=== PATIENT | female | born 1945 | race Caucasian/White ===

== ENCOUNTER → 2017-07-28 13:34 | Outpatient (CLI) | payer MEDICARE, SELFPAY ==
[2017-07-28 16:59] LABS: Absolute Lymphocyte Count 1.54 X10^3/ul (0.83-4.51); Absolute Neutrophil Count 3.5 X10^3/uL (2.0-7.7); Basophil# 0.02 X10^3/uL; Basophil% 0.3 % (0-1); Eosinophil# 0.16 X10^3/uL; Eosinophils% 2.8 % (0-5); Hematocrit 40.8 % (37-47); Hemoglobin 12.7 g/dl (12.0-15.0); Lymphocyte # 1.54 X10^3/ul (4.0); Lymphocyte % 26.5 % (19-41); Mean Corp Hgb Conc 31.1 g/gl (32-36); Mean Corpuscular Hgb 30.6 pg (27.0-32.0); Mean Corpuscular Volume 98.3 fL (81-99); Mean Platelet Vol. 9.5 fl (6.2-12.0); Monocyte# 0.58 X10^3/uL; Neutrophil % 60.2 % (47-70); Platelet Count 248 K/mm3 (150-450); RBC Distribution Width CV 15.6 % (11.6-14.6); RBC Distribution Width SD 55.6 fl (35.1-43.9); Red Blood Count 4.15 M/mm3 (4.2-5.4); White Blood Count 5.8 K/mm3 (4.4-11.0)
[2017-07-28 17:04] LABS: POSITIVE COUNT NO; POSITIVE DIFFERENTIAL NO; POSITIVE MORPHOLOGY NO
[2017-07-28 17:31] LABS: ALB/GLOB Ratio 0.8 RATIO (0.9-2.4); AST(SGOT) 21 U/L (15-37); Alanine Aminotransfer ALT/SGPT 30 U/L (13-56); Albumin, Serum 3.3 g/dL (3.2-5.0); Alkaline Phosphatase 136 U/L (45-117); Anion Gap 10 (5-15); BUN 25 mg/dL (7-18); BUN/Creat Ratio 20.7 RATIO (10-20); Calcium,Total 8.9 mg/dL (8.5-10.1); Chloride 104 mmol/L (98-107); Creatinine, Serum 1.21 mg/dL (0.55-1.02); EST Glomerular Filtration Rate 47 mL/min (>60); Est Glom Filt Rate - Afr Amer 56 mL/min (>60); Globulin 3.9 g/dL (2.2-4.2); Glucose 88 mg/dL (74-106); Potassium 4.9 mmol/L (3.5-5.1); Protein, Total 7.2 g/dL (6.4-8.2); Sodium Level 140 mmol/L (136-145)
[2017-07-29 09:33] LABS: Vitamin D,25 Hydroxy 23.4 ng/mL (29.95-100.01)
== END ==
PROVIDERS: Family Provider Family Medicine Geriatric Medicine; PCP Family Medicine Geriatric Medicine; Visit Provider Family Medicine Geriatric Medicine
DX: E55.9 Vitamin D deficiency, unspecified (principal); I10 Essential (primary) hypertension
CPT/HCPCS: 36415; 80053; 82306; 84443; 85025

== ENCOUNTER 2017-09-15 15:00 | Outpatient (RCR) | payer MEDICARE, SELFPAY ==
--- NOTE | 2017-08-09 15:06 | HP.PTEVAL_ITS ---
Patient's Visit Information JOANIE RAMIREZ is a 72 year old F referred to Physical Therapy by Reynold DOVE with a diagnosis of Balance therapy.. Date of Evaluation: 08/09/17 Physical Therapist: Eligio Lane DPT, OC - Visit Plan Frequency: 2x /Week Duration: 4 Weeks Plan: Computerized bnalance test and then 2x/week for 4 weeks for: 1. VOR progression. 2. Balance focussing on weight shifts and vestibular. 3. General home based ex for LE /Postural strength. - Subjective Subjective: April had a TIA and balance has been off ever since. 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 Balance may have been off prior to TIA. Had a fall before the TIA but not since. No dizzyness. Does not need cane or walker. When she is walking it feel slike she veers to the right. H/O LBP and neuropathic pain and numbness in feet. Sleep is OK. Exercises: no. Does not work outside home. Does house hold chores and has son and law and grandson living with her(3 yo). Basic ADLs are OK with balance but is careful. Hobbies include hanging out with family. - Objective Walks slowly but I into PT. Transfers I. Gait is slightly neuropathic. VOR walking is challenging to keep eyes on target and veers R slightly. foam stance with ec is challenging. UE and LE AROM WFL. reflexes 0/3 in patella and achilles. Sensation diminished to gross light touch in feet and ankles. Strength LE ankles 4-/5, knee flex and ext 4/5 and hip flexion abd ext 3+/5. UE strength grossly 4-/5. - Balance Scores Functional Gait Assessment Score: 21 % Disability: 30.0000 CATSIB Score (Max score 120 seconds): 104 - Goals Goal 1:: FGA 25/30 to reduce fall risk. Goal Time Frame: 4-6 Weeks Goal 2:: Computerized balance testing and review results Goal Time Frame: 2 Weeks Goal 3:: I approp HEP to minimize future problems with neuropathy/strength/ balance. Goal Time Frame: 4-6 Weeks - Rehabilitation Potential Physical Therapy Diagnosis: Balance deficits. Rehabilitation Potential: Fair - Anticipated Interventions Patient/Client Instruction: Educate patient on: Condition, Risk Factors For the Purpose of:: To improve safety Therapeutic Exercise to Include: Strength training, Balance training For the Purpose of:: To improve ability of physical actions for home/community/ work/leisure, To improve safety Thank you for the opportunity to evaluate your patient. For Medicare and Medicare HMO plans, please review the plan of care and approve it. It will need to be FAXED BACK to us at [phone] for Medicare purposes. Please let me know if there are questions or concerns regarding this plan of care. Physician Signature: Date:
--- NOTE | 2017-08-16 15:36 | HP.PTCOM ---
PT Communication Note 08/16/[address] Reynold Samayoa , Thank you for the referral of Hawa to [facility] for balance assessment. I have enclosed a copy of the results for your review. In summation, she showed a general diminished ability to prioritize the sensory systems for her balance. She showed a discomfort with forward weight shift excursion and reaction time. Her Motor Control Test and Adaptation Test were normal. If there are questions regarding these results, please feel free to call me. I plan to see her 2x/week for 4 weeks to wrok on these deficits and a general ex program. Thank you for this referral. Sincerely, Eligio Lane DPT, OC Contact Information
--- NOTE | 2017-08-16 15:41 | HP.PTCOM_ITS ---
PT Communication Note 08/16/[address] Reynold Samayoa , Thank you for the referral of Hawa to [facility] for balance assessment. I have enclosed a copy of the results for your review. In summation, she showed a general diminished ability to prioritize the sensory systems for her balance. She showed a discomfort with forward weight shift excursion and reaction time. Her Motor Control Test and Adaptation Test were normal. If there are questions regarding these results, please feel free to call me. I plan to see her 2x/week for 4 weeks to wrok on these deficits and a general ex program. Thank you for this referral. Sincerely, Eligio Lane DPT, OC Contact Information
--- NOTE | 2017-09-15 15:58 | HP.PTDCSUM_ITS ---
HP - PT D/C Summary It has been my pleasure to treat JOANIE RAMIREZ under orders from [employer] Yao, for the diagnosis of Balance therapy. for a total of 9 visit(s). Discharge Date: 09/15/17 Please see the following information for a summary of their discharge status. - Subjective Subjective: Still has unsteady feeling when she stands up and turns without bracing. That is the main time. HEP: doing ball squeezes and band ex home with UE and LE. - Pain bilat. LE Pain Intensity (Out of 10): 0 - Overall Improvement % Improvement: 10 - Objective Objective/Function: +5 on FGA, romberg and on foam much better. Pt not feeling much better. - Goals Goal 1:: FGA 25/30 to reduce fall risk. Goal Progress: Goal Met Goal 2:: Computerized balance testing and review results Goal Progress: Goal Met Goal 3:: I approp HEP to minimize future problems with neuropathy/strength/ balance. Goal Progress: Goal Met - Plan Plan: D/C - D/C Information Discharge Comments: To continue HEP on own. Not feeling better but testing much better. If there are questions or concerns regarding this patient's physical therapy, please feel free to call me at [phone]. Thank you for the referral of this patient. Sincerely, Eligio Lane, ALEXAT, OC
== END 2017-09-15 19:00 | disposition home or self-care (01) ==
LOC: PT 15:00
PROVIDERS: Family Provider Family Medicine Geriatric Medicine; PCP Family Medicine Geriatric Medicine; Visit Provider Family Medicine Geriatric Medicine
DX: R26.9 Unspecified abnormalities of gait and mobility (principal)
CPT/HCPCS: 97110; 97162; 97530; 97750

== ENCOUNTER 2017-11-12 22:27 | Observation (INO) | payer MEDICARE, SELFPAY ==
[2017-11-12 22:28] VITALS: BP 198/74; PULSE 69; RESP 18; TEMP 36.6; O2SAT 97; BMI 32.5
--- NOTE | 2017-11-12 22:48 | CT_ITS ---
STUDY: CTA NECK WITH CONTRAST REASON FOR EXAM: Female, 72 years old. Headache RADIATION DOSAGE (If Supplied By Facility): CTDIvol = ( 27.86 ) mGy, DLP = ( 1460.79 ) mGycm TECHNIQUE: CT angiography with multi-detector data acquisition was performed from the aortic arch to the skull base following intravenous administration of 100 ml of Isovue 370 contrast. MIP images were reconstructed from the axial data set. Post-processing of the angiographic images was performed, with multiplanar reformation and 3D reconstruction. Individualized dose optimization techniques were used for this CT. COMPARISON: None. FINDINGS: AORTIC ARCH: Normal visualized aortic arch. Normal origins of the brachiocephalic, left common carotid, and left subclavian arteries. RIGHT CAROTID ARTERIES: Normal right common carotid artery (CCA). There is mild atherosclerotic plaque formation with minimal narrowing of the right carotid bulb. There is mild atherosclerotic plaque formation of the origin of the right internal carotid artery with less than 50% cross sectional diameter stenosis. There is atherosclerotic tortuous elongation of the cervical portion of the right internal carotid artery. Normal origin of the right external carotid artery (ECA). LEFT CAROTID ARTERIES: Normal left common carotid artery (CCA). There is mild atherosclerotic plaque formation with minimal narrowing of the left carotid bulb. There is mild atherosclerotic plaque formation of the origin of the left internal carotid artery with less than 50% cross sectional diameter stenosis. There is atherosclerotic tortuous elongation of the cervical portion of the left internal carotid artery. Normal origin of the left external carotid artery (ECA). VERTEBRAL ARTERIES: Normal bilateral vertebral arteries. CT/CTA Neck W/WO Contrast IMPRESSION: There is calcified plaque at the carotid bulbs without evidence of stenosis. There is tortuous elongation of the cervical internal carotid arteries laterally, greater on the RIGHT. There is NO dissection. The vertebral arteries are patent and normal in caliber. Electronically Signed: Mahesh Teague MD at 0:32 EDT , Service support ,
--- NOTE | 2017-11-12 22:48 | EKG12_ITS ---
Test Reason : Blood Pressure : / mmHG Vent. Rate : 057 BPM Atrial Rate : 057 BPM P-R Int : 148 ms QRS Dur : 086 ms QT Int : 458 ms P-R-T Axes : 030 007 019 degrees QTc Int : 445 ms Sinus bradycardia Otherwise normal ECG Confirmed by SAFIA MEDINA, PETER ([id number]), scientific publications editor [employer] [place] ([id number]) on 11/14/2017 3:04:50 PM Referred By: Eligio Quick Confirmed By:PETER BAIG MD
--- NOTE | 2017-11-12 22:48 | CT_ITS ---
STUDY: CTA OF THE BRAIN REASON FOR EXAM: Female, 72 years old. TIA RADIATION DOSAGE (If Supplied By Facility): CTDIvol = ( 27.86 ) mGy, DLP = ( 1460.79 ) mGycm TECHNIQUE: CT angiography was performed with a multi-detector CT scanner. Data acquisition was obtained from the skull base through the vertex following intravenous administration of ml of . MIP images were reconstructed from the axial data set. Post-processing of the angiographic images was performed, with multiplanar reformation and 3D reconstruction. Individualized dose optimization techniques were used for this CT. COMPARISON: None. FINDINGS: Normal bilateral petrous carotid arteries. Normal right cavernous carotid artery with a normal supraclinoid bifurcation. Normal left cavernous carotid artery with a normal supraclinoid bifurcation. Normal right A1 segments of the anterior cerebral artery. Normal left A1 segments of the anterior cerebral artery. Normal intact anterior communicating artery (ACOM). Normal bilateral A2 segments of the anterior cerebral arteries. Normal right M1 and M2 segments of the middle cerebral arteries, with a normal M1 bifurcation. Normal left M1 and M2 segments of the middle cerebral arteries, with a normal M1 bifurcation. Normal right posterior communicating artery (PCOM). Normal left posterior communicating artery (PCOM). Normal bilateral vertebral arteries. Normal basilar artery with a normal basilar bifurcation. The visualized bilateral superior cerebellar (SCA) arteries are normal. Normal bilateral P1, P2 and visualized P3 segments of the posterior cerebral arteries. There is no demonstrated aneurysm of the [place]. There is no demonstrated abnormality of the visualized brain. CT/CTA Head W/WO Contrast IMPRESSION: Normal [place] without a demonstrated aneurysm or hemodynamically significant stenosis. Electronically Signed: Mahesh Teague MD at 1:04 EDT , Service support ,
--- NOTE | 2017-11-12 22:48 | RAD_ITS ---
STUDY: X-RAY CHEST REASON FOR EXAM: Female, 72 years old. Shortness of breath TECHNIQUE: Frontal view COMPARISON: None. FINDINGS: There are fibrotic changes at the LEFT lung base. There are NO active infiltrates. There is NO pleural effusion or pneumothorax. Normal size heart. Normal mediastinum and carlos manuel. Normal visualized pulmonary arteries. Normal visualized aortic arch and descending thoracic aorta. Normal visualized thoracic spine. Normal visualized ribs, clavicles, and shoulders. There is no demonstrated abnormality of the visualized soft tissue structures of the upper abdomen. RAD/Chest 1 View IMPRESSION: There is NO acute cardiopulmonary abnormality. Electronically Signed: Mahesh Teague MD at 0:21 EDT , Service support ,
--- NOTE | 2017-11-12 23:04 | ED.VISSUMM ---
- ER Visit Summary Date of Service: 11/12/17 Chief Complaint: Right facial droop History of Present Illness: The patient is a 72 F presents complaining of right facial droop, headache. Patient states she has had a gradual onset headache that has been persistent throughout the day. Around 10 PM this evening her family noticed a right facial droop. This has since improved. She had no difficulty with speech. She has had bilateral blurry vision throughout the day as well. She denies confusion. She also complains of numbness to the right side of her face as well as right foot. Denies other complaints. Physical Examination: Vitals are stable. Patient is afebrile. Alert no acute distress. HEENT exam is unremarkable. Neck is supple. Lungs are clear and equal bilaterally. Heart is regular rate and rhythm. Abdomen is soft nontender nondistended. Extremities are unremarkable. Skin is warm and dry. NIH 1-decreased sensation on right face and lower extremity Remainder of exam is unremarkable. Emergency Department Course and Treatment: EKG sinus bradycardia rate of 57. CBC is unremarkable. Chemistries show glucose 123, BUN 26, creatinine 1.58. INR 0.9. Troponin is negative. Chest x-ray shows no acute process. CTA neck shows there is calcified plaque at the carotid bulbs without evidence of stenosis. There is tortuous elongation of the cervical internal carotid arteries laterally, greater on the RIGHT. There is NO dissection. The vertebral arteries are patent and normal in caliber. CTA head shows normal [place] without a demonstrated aneurysm or hemodynamically significant stenosis. On reevaluation, her facial droop and right-sided facial numbness have resolved. She has mild subjective paresthesia of the right lower extremity. Discussed with the hospitalist for admission. Disposition: Observation Impression: TIA This note was generated with [employer] dictation software. It may contain incorrect words, spelling, and punctuation that were not noted in review of the chart prior to signing ED Disposition - Plan for ED Patient: Chief Complaint: General Illness Referrals: Reynold Samayoa Chi, MD [Primary Care Provider] -
[2017-11-12 23:07] LABS: International Normalized Ratio 0.9; Partial Thromboplast Time 27.5 Seconds (24.1-36.2); Prothrombin Time (Protime)PT. 12.5 SECONDS (11.7-14.9)
[2017-11-12 23:16] LABS: Anion Gap 7 (5-15); BUN 26 mg/dL (7-18); BUN/Creat Ratio 16.5 RATIO (10-20); Calcium,Total 8.7 mg/dL (8.5-10.1); Chloride 101 mmol/L (98-107); Creatinine, Serum 1.58 mg/dL (0.55-1.02); EST Glomerular Filtration Rate 34 mL/min (>60); Est Glom Filt Rate - Afr Amer 41 mL/min (>60); Estimated Creatinine Clearance 26.62 ml/min; Glucose 123 mg/dL (74-106); Potassium 3.5 mmol/L (3.5-5.1); Sodium Level 140 mmol/L (136-145)
[2017-11-12 23:22] LABS: Absolute Lymphocyte Count 2.23 X10^3/ul (0.83-4.51); Absolute Neutrophil Count 3.5 X10^3/uL (2.0-7.7); Basophil# 0.01 X10^3/uL; Basophil% 0.2 % (0-1); Eosinophil# 0.18 X10^3/uL; Eosinophils% 2.8 % (0-5); Hematocrit 42.2 % (37-47); Hemoglobin 13.5 g/dl (12.0-15.0); Lymphocyte # 2.23 X10^3/ul (4.0); Lymphocyte % 34.3 % (19-41); Mean Corpuscular Hgb 30.7 pg (27.0-32.0); Mean Corpuscular Volume 95.9 fL (81-99); Mean Platelet Vol. 9.5 fl (6.2-12.0); Monocyte# 0.59 X10^3/uL; Monocyte% 9.1 % (0-10); Neutrophil % 53.6 % (47-70); Platelet Count 215 K/mm3 (150-450); RBC Distribution Width CV 14.1 % (11.6-14.6); White Blood Count 6.5 K/mm3 (4.4-11.0)
[2017-11-12 23:26] LABS: POSITIVE COUNT NO; POSITIVE DIFFERENTIAL NO; POSITIVE MORPHOLOGY NO
[2017-11-13] VITALS (13 sets, daily range): BP systolic 123–155; BP diastolic 51–90; PULSE 53–73; RESP 14–18; TEMP 36.4–36.7; O2SAT 92–98; BMI 32.5
[2017-11-13 00:26] LABS: Bedside Glucose 109 mg/dL (70-110)
--- NOTE | 2017-11-13 02:47 | PCM.HP.STD ---
Problem List (1) S/P total hip arthroplasty Status: Acute Comment: [facility] Dr Tamayo, 03/14/15 (2) Hypertension Status: Chronic (3) Obesity (BMI 30.0-34.9) Status: Chronic (4) Osteoarthritis Status: Chronic (5) TIA (transient ischemic attack) Status: Acute History of Present Illness Date of Admission: 11/12/17 Chief Complaint: TIA The patient is a 72 year old female w/ h/o HTN, TIA, and OA admitted for TIA. She has right facial droop around 7PM. Droop started sudden and slowly resolved over the next few hours. No speech or weakness noted. She also noted blurry vision. She also has a frontal headache at that time. Headache is dull-aching and constant. Headache improved over the next few hours as well. Nothing made the headache better or worse. Headache was severe. Past Medical History Past Medical History (Chronic Problems): Chronic Problems Hypertension (Chronic) Osteoarthritis (Chronic) Obesity (BMI 30.0-34.9) (Chronic) Allergies Penicillins Adverse Reaction (Verified 11/12/17 22:31) Upset Stomach Home Medications: Ambulatory Orders Medication Instructions Recorded Cholecalciferol (VIT D3) [Vitamin 1,000 unit PO DAILY 03/13/15 D3] Hydrochlorothiazide 12.5 mg PO DAILY 03/13/15 Losartan Potassium [Cozaar] 100 mg PO DAILY 03/13/15 Metoprolol(XL)Succ [Toprol Xl 100 mg PO DAILY 03/13/15 (Beta Mikel)] Nitroglycerin [Nitrostat] 0.4 mg SUBLINGUAL Q5M PRN 03/13/15 Omeprazole [Prilosec] 20 mg PO DAILY 03/13/15 Pravastatin [Pravachol] 40 mg PO QHS 03/13/15 Acetaminophen [Tylenol Tablet] 650 mg PO Q4H PRN PRN #0 tablet 04/08/15 Oxycodone HCl/Acetaminophen 1 - 2 tablet PO Q4H PRN PRN #30 04/08/15 [Percocet 5-325] tablet Senna/Docusate Sodium [Senokot-S] 2 tablet PO BID #0 tablet 04/08/15 Baclofen 10 mg PO QHS 11/13/17 Famotidine 40 mg PO BID 11/13/17 Gabapentin [Neurontin] 300 mg PO QHS 11/13/17 Plavix 75 mg PO DAILY 11/13/17 Surgical History: total hip arthroplasty - right, 03/24/15, Dr Tamayo, [facility], tonsillectomy Psychiatric History: No pertinent psych hx [employer] History: No pertinent [employer] history Smoking Status: Former smoker - *Family History Maternal History Items: Heart Disease - age 79 Paternal History Items: - - in 60's mental health Offspring History Items: - - 3 children in good health Review of Systems Constitutional: Denies: Chills, Fever, Weight Change Eyes: Reports: Blurred vision HEENT: Denies: Head Aches, Sinus Congestion, Sinus Drainage Cardiovascular: Denies: Chest Pain, Palpitations Respiratory: Denies: Cough, Shortness of breath at rest, Sputum production Gastrointestinal: Denies: Abdominal Pain, Nausea, Vomiting Genitourinary: Denies: Dysuria Musculoskeletal: Denies: Joint Pain, Joint Tenderness Skin: Denies: Rash, Wounds Neurological: Reports: Blurred vision, - - Right facial droop. Denies: Focal weakness, Numbness, Tingling Psychiatric: Denies: Anxiety, Depression, Homicidal Ideations, Suicidal Ideations Hematologic/ Lymphatic: Denies: Easy Bruising, Easy Bleeding VTE Information - Inpt Only VTE Present on Admission: No VTE Mechan Device Prophylaxis: SCD's VTE Pharm Prophylaxis ordered?: Yes Patient Problems: Active and Suspected Problems TIA (transient ischemic attack) (Acute) - Physical Exam General: Alert, Oriented x3, Cooperative HEENT: Atraumatic, PERRLA, EOMI, Normocephalic Neck: Supple, No JVD, Negative Carotid Bruits Lungs: Clear to auscultation, Normal air movement Cardiovascular: Regular rate, No murmurs Abdomen: Bowel Sounds Present, Soft, Non Tender Extremities: No edema, Capillary Refill Less than 3 Seconds Skin: No rashes, No breakdown Musculoskeletal: No Tenderness to Palpation of Joints or Extremities Neurological: Cranial nerves II-XII grossly intact Psych/Mental Status: Normal Affect, Appropriate Vital Signs Temp Pulse Resp BP Pulse Ox 97.8 F 61 15 135/55 H 94 11/12/17 22:28 11/13/17 00:29 11/13/17 00:29 11/13/17 00:29 11/13/17 00:29 Assessment/Plan All Active Problems TIA (transient ischemic attack) (Acute) S/P total hip arthroplasty (Acute) Anemia (Ruled-out) 72 year old female w/ h/o HTN, TIA, and OA admitted for TIA. 1) Right facial droop: Most likely secondary to TIA. Resolved. CTA negative. Will get MRI and ECHO in AM. Previous workup in April 2017 for TIA negative. C/w ASA and statin. Supportive care. 2) HTN: SBP 120s. C/w meds. Monitor. 3) TRACE: Most likely secondary to azotemia. Hydration. Monitor.
--- NOTE | 2017-11-13 02:48 | NURSING ---
Called ED charge master specialist, Liz at this time to confirm Pt okay to come to PCU.
--- NOTE | 2017-11-13 02:59 | HP.PCM_ITS ---
Problem List (1) S/P total hip arthroplasty Status: Acute Comment: [facility] Dr Tamayo, 03/14/15 (2) Hypertension Status: Chronic (3) Obesity (BMI 30.0-34.9) Status: Chronic (4) Osteoarthritis Status: Chronic (5) TIA (transient ischemic attack) Status: Acute History of Present Illness Date of Admission: 11/12/17 Chief Complaint: TIA The patient is a 72 year old female w/ h/o HTN, TIA, and OA admitted for TIA. She has right facial droop around 7PM. Droop started sudden and slowly resolved over the next few hours. No speech or weakness noted. She also noted blurry vision. She also has a frontal headache at that time. Headache is dull-aching and constant. Headache improved over the next few hours as well. Nothing made the headache better or worse. Headache was severe. Past Medical History Past Medical History (Chronic Problems): Chronic Problems Hypertension (Chronic) Osteoarthritis (Chronic) Obesity (BMI 30.0-34.9) (Chronic) Allergies Penicillins Adverse Reaction (Verified 11/12/17 22:31) Upset Stomach Home Medications: Ambulatory Orders Medication Instructions Recorded Cholecalciferol (VIT D3) [Vitamin 1,000 unit PO DAILY 03/13/15 D3] Hydrochlorothiazide 12.5 mg PO DAILY 03/13/15 Losartan Potassium [Cozaar] 100 mg PO DAILY 03/13/15 Metoprolol(XL)Succ [Toprol Xl 100 mg PO DAILY 03/13/15 (Beta Mikel)] Nitroglycerin [Nitrostat] 0.4 mg SUBLINGUAL Q5M PRN 03/13/15 Omeprazole [Prilosec] 20 mg PO DAILY 03/13/15 Pravastatin [Pravachol] 40 mg PO QHS 03/13/15 Acetaminophen [Tylenol Tablet] 650 mg PO Q4H PRN PRN #0 tablet 04/08/15 Oxycodone HCl/Acetaminophen 1 - 2 tablet PO Q4H PRN PRN #30 04/08/15 [Percocet 5-325] tablet Senna/Docusate Sodium [Senokot-S] 2 tablet PO BID #0 tablet 04/08/15 Baclofen 10 mg PO QHS 11/13/17 Famotidine 40 mg PO BID 11/13/17 Gabapentin [Neurontin] 300 mg PO QHS 11/13/17 Plavix 75 mg PO DAILY 11/13/17 Surgical History: total hip arthroplasty - right, 03/24/15, Dr Tamayo, [facility], tonsillectomy Psychiatric History: No pertinent psych hx BINDERY CHIEF History: No pertinent BINDERY CHIEF history Smoking Status: Former smoker - *Family History Maternal History Items: Heart Disease - age 79 Paternal History Items: - - in 60's mental health Offspring History Items: - - 3 children in good health Review of Systems Constitutional: Denies: Chills, Fever, Weight Change Eyes: Reports: Blurred vision HEENT: Denies: Head Aches, Sinus Congestion, Sinus Drainage Cardiovascular: Denies: Chest Pain, Palpitations Respiratory: Denies: Cough, Shortness of breath at rest, Sputum production Gastrointestinal: Denies: Abdominal Pain, Nausea, Vomiting Genitourinary: Denies: Dysuria Musculoskeletal: Denies: Joint Pain, Joint Tenderness Skin: Denies: Rash, Wounds Neurological: Reports: Blurred vision, - - Right facial droop. Denies: Focal weakness, Numbness, Tingling Psychiatric: Denies: Anxiety, Depression, Homicidal Ideations, Suicidal Ideations Hematologic/ Lymphatic: Denies: Easy Bruising, Easy Bleeding VTE Information - Inpt Only VTE Present on Admission: No VTE Mechan Device Prophylaxis: SCD's VTE Pharm Prophylaxis ordered?: Yes Patient Problems: Active and Suspected Problems TIA (transient ischemic attack) (Acute) - Physical Exam General: Alert, Oriented x3, Cooperative HEENT: Atraumatic, PERRLA, EOMI, Normocephalic Neck: Supple, No JVD, Negative Carotid Bruits Lungs: Clear to auscultation, Normal air movement Cardiovascular: Regular rate, No murmurs Abdomen: Bowel Sounds Present, Soft, Non Tender Extremities: No edema, Capillary Refill Less than 3 Seconds Skin: No rashes, No breakdown Musculoskeletal: No Tenderness to Palpation of Joints or Extremities Neurological: Cranial nerves II-XII grossly intact Psych/Mental Status: Normal Affect, Appropriate Vital Signs Temp Pulse Resp BP Pulse Ox 97.8 F 61 15 135/55 H 94 11/12/17 22:28 11/13/17 00:29 11/13/17 00:29 11/13/17 00:29 11/13/17 00:29 Assessment/Plan All Active Problems TIA (transient ischemic attack) (Acute) S/P total hip arthroplasty (Acute) Anemia (Ruled-out) 72 year old female w/ h/o HTN, TIA, and OA admitted for TIA. 1) Right facial droop: Most likely secondary to TIA. Resolved. CTA negative. Will get MRI and ECHO in AM. Previous workup in April 2017 for TIA negative. C/w ASA and statin. Supportive care. 2) HTN: SBP 120s. C/w meds. Monitor. 3) TRACE: Most likely secondary to azotemia. Hydration. Monitor.
--- NOTE | 2017-11-13 03:23 | ECHOD_ITS ---
Reason For Study: TIA/CVA Procedure This was a 2D Doppler, Color Flow transthoracic echocardiogram. The exam was of fair technical quality due to diminished acoustic windows. The study was technically difficult. Exam performed portable in patient room. PT'S IV WAS ALREADY REMOVED SHE WAS DISCHARGED BEFORE ECHO WAS DONE. Left Ventricle Normal LV size. Left ventricular systolic function is normal. The estimated ejection fraction is 65 %. No regional wall motion abnormalities noted. Right Ventricle Normal RV size. Normal systolic function. Atria The left atrium is moderately enlarged. Normal right atrium. No doppler evidence for ASD. Mitral Valve There is no mitral annular calcification. Normal mitral valve. Mild (1+) mitral valve insufficiency. Tricuspid Valve Normal tricuspid valve. Trivial tricuspid valve insufficiency. Right ventricular systolic pressure estimated to be 27 mmHg. Aortic Valve The aortic valve is not well visualized. Pulmonic Valve The pulmonic valve is not well visualized. Great Vessels Normal sized aortic root. Pericardium/Pleural No pericardial effusion. MMode/2D Measurements & Calculations LVIDd: 4.6 cm IVSd: 1.1 cm Ao root diam: 3.1 cm LVIDs: 3.0 cm LVPWd: 1.00 cm LA dimension: 4.1 cm RVDd: 2.6 cm FS: 35.0 % LAV(MOD-bp): 65.6 ml LA A4 area: 20.8 cm2 RA A4 area: 14.5 cm2 LAV(MOD-bp) Indexed: 35.2 ml/m2 LAV(MOD-sp2): 60.3 ml LAV(MOD-sp4): 66.1 ml Doppler Measurements & Calculations MV E max ric: 102.0 cm/sec Lat Peak E' Ric: 11.5 cm/sec Med Peak E' Ric: 8.9 cm/sec MV A max ric: 90.7 cm/sec E/E' lat: 8.9 E/E' med: 11.5 MV E/A: 1.1 Ao V2 max: 143.8 cm/sec LV V1 max: 109.4 cm/sec PA V2 max: 94.2 cm/sec Ao max P.3 mmHg LV V1 max P.8 mmHg TR max ric: 242.7 cm/sec TR max P.6 mmHg Interpretation Summary The study was technically difficult. Left ventricular systolic function is normal. The estimated ejection fraction is 65 %. The left atrium is moderately enlarged. Mild (1+) mitral valve insufficiency. Trivial tricuspid valve insufficiency. Right ventricular systolic pressure estimated to be 27 mmHg. Transmitral diastolic flow velocities suggest diastolic dysfunction (pseudonormal pattern). Ordering Physician: Nick Trinidad Referring Physician: Eligio Quick Chi Performed By: Cande Niño RDCS, RVT
[2017-11-13] MEDS: 0.9% Normal Saline 1,000 ML 100 ML IV ×2 (04:01→13:20)
[2017-11-13 04:21] LABS: Thyroid Stim Hormone (TSH) 2.08 uIU/mL (0.358-3.74)
[2017-11-13 04:23] LABS: Anion Gap 13 (5-15); BUN 23 mg/dL (7-18); BUN/Creat Ratio 17.2 RATIO (10-20); Chloride 105 mmol/L (98-107); Cholesterol 174 mg/dL (200); Creatinine, Serum 1.34 mg/dL (0.55-1.02); EST Glomerular Filtration Rate 41 mL/min (>60); Est Glom Filt Rate - Afr Amer 50 mL/min (>60); Estimated Creatinine Clearance 31.39 ml/min; Glucose 98 mg/dL (74-106); High Density Lipoprotein 53 mg/dL; Potassium 3.7 mmol/L (3.5-5.1); Sodium Level 143 mmol/L (136-145); Triglycerides 131 mg/dL; Very Low Density Lipoprotein 26 mg/dL (5-40)
[2017-11-13] MEDS: Venlafaxine HCl 75 MG Tablet PO ×3 (05:28→22:08)
[2017-11-13] MEDS: Heparin Injection (Vial) 5,000 UNIT/ML VIAL 5000 UNIT SC ×3 (05:28→22:08)
[2017-11-13] MEDS: Ondansetron 4 MG/2 ML Vial IV ×2 (05:31→17:04)
[2017-11-13] MEDS: Senna/Docusate Sodium 1 Tablet 2 TABLET PO (10:39)
[2017-11-13] MEDS: Losartan Potassium 100 MG Tablet PO (10:39)
[2017-11-13] MEDS: Metoprolol(XL)Succ 100 MG Tablet PO (10:39)
[2017-11-13] MEDS: HYDROCHLOROTHIAZIDE 12.5 MG CAPSULE PO (10:39)
[2017-11-13] MEDS: Pantoprazole Sodium 20 MG Tablet PO (10:39)
[2017-11-13] MEDS: Aspirin 325 MG Tablet PO (10:39)
[2017-11-13] MEDS: amLODIPine 5 MG Tablet PO (10:39)
[2017-11-13] MEDS: Iron Polysaccharide Complex 150 MG CAPSULE PO (10:40)
--- NOTE | 2017-11-13 12:34 | PCM.PN.HOSP ---
Patient Problems: Active and Suspected Problems TIA (transient ischemic attack) (Acute) Facial droop (Acute) Headache (Acute) Subjective: Patient is a 72-year-old female with a history of hypertension, TIA and osteoarthritis. She was admitted for TIA. She was admitted on 11/13/2017 with complaint of right facial droop which started around 7 PM on 11/12/2017. It was sudden and resolved by 9:30 PM when she reported to the hospital. She had no speech defect or focal weakness. She had associated bilateral blurred vision which is improved by time to go to hospital and also complained of generalized weakness. She also had a frontal headache which had resolved. Of note patient also had a TIA about 6 months ago. To be managed for TIA. Patient seen and examined. She has no complaints and feels well. Mild drifted on the care overnight. She denied any fever or chills, any cough or chest pain, shortness of breath, abdominal pain, diarrhea vomiting. Review of systems otherwise negative. Is awaiting MRI and MRA of the brain. Vitals/I&O's: Vital Signs Temp Pulse Resp BP Pulse Ox 98 F 66 16 123/62 H 92 11/13/17 10:20 11/13/17 11:04 11/13/17 10:20 11/13/17 10:39 11/13/17 10:20 Oxygen Delivery Method Room Air Weight: 183 lb 10.321 oz Body Mass Index (BMI) 32.5 Intake and Output for Last 24 Hours 11/11/17 11/12/17 11/13/17 23:59 23:59 23:59 Intake Total 1107 / 1107 Balance 1107 / 1107 General: Alert, Oriented x3, Cooperative HEENT: Atraumatic, PERRLA, EOMI, Normocephalic Oral: Moist Mucosa Neck: Supple, No JVD, Negative Carotid Bruits Lungs: Clear to auscultation, Normal air movement, No rhonchi, No wheeze, No rales Cardiovascular: Regular rate, Regular Rhythm, Normal S1, Normal S2, No murmurs Abdomen: Bowel Sounds Present, Soft, Non Tender, Non-Distended, No Hepato-splenomegaly Extremities: No clubbing, No cyanosis, No edema, Capillary Refill Less than 3 Seconds Skin: No rashes, No breakdown Musculoskeletal: No Tenderness to Palpation of Joints or Extremities Lymphatic: No Cervical, Supraclavicular, or Inguinal Adenopathy Neurological: Cranial nerves II-XII grossly intact, Neuro grossly intact, Motor Exam 5/5 strength throughout, Sensory exam intact to light touch and pain, Coordination normal, Gait narrow based and stable, - - No pronator drift. Cerebellar exam is normal. Gait normal. Psych/Mental Status: Normal Affect, Appropriate, Alert and oriented to time, place, person, mood and affect Laboratory Results 11/13/17 03:44: Troponin I < 0.015, TSH 2.08 11/13/17 03:44: Sodium 143, Potassium 3.7, Chloride 105, Carbon Dioxide 25.0, Anion Gap 13, BUN 23 H, Creatinine 1.34 H, Estim Creat Clear Calc 31.39, Est GFR (MDRD) Af Amer 50 L, Est GFR (MDRD) Non-Af 41 L, BUN/Creatinine Ratio 17.2, Glucose 98, Calcium TNP, Triglycerides 131, Cholesterol 174, LDL Cholesterol 95, VLDL Cholesterol 26, HDL Cholesterol 53 Current Medications Acetaminophen (Tylenol) 650 mg PO Q4H PRN PRN PRN Reason: Mild Pain (0-3/10)/Headache Amlodipine Besylate (Norvasc) 5 mg PO DAILY [facility] Last Admin: 11/13/17 10:39 Dose: 5 mg Aspirin (Aspirin) 325 mg PO BIDCM [facility] Last Admin: 11/13/17 10:39 Dose: 325 mg Cholecalciferol (Vitamin D) 1,000 unit PO DAILY [facility] Last Admin: 11/13/17 10:40 Dose: 1,000 unit Heparin Sodium (Porcine) (Heparin Na) 5,000 unit SC Q8 [facility] Last Admin: 11/13/17 05:28 Dose: 5,000 units Hydrochlorothiazide (Hydrochlorothiazide) 12.5 mg PO DAILY [facility] Last Admin: 11/13/17 10:39 Dose: 12.5 mg Sodium Chloride () 1,000 mls @ 100 mls/hr IV .Q10H [facility] Last Admin: 11/13/17 04:01 Dose: 100 mls/hr Losartan Potassium (Cozaar) 100 mg PO DAILY [facility] Last Admin: 11/13/17 10:39 Dose: 100 mg Magnesium Hydroxide (Milk Of Magnesia) 30 ml PO DAILY PRN PRN Reason: Constipation Metoprolol Succinate (Toprol Xl (Beta Mikel)) 100 mg PO DAILY [facility] Last Admin: 11/13/17 10:39 Dose: 100 mg Nitroglycerin (Nitrostat) 0.4 mg SUBLINGUAL Q5M PRN PRN Reason: Chest Pain Ondansetron HCl (Zofran) 4 mg IV Q6H PRN PRN PRN Reason: NAUSEA Last Admin: 11/13/17 05:31 Dose: 4 mg Pantoprazole Sodium (Protonix) 20 mg PO DAILY [facility] Last Admin: 11/13/17 10:39 Dose: 20 mg Polysaccharide Iron Complex (Ferrex 150) 150 mg PO DAILYCM [facility] Last Admin: 11/13/17 10:40 Dose: 150 mg Pravastatin Sodium (Pravachol) 40 mg PO QHS [facility] Senna/Docusate Sodium (Senokot-S, Marysol-Colace) 2 tablet PO BID [facility] Last Admin: 11/13/17 10:39 Dose: 2 tablet Sodium Chloride () 5 - 30 ml IV UD PRN PRN Reason: SALINE FLUSH Venlafaxine HCl (Effexor) 75 mg PO TID [facility] Last Admin: 11/13/17 05:28 Dose: 75 mg Medical Necessity - Tobacco Use Smoking Status: Former smoker Assessment/Plan All Active Problems TIA (transient ischemic attack) (Acute) Facial droop (Acute) Headache (Acute) S/P total hip arthroplasty (Acute) Anemia (Ruled-out) 2-year-old female with a history of TIA and hypertension as well as osteoarthritis reporting that a few hours history of right-sided mouth droop which have resolved within one and half hours. 1. TIA The second TIA in [address] was negative. Workup in April 2017 for TIA which was negative. On aspirin and statin. To continue. Get MRI and MRA as well as echo today. Will benefit from echo with bubble study on account of recurrent TIA. neurology consulted. PT/OT consult fall precautions. 2. HTN: controlled. on chlorothiazide and losartan as well as amlodipine and metoprolol 3. Osteoarthritis of hip: stable DVT prophylaxis; heparin This note was generated with [employer] software. It may contain incorrect words, spelling, and punctuation that were not noted in checking the note before signing. Code Visit OBSV E&M: 45640 Subsequent observation care L2
--- NOTE | 2017-11-13 12:39 | PN_ITS ---
Patient Problems: Active and Suspected Problems TIA (transient ischemic attack) (Acute) Facial droop (Acute) Headache (Acute) Subjective: Patient is a 72-year-old female with a history of hypertension, TIA and osteoarthritis. She was admitted for TIA. She was admitted on 11/13/2017 with complaint of right facial droop which started around 7 PM on 11/12/2017. It was sudden and resolved by 9:30 PM when she reported to the hospital. She had no speech defect or focal weakness. She had associated bilateral blurred vision which is improved by time to go to hospital and also complained of generalized weakness. She also had a frontal headache which had resolved. Of note patient also had a TIA about 6 months ago. To be managed for TIA. Patient seen and examined. She has no complaints and feels well. Mild drifted on the care overnight. She denied any fever or chills, any cough or chest pain , shortness of breath, abdominal pain, diarrhea vomiting. Review of systems otherwise negative. Is awaiting MRI and MRA of the brain. Vitals/I&O's: Vital Signs Temp Pulse Resp BP Pulse Ox 98 F 66 16 123/62 H 92 11/13/17 10:20 11/13/17 11:04 11/13/17 10:20 11/13/17 10:39 11/13/17 10:20 Oxygen Delivery Method Room Air Weight: 183 lb 10.321 oz Body Mass Index (BMI) 32.5 Intake and Output for Last 24 Hours 11/11/17 11/12/17 11/13/17 23:59 23:59 23:59 Intake Total 1107 / 1107 Balance 1107 / 1107 General: Alert, Oriented x3, Cooperative HEENT: Atraumatic, PERRLA, EOMI, Normocephalic Oral: Moist Mucosa Neck: Supple, No JVD, Negative Carotid Bruits Lungs: Clear to auscultation, Normal air movement, No rhonchi, No wheeze, No rales Cardiovascular: Regular rate, Regular Rhythm, Normal S1, Normal S2, No murmurs Abdomen: Bowel Sounds Present, Soft, Non Tender, Non-Distended, No Hepato- splenomegaly Extremities: No clubbing, No cyanosis, No edema, Capillary Refill Less than 3 Seconds Skin: No rashes, No breakdown Musculoskeletal: No Tenderness to Palpation of Joints or Extremities Lymphatic: No Cervical, Supraclavicular, or Inguinal Adenopathy Neurological: Cranial nerves II-XII grossly intact, Neuro grossly intact, Motor Exam 5/5 strength throughout, Sensory exam intact to light touch and pain, Coordination normal, Gait narrow based and stable, - - No pronator drift. Cerebellar exam is normal. Gait normal. Psych/Mental Status: Normal Affect, Appropriate, Alert and oriented to time, place, person, mood and affect Laboratory Results 11/13/17 03:44: Troponin I < 0.015, TSH 2.08 11/13/17 03:44: Sodium 143, Potassium 3.7, Chloride 105, Carbon Dioxide 25.0, Anion Gap 13, BUN 23 H, Creatinine 1.34 H, Estim Creat Clear Calc 31.39, Est GFR (MDRD) Af Amer 50 L, Est GFR (MDRD) Non-Af 41 L, BUN/Creatinine Ratio 17.2, Glucose 98, Calcium TNP, Triglycerides 131, Cholesterol 174, LDL Cholesterol 95 , VLDL Cholesterol 26, HDL Cholesterol 53 Current Medications Acetaminophen (Tylenol) 650 mg PO Q4H PRN PRN PRN Reason: Mild Pain (0-3/10)/Headache Amlodipine Besylate (Norvasc) 5 mg PO DAILY [facility] Last Admin: 11/13/17 10:39 Dose: 5 mg Aspirin (Aspirin) 325 mg PO BIDCM [facility] Last Admin: 11/13/17 10:39 Dose: 325 mg Cholecalciferol (Vitamin D) 1,000 unit PO DAILY [facility] Last Admin: 11/13/17 10:40 Dose: 1,000 unit Heparin Sodium (Porcine) (Heparin Na) 5,000 unit SC Q8 [facility] Last Admin: 11/13/17 05:28 Dose: 5,000 units Hydrochlorothiazide (Hydrochlorothiazide) 12.5 mg PO DAILY [facility] Last Admin: 11/13/17 10:39 Dose: 12.5 mg Sodium Chloride () 1,000 mls @ 100 mls/hr IV .Q10H [facility] Last Admin: 11/13/17 04:01 Dose: 100 mls/hr Losartan Potassium (Cozaar) 100 mg PO DAILY [facility] Last Admin: 11/13/17 10:39 Dose: 100 mg Magnesium Hydroxide (Milk Of Magnesia) 30 ml PO DAILY PRN PRN Reason: Constipation Metoprolol Succinate (Toprol Xl (Beta Mikel)) 100 mg PO DAILY [facility] Last Admin: 11/13/17 10:39 Dose: 100 mg Nitroglycerin (Nitrostat) 0.4 mg SUBLINGUAL Q5M PRN PRN Reason: Chest Pain Ondansetron HCl (Zofran) 4 mg IV Q6H PRN PRN PRN Reason: NAUSEA Last Admin: 11/13/17 05:31 Dose: 4 mg Pantoprazole Sodium (Protonix) 20 mg PO DAILY [facility] Last Admin: 11/13/17 10:39 Dose: 20 mg Polysaccharide Iron Complex (Ferrex 150) 150 mg PO DAILYCM [facility] Last Admin: 11/13/17 10:40 Dose: 150 mg Pravastatin Sodium (Pravachol) 40 mg PO QHS [facility] Senna/Docusate Sodium (Senokot-S, Marysol-Colace) 2 tablet PO BID [facility] Last Admin: 11/13/17 10:39 Dose: 2 tablet Sodium Chloride () 5 - 30 ml IV UD PRN PRN Reason: SALINE FLUSH Venlafaxine HCl (Effexor) 75 mg PO TID [facility] Last Admin: 11/13/17 05:28 Dose: 75 mg Medical Necessity - Tobacco Use Smoking Status: Former smoker Assessment/Plan All Active Problems TIA (transient ischemic attack) (Acute) Facial droop (Acute) Headache (Acute) S/P total hip arthroplasty (Acute) Anemia (Ruled-out) 2-year-old female with a history of TIA and hypertension as well as osteoarthritis reporting that a few hours history of right-sided mouth droop which have resolved within one and half hours. 1. TIA * The second TIA in [address] was negative. * Workup in April 2017 for TIA which was negative. * On aspirin and statin. To continue. * Get MRI and MRA as well as echo today. * Will benefit from echo with bubble study on account of recurrent TIA. * neurology consulted. * PT/OT consult * fall precautions. * 2. HTN: controlled. on chlorothiazide and losartan as well as amlodipine and metoprolol 3. Osteoarthritis of hip: stable DVT prophylaxis; heparin This note was generated with [employer] software. It may contain incorrect words, spelling, and punctuation that were not noted in checking the note before signing. Code Visit OBSV E&M: 20722 Subsequent observation care L2
--- NOTE | 2017-11-13 14:49 | PCM.CONS.GEN ---
Problem List (1) Facial droop Status: Acute (2) Headache Status: Acute Reason for Consult Date of Consultation: 11/13/17 Reason for Consultation: Facial droop, KAUFMAN History of Present Illness: The patient is a 72 year old CF with PMH HTN, HLD, Neuropathy, H/O TIA in April 2017, H/O DVT 10 yrs ago (in the setting of cellulitis per patient) admitted with episode of facial droop and KAUFMAN. Per patient she was not feeling well since yesterday (11/12/17) morning, had frontal KAUFMAN about 8/10 in intensity, without any photophobia, phonophobia, no vision loss, denies temporal tenderness or jaw claudication. Per patient then around 7 PM yesterday had right facial droop with visual blurring which lasted for about less than an hour, but denies any speech disturbances, focal motor weakness or sensory loss. Per patient she lives with and her family, has stress in life at present, does not use cane or walker to ambulate, complaints of intermittent falls and balance issues due to neuropathy, complaints of numbness in the toes, does not need assistance for her ADLs, and does drive. Per patient she denies any neck pain or radicular symptoms, but complaints of chronic low back pain with radicular symptoms. At present patient denies any KAUFMAN, visual disturbances, speech disturbances, focal motor weakness or sensory loss. ABCD2 score 3 on admission, CT head reported negative and CTA head/neck not reported to show any hemodynamically significant stenosis or occlusion. Found to have TRACE on admission. Per patient she was on Plavix at home.[] Past Medical History Past Medical History (Chronic Problems): Chronic Problems Hypertension (Chronic) Osteoarthritis (Chronic) Obesity (BMI 30.0-34.9) (Chronic) Allergies Penicillins Adverse Reaction (Verified 11/12/17 22:31) Upset Stomach Home Medications: Ambulatory Orders Medication Instructions Recorded Cholecalciferol (VIT D3) [Vitamin 1,000 unit PO DAILY 03/13/15 D3] Hydrochlorothiazide 12.5 mg PO DAILY 03/13/15 Losartan Potassium [Cozaar] 100 mg PO DAILY 03/13/15 Metoprolol(XL)Succ [Toprol Xl 100 mg PO DAILY 03/13/15 (Beta Mikel)] Nitroglycerin [Nitrostat] 0.4 mg SUBLINGUAL Q5M PRN 03/13/15 Omeprazole [Prilosec] 20 mg PO DAILY 03/13/15 Pravastatin [Pravachol] 40 mg PO QHS 03/13/15 Acetaminophen [Tylenol Tablet] 650 mg PO Q4H PRN PRN #0 tablet 04/08/15 Oxycodone HCl/Acetaminophen 1 - 2 tablet PO Q4H PRN PRN #30 04/08/15 [Percocet 5-325] tablet Senna/Docusate Sodium [Senokot-S] 2 tablet PO BID #0 tablet 04/08/15 Baclofen 10 mg PO QHS 11/13/17 Famotidine 40 mg PO BID 11/13/17 Gabapentin [Neurontin] 300 mg PO QHS 11/13/17 Plavix 75 mg PO DAILY 11/13/17 Surgical History: total hip arthroplasty - right, 03/24/15, Dr Tamayo, [facility], tonsillectomy Psychiatric History: No pertinent psych hx 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 Lives: Spouse/ Significant Other Smoking Status: Former smoker Alcohol: None Drugs: None - *Family History Maternal History Items: Heart Disease - age 79 Paternal History Items: - - in 60's mental health Offspring History Items: - - 3 children in good health Review of Systems Constitutional: Reports: - - complete ROS negative except as documented in HPI - Physical Exam General: Alert HEENT: Normocephalic Neck: Supple Lungs: Clear to auscultation Cardiovascular: Normal S1, Normal S2 Abdomen: Bowel Sounds Present Extremities: No cyanosis Skin: No rashes Musculoskeletal: No Tenderness to Palpation of Joints or Extremities Neurological: - - consious, alert, CN 2-12 grossly intact, power 5/5 all 4 extremities, no sensory loss, no cerebellar signs, Reflexes + B/L B/S/T/K/A, gait deferred, NIHSS 0 at present. Vital Signs Temp Pulse Resp BP Pulse Ox 98 F 66 16 123/62 H 92 11/13/17 10:20 11/13/17 11:04 11/13/17 10:20 11/13/17 10:39 11/13/17 10:20 Oxygen Delivery Method Room Air Weight: 83.3 kg Body Mass Index (BMI) 32.5 Intake and Output for Last 24 Hours 11/11/17 11/12/17 11/13/17 23:59 23:59 23:59 Intake Total 1107 / 1107 Balance 1107 / 1107 Laboratory Tests Past 24 Hrs 11/13/17 11/13/17 03:44 03:44 Sodium 143 Potassium 3.7 Chloride 105 Carbon Dioxide 25.0 Anion Gap 13 BUN 23 H Creatinine 1.34 H Estim Creat Clear Calc 31.39 Est GFR (MDRD) Af Amer 50 L Est GFR (MDRD) Non-Af 41 L BUN/Creatinine Ratio 17.2 Glucose 98 Calcium TNP Troponin I < 0.015 Triglycerides 131 Cholesterol 174 LDL Cholesterol 95 VLDL Cholesterol 26 HDL Cholesterol 53 TSH 2.08 Assessment/Plan All Active Problems TIA (transient ischemic attack) (Acute) Facial droop (Acute) Headache (Acute) S/P total hip arthroplasty (Acute) Anemia (Ruled-out) The patient is a 72 year old CF with PMH HTN, HLD, Neuropathy, H/O TIA in April 2017, H/O DVT 10 yrs ago (in the setting of cellulitis per patient) admitted with episode of facial droop and KAUFMAN. Per patient she was not feeling well since yesterday (11/12/17) morning, had frontal KAUFMAN about 8/10 in intensity, without any photophobia, phonophobia, no vision loss, denies temporal tenderness or jaw claudication. Per patient then around 7 PM yesterday had right facial droop with visual blurring which lasted for about less than an hour, but denies any speech disturbances, focal motor weakness or sensory loss. Per patient she lives with and her family, has stress in life at present, does not use cane or walker to ambulate, complaints of intermittent falls and balance issues due to neuropathy, complaints of numbness in the toes, does not need assistance for her ADLs, and does drive. Per patient she denies any neck pain or radicular symptoms, but complaints of chronic low back pain with radicular symptoms. At present patient denies any KAUFMAN, visual disturbances, speech disturbances, focal motor weakness or sensory loss. ABCD2 score 3 on admission, CT head reported negative and CTA head/neck not reported to show any hemodynamically significant stenosis or occlusion. Found to have TRACE on admission. Per patient she was on Plavix at home. Impression Possible TIA R/O Lumbar Radiculopathy Peripheral Neuropathy Plan -Since ABCD2 score is around 3, can continue single AP, was on Plavix at home, can continue the same. Bleeding risk discussed in detail. Would recommend dual AP with ASA/Plavix if MRI brain shows stroke -On Pravastatin -CTA head/neck- no hemodynamically significant stenosis or occlusion -Await MRI brain w/o contrast -Check MRI L spine w/o contrast for low back pain with radicular symptoms, If neuroimaging is abnormal might need pain management or spine surgery consult. -Check ESR -Await TTE, Hba1c -LDL-95 -Stroke risk factors discussed and stroke education provided -Per patient she had recent EMG/NCS done, report not available but per patient it showed neuropathy. -PT/TO -GI/DVT prophylaxis -Fall precautions -Further medical management per primary team -Goal BP < 130/80 mmHg and goal Hba1c <7% -Neurology outpatient follow up in 2-3 weeks -Please call with questions if any -Thank you for allowing us to participate in patient's care and management I spent 60 minutes taking history, doing physical examination, reviewing medical records, coordinating care and counseling the patient. Code Visit Inpatient E&M: [id number] Init Hosp L3
--- NOTE | 2017-11-13 14:59 | CON.PCM_ITS ---
Problem List (1) Facial droop Status: Acute (2) Headache Status: Acute Reason for Consult Date of Consultation: 11/13/17 Reason for Consultation: Facial droop, KAUFMAN History of Present Illness: The patient is a 72 year old CF with PMH HTN, HLD, Neuropathy, H/O TIA in April 2017, H/O DVT 10 yrs ago (in the setting of cellulitis per patient) admitted with episode of facial droop and KAUFMAN. Per patient she was not feeling well since yesterday (11/12/17) morning, had frontal KAUFMAN about 8/10 in intensity, without any photophobia, phonophobia, no vision loss, denies temporal tenderness or jaw claudication. Per patient then around 7 PM yesterday had right facial droop with visual blurring which lasted for about less than an hour , but denies any speech disturbances, focal motor weakness or sensory loss. Per patient she lives with and her family, has stress in life at present, does not use cane or walker to ambulate, complaints of intermittent falls and balance issues due to neuropathy, complaints of numbness in the toes, does not need assistance for her ADLs, and does drive. Per patient she denies any neck pain or radicular symptoms, but complaints of chronic low back pain with radicular symptoms. At present patient denies any KAUFMAN, visual disturbances, speech disturbances, focal motor weakness or sensory loss. ABCD2 score 3 on admission, CT head reported negative and CTA head/neck not reported to show any hemodynamically significant stenosis or occlusion. Found to have TRACE on admission. Per patient she was on Plavix at home.[] Past Medical History Past Medical History (Chronic Problems): Chronic Problems Hypertension (Chronic) Osteoarthritis (Chronic) Obesity (BMI 30.0-34.9) (Chronic) Allergies Penicillins Adverse Reaction (Verified 11/12/17 22:31) Upset Stomach Home Medications: Ambulatory Orders Medication Instructions Recorded Cholecalciferol (VIT D3) [Vitamin 1,000 unit PO DAILY 03/13/15 D3] Hydrochlorothiazide 12.5 mg PO DAILY 03/13/15 Losartan Potassium [Cozaar] 100 mg PO DAILY 03/13/15 Metoprolol(XL)Succ [Toprol Xl 100 mg PO DAILY 03/13/15 (Beta Mikel)] Nitroglycerin [Nitrostat] 0.4 mg SUBLINGUAL Q5M PRN 03/13/15 Omeprazole [Prilosec] 20 mg PO DAILY 03/13/15 Pravastatin [Pravachol] 40 mg PO QHS 03/13/15 Acetaminophen [Tylenol Tablet] 650 mg PO Q4H PRN PRN #0 tablet 04/08/15 Oxycodone HCl/Acetaminophen 1 - 2 tablet PO Q4H PRN PRN #30 04/08/15 [Percocet 5-325] tablet Senna/Docusate Sodium [Senokot-S] 2 tablet PO BID #0 tablet 04/08/15 Baclofen 10 mg PO QHS 11/13/17 Famotidine 40 mg PO BID 11/13/17 Gabapentin [Neurontin] 300 mg PO QHS 11/13/17 Plavix 75 mg PO DAILY 11/13/17 Surgical History: total hip arthroplasty - right, 03/24/15, Dr Tamayo, [facility], tonsillectomy Psychiatric History: No pertinent psych hx 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 Lives: Spouse/ Significant Other Smoking Status: Former smoker Alcohol: None Drugs: None - *Family History Maternal History Items: Heart Disease - age 79 Paternal History Items: - - in 60's mental health Offspring History Items: - - 3 children in good health Review of Systems Constitutional: Reports: - - complete ROS negative except as documented in HPI - Physical Exam General: Alert HEENT: Normocephalic Neck: Supple Lungs: Clear to auscultation Cardiovascular: Normal S1, Normal S2 Abdomen: Bowel Sounds Present Extremities: No cyanosis Skin: No rashes Musculoskeletal: No Tenderness to Palpation of Joints or Extremities Neurological: - - consious, alert, CN 2-12 grossly intact, power 5/5 all 4 extremities, no sensory loss, no cerebellar signs, Reflexes + B/L B/S/T/K/A, gait deferred, NIHSS 0 at present. Vital Signs Temp Pulse Resp BP Pulse Ox 98 F 66 16 123/62 H 92 11/13/17 10:20 11/13/17 11:04 11/13/17 10:20 11/13/17 10:39 11/13/17 10:20 Oxygen Delivery Method Room Air Weight: 83.3 kg Body Mass Index (BMI) 32.5 Intake and Output for Last 24 Hours 11/11/17 11/12/17 11/13/17 23:59 23:59 23:59 Intake Total 1107 / 1107 Balance 1107 / 1107 Laboratory Tests Past 24 Hrs 11/13/17 11/13/17 03:44 03:44 Sodium 143 Potassium 3.7 Chloride 105 Carbon Dioxide 25.0 Anion Gap 13 BUN 23 H Creatinine 1.34 H Estim Creat Clear Calc 31.39 Est GFR (MDRD) Af Amer 50 L Est GFR (MDRD) Non-Af 41 L BUN/Creatinine Ratio 17.2 Glucose 98 Calcium TNP Troponin I < 0.015 Triglycerides 131 Cholesterol 174 LDL Cholesterol 95 VLDL Cholesterol 26 HDL Cholesterol 53 TSH 2.08 Assessment/Plan All Active Problems TIA (transient ischemic attack) (Acute) Facial droop (Acute) Headache (Acute) S/P total hip arthroplasty (Acute) Anemia (Ruled-out) The patient is a 72 year old CF with PMH HTN, HLD, Neuropathy, H/O TIA in April 2017, H/O DVT 10 yrs ago (in the setting of cellulitis per patient) admitted with episode of facial droop and KAUFMAN. Per patient she was not feeling well since yesterday (11/12/17) morning, had frontal KAUFMAN about 8/10 in intensity, without any photophobia, phonophobia, no vision loss, denies temporal tenderness or jaw claudication. Per patient then around 7 PM yesterday had right facial droop with visual blurring which lasted for about less than an hour , but denies any speech disturbances, focal motor weakness or sensory loss. Per patient she lives with and her family, has stress in life at present, does not use cane or walker to ambulate, complaints of intermittent falls and balance issues due to neuropathy, complaints of numbness in the toes, does not need assistance for her ADLs, and does drive. Per patient she denies any neck pain or radicular symptoms, but complaints of chronic low back pain with radicular symptoms. At present patient denies any KAUFMAN, visual disturbances, speech disturbances, focal motor weakness or sensory loss. ABCD2 score 3 on admission, CT head reported negative and CTA head/neck not reported to show any hemodynamically significant stenosis or occlusion. Found to have TRACE on admission. Per patient she was on Plavix at home. Impression Possible TIA R/O Lumbar Radiculopathy Peripheral Neuropathy Plan -Since ABCD2 score is around 3, can continue single AP, was on Plavix at home, can continue the same. Bleeding risk discussed in detail. Would recommend dual AP with ASA/Plavix if MRI brain shows stroke -On Pravastatin -CTA head/neck- no hemodynamically significant stenosis or occlusion -Await MRI brain w/o contrast -Check MRI L spine w/o contrast for low back pain with radicular symptoms, If neuroimaging is abnormal might need pain management or spine surgery consult. -Check ESR -Await TTE, Hba1c -LDL-95 -Stroke risk factors discussed and stroke education provided -Per patient she had recent EMG/NCS done, report not available but per patient it showed neuropathy. -PT/TO -GI/DVT prophylaxis -Fall precautions -Further medical management per primary team -Goal BP < 130/80 mmHg and goal Hba1c <7% -Neurology outpatient follow up in 2-3 weeks -Please call with questions if any -Thank you for allowing us to participate in patient's care and management I spent 60 minutes taking history, doing physical examination, reviewing medical records, coordinating care and counseling the patient. Code Visit Inpatient E&M: [id number] Init Hosp L3
[2017-11-13 15:50] LABS: Erythrocyte Sedimentation Rate 28 mm/hr (0-30)
[2017-11-13 16:07] LABS: Hemoglobin A1c 6.4 % (4.2-6.3)
[2017-11-13] MEDS: Acetaminophen 325 MG Tablet 650 MG PO (18:49)
[2017-11-13] MEDS: Pravastatin 40 MG Tablet PO (22:08)
[2017-11-14] VITALS (8 sets, daily range): BP systolic 123–142; BP diastolic 53–74; PULSE 57–72; RESP 15–18; TEMP 36.4–36.7; O2SAT 93–95; BMI 32.5
[2017-11-14] MEDS: 0.9% Normal Saline 1,000 ML 100 ML IV ×2 (00:24→10:39)
[2017-11-14] MEDS: Venlafaxine HCl 75 MG Tablet PO ×2 (06:03→14:28)
[2017-11-14] MEDS: Heparin Injection (Vial) 5,000 UNIT/ML VIAL 5000 UNIT SC ×2 (06:03→14:28)
[2017-11-14 06:46] LABS: Anion Gap 6 (5-15); BUN 16 mg/dL (7-18); Calcium,Total 8.2 mg/dL (8.5-10.1); Chloride 111 mmol/L (98-107); Creatinine, Serum 1.07 mg/dL (0.55-1.02); EST Glomerular Filtration Rate 54 mL/min (>60); Est Glom Filt Rate - Afr Amer 65 mL/min (>60); Estimated Creatinine Clearance 39.31 ml/min; Glucose 86 mg/dL (74-106); Potassium 4.3 mmol/L (3.5-5.1); Sodium Level 144 mmol/L (136-145)
[2017-11-14 06:47] LABS: Absolute Lymphocyte Count 1.66 X10^3/ul (0.83-4.51); Absolute Neutrophil Count 2.3 X10^3/uL (2.0-7.7); Basophil# 0.01 X10^3/uL; Basophil% 0.2 % (0-1); Eosinophil# 0.13 X10^3/uL; Eosinophils% 2.9 % (0-5); Hematocrit 38.1 % (37-47); Lymphocyte # 1.66 X10^3/ul (4.0); Lymphocyte % 37.6 % (19-41); Mean Corp Hgb Conc 31.5 g/gl (32-36); Mean Corpuscular Hgb 30.6 pg (27.0-32.0); Mean Corpuscular Volume 97.2 fL (81-99); Mean Platelet Vol. 9.9 fl (6.2-12.0); Monocyte# 0.32 X10^3/uL; Monocyte% 7.2 % (0-10); Neutrophil % 52.1 % (47-70); Platelet Count 176 K/mm3 (150-450); RBC Distribution Width CV 14.3 % (11.6-14.6); RBC Distribution Width SD 50.7 fl (35.1-43.9); Red Blood Count 3.92 M/mm3 (4.2-5.4); White Blood Count 4.4 K/mm3 (4.4-11.0)
[2017-11-14 07:02] LABS: Differential Indicated SCAN CRITERIA MET; POSITIVE COUNT NO; POSITIVE DIFFERENTIAL NO; POSITIVE MORPHOLOGY YES
[2017-11-14 07:13] LABS: Differential Comment SCANNED
--- NOTE | 2017-11-14 08:00 | MRI_ITS ---
STUDY: MRI BRAIN WITHOUT CONTRAST REASON FOR EXAM: Female, 72 years old. FACIAL DROOP -- rt facial droop, blurred vision, hickman, numbness feet and legs. TECHNIQUE: Standardized multiplanar fat and water weighted pulse sequences were obtained. COMPARISON: None. FINDINGS: There is mild cerebral atrophy with widening of the extra-axial spaces and ventricular dilatation. There are a limited number of small white matter hyperintensities, distributed throughout the deep white matter tracts of the cerebral hemispheres, consistent with mild chronic white matter ischemic changes. Normal bilateral basal ganglia. Normal thalami. There is no extra-axial fluid accumulation. Normal flow voids within the major intracranial circulation suggesting patency by spin echo criteria. Normal sella turcica, pituitary gland, infundibular stalk, optic chiasm and hypothalamus. Normal tectal plate and pineal gland. Normal midbrain, collin and medulla. There is mild prominence of the vermian folia, consistent with atrophy of the vermis. The cerebellar hemispheres are normal. Normal basal cisterns. Normal bilateral temporal bones. Normal bilateral internal auditory canals. MRI/Brain without Contrast IMPRESSION: No acute intracranial abnormality Electronically Signed: Aziza Bhatti MD at 16:06 EDT Tel , Service support ,
--- NOTE | 2017-11-14 08:00 | MRI_ITS ---
STUDY: MRI LUMBAR SPINE WITHOUT CONTRAST REASON FOR EXAM: Female, 72 years old. BACK PAIN -- numbness bilat feet and legs. TECHNIQUE: Standardized fat and water weighted pulse sequences were obtained in the sagittal and axial planes. COMPARISON: None FINDINGS: T12-L1: There is minimal disc space narrowing and endplate spondylosis. There is no significant disc herniation, spinal canal or foramina stenosis. Normal lumbar lordosis. There is no substantial scoliosis. Normal conus medullaris that terminates at the T12 L1-2: There is minimal disc space narrowing and endplate spondylosis. There is no significant disc herniation, spinal canal or foramina stenosis. L2-3: There is mild disc space narrowing and endplate spondylosis. There is a mild disc bulge and facet hypertrophy without significant central canal stenosis. There is minimal bilateral foraminal stenosis. L3-4: There is mild disc space narrowing and endplate spondylosis. There is a mild disc bulge and facet hypertrophy without significant central canal stenosis. There is minimal bilateral foraminal stenosis. There is moderate bilateral lateral recess narrowing. L4-5: There is mild disc space narrowing and endplate spondylosis. There is mild disc bulge and facet osteoarthropathy with mild central canal stenosis there is minimal right and mild left foraminal stenosis. There is moderate bilateral lateral recess narrowing. L5-S1: There is minimal disc space narrowing and endplate sclerosis. There is a minimal disc bulge and facet arthropathy greater on the right without significant central canal or foraminal stenosis. Normal visualized sacral ala. MRI/Spine Lumbar (Routine) IMPRESSION: 1. Multilevel degenerative changes above with L3/4 and L4/5 moderate bilateral foraminal narrowing, clinically correlate for descending L4 and L5 nerve root radiculopathy. Electronically Signed: Giorgi Steven DO at 21:02 EDT , Service support ,
[2017-11-14] MEDS: Iron Polysaccharide Complex 150 MG CAPSULE PO (09:30)
[2017-11-14] MEDS: Losartan Potassium 100 MG Tablet PO (09:30)
[2017-11-14] MEDS: Clopidogrel Bisulfate 75 MG Tablet PO (09:30)
[2017-11-14] MEDS: HYDROCHLOROTHIAZIDE 12.5 MG CAPSULE PO (09:30)
[2017-11-14] MEDS: Metoprolol(XL)Succ 100 MG Tablet PO (09:30)
[2017-11-14] MEDS: Pantoprazole Sodium 20 MG Tablet PO (09:30)
[2017-11-14] MEDS: amLODIPine 5 MG Tablet PO (09:30)
--- NOTE | 2017-11-14 10:56 | PCM.PN.NEU ---
Patient Problems: Active and Suspected Problems TIA (transient ischemic attack) (Acute) Facial droop (Acute) Headache (Acute) Subjective: Patient reports she feels normal now although she does have abdominal pain and diarrhea. She did not have this prior and she attributes this to her Senokot which has been discontinued now. Her facial droop has resolved, she no longer has a headache. She does not have a history of headaches. - Physical Exam General: Alert, Oriented x3, Cooperative Neurological: Cranial nerves II-XII grossly intact Psych/Mental Status: Normal Affect, Appropriate Vital Signs Temp Pulse Resp BP Pulse Ox 36.6 C 72 18 126/55 H 95 11/14/17 06:02 11/14/17 09:30 11/14/17 06:02 11/14/17 06:02 11/14/17 06:02 Oxygen Delivery Method Room Air Weight: 83.3 kg Body Mass Index (BMI) 32.5 Intake and Output for Last 24 Hours 11/12/17 11/13/17 11/14/17 23:59 23:59 23:59 Intake Total 1880 / 1880 1049 / 1049 Balance 1880 / 1880 1049 / 1049 Laboratory Tests Past 24 Hrs 11/13/17 11/13/17 11/14/17 15:39 15:39 06:10 WBC 4.4 RBC 3.92 L Hgb 12.0 Hct 38.1 MCV 97.2 MCH 30.6 MCHC 31.5 L RDW 14.3 RDW Differential 50.7 H Plt Count 176 MPV 9.9 Immature Gran % (Auto) 0.000 Neut % (Auto) 52.1 Lymph % (Auto) 37.6 Sunflower % (Auto) 7.2 Eos % (Auto) 2.9 Baso % (Auto) 0.2 Absolute Neuts (auto) 2.3 Absolute Lymphs (auto) 1.66 Total Counted Not Reportable Differential Comment SCANNED ESR 28 Sodium Potassium Chloride Carbon Dioxide Anion Gap BUN Creatinine Estim Creat Clear Calc Est GFR (MDRD) Af Amer Est GFR (MDRD) Non-Af BUN/Creatinine Ratio Glucose Hemoglobin A1c 6.4 H Calcium 11/14/17 06:10 WBC RBC Hgb Hct MCV MCH MCHC RDW RDW Differential Plt Count MPV Immature Gran % (Auto) Neut % (Auto) Lymph % (Auto) Sunflower % (Auto) Eos % (Auto) Baso % (Auto) Absolute Neuts (auto) Absolute Lymphs (auto) Total Counted Differential Comment ESR Sodium 144 Potassium 4.3 Chloride 111 H Carbon Dioxide 27.0 Anion Gap 6 BUN 16 Creatinine 1.07 H Estim Creat Clear Calc 39.31 Est GFR (MDRD) Af Amer 65 Est GFR (MDRD) Non-Af 54 L BUN/Creatinine Ratio 15.0 Glucose 86 Hemoglobin A1c Calcium 8.2 L Medical Necessity - Tobacco Use Smoking Status: Former smoker Assessment/Plan All Active Problems TIA (transient ischemic attack) (Acute) Facial droop (Acute) Headache (Acute) S/P total hip arthroplasty (Acute) Anemia (Ruled-out) TIA versus complex migraine: Symptoms are now resolved. Continues on Plavix. Await MRI if negative from neurology standpoint can be discharged.
--- NOTE | 2017-11-14 13:30 | PCM.PN.HOSP ---
Patient Problems: Active and Suspected Problems TIA (transient ischemic attack) (Acute) Facial droop (Acute) Headache (Acute) Subjective: Patient seen and examined. She complains of having multiple episodes of diarrhea overnight. She states the stool was very black. She denies any fever or chills, any cough or chest pain, any shortness of breath, any abdominal pain, any diarrhea vomiting. Review of systems otherwise negative. Vitals/I&O's: Vital Signs Temp Pulse Resp BP Pulse Ox 98.0 F 61 16 142/74 H 93 11/14/17 09:30 11/14/17 11:17 11/14/17 09:30 11/14/17 09:30 11/14/17 09:30 Oxygen Delivery Method Room Air Weight: 183 lb 10.321 oz Body Mass Index (BMI) 32.5 Intake and Output for Last 24 Hours 11/12/17 11/13/17 11/14/17 23:59 23:59 23:59 Intake Total 1879 Balance 1879 General: Alert, Oriented x3, Cooperative, No apparent distress HEENT: Atraumatic, PERRLA, EOMI, Normocephalic Oral: Moist Mucosa Neck: Supple, No JVD, Negative Carotid Bruits Lungs: Clear to auscultation, Normal air movement, No rhonchi, No wheeze, No rales Cardiovascular: Regular rate, Regular Rhythm, Normal S1, Normal S2, No murmurs Abdomen: Bowel Sounds Present, Soft, Non Tender, Non-Distended, No Hepato-splenomegaly Extremities: No clubbing, No cyanosis, No edema, Capillary Refill Less than 3 Seconds Skin: No rashes, No breakdown Musculoskeletal: No Tenderness to Palpation of Joints or Extremities Lymphatic: No Cervical, Supraclavicular, or Inguinal Adenopathy Neurological: Cranial nerves II-XII grossly intact Psych/Mental Status: Normal Affect, Appropriate, Alert and oriented to time, place, person, mood and affect Laboratory Results 11/13/17 15:39: ESR 28 11/13/17 15:39: Hemoglobin A1c 6.4 H 11/14/17 06:10: WBC 4.4, RBC 3.92 L, Hgb 12.0, Hct 38.1, MCV 97.2, MCH 30.6, MCHC 31.5 L, RDW 14.3, RDW Differential 50.7 H, Plt Count 176, MPV 9.9, Immature Gran % (Auto) 0.000, Neut % (Auto) 52.1, Lymph % (Auto) 37.6, [place] % (Auto) 7.2, Eos % (Auto) 2.9, Baso % (Auto) 0.2, Absolute Neuts (auto) 2.3, Absolute Lymphs (auto) 1.66, Total Counted Not Reportable, Differential Comment SCANNED 11/14/17 06:10: Sodium 144, Potassium 4.3, Chloride 111 H, Carbon Dioxide 27.0, Anion Gap 6, BUN 16, Creatinine 1.07 H, Estim Creat Clear Calc 39.31, Est GFR (MDRD) Af Amer 65, Est GFR (MDRD) Non-Af 54 L, BUN/Creatinine Ratio 15.0, Glucose 86, Calcium 8.2 L Current Medications Acetaminophen (Tylenol) 650 mg PO Q4H PRN PRN PRN Reason: Mild Pain (0-3/10)/Headache Last Admin: 11/13/17 18:49 Dose: 650 mg Amlodipine Besylate (Norvasc) 5 mg PO DAILY [facility] Last Admin: 11/14/17 09:30 Dose: 5 mg Cholecalciferol (Vitamin D) 1,000 unit PO DAILY [facility] Last Admin: 11/14/17 09:30 Dose: 1,000 unit Clopidogrel Bisulfate (Plavix) 75 mg PO DAILY [facility] Last Admin: 11/14/17 09:30 Dose: 75 mg Heparin Sodium (Porcine) (Heparin Na) 5,000 unit SC Q8 [facility] Last Admin: 11/14/17 06:03 Dose: 5,000 units Hydrochlorothiazide (Hydrochlorothiazide) 12.5 mg PO DAILY [facility] Last Admin: 11/14/17 09:30 Dose: 12.5 mg Sodium Chloride () 1,000 mls @ 100 mls/hr IV .Q10H [facility] Last Admin: 11/14/17 10:39 Dose: 100 mls/hr Losartan Potassium (Cozaar) 100 mg PO DAILY [facility] Last Admin: 11/14/17 09:30 Dose: 100 mg Magnesium Hydroxide (Milk Of Magnesia) 30 ml PO DAILY PRN PRN Reason: Constipation Metoprolol Succinate (Toprol Xl (Beta Mikel)) 100 mg PO DAILY [facility] Last Admin: 11/14/17 09:30 Dose: 100 mg Nitroglycerin (Nitrostat) 0.4 mg SUBLINGUAL Q5M PRN PRN Reason: Chest Pain Ondansetron HCl (Zofran) 4 mg IV Q6H PRN PRN PRN Reason: NAUSEA Last Admin: 11/13/17 17:04 Dose: 4 mg Pantoprazole Sodium (Protonix) 20 mg PO DAILY [facility] Last Admin: 11/14/17 09:30 Dose: 20 mg Polysaccharide Iron Complex (Ferrex 150) 150 mg PO DAILYCM [facility] Last Admin: 11/14/17 09:30 Dose: 150 mg Pravastatin Sodium (Pravachol) 40 mg PO QHS [facility] Last Admin: 11/13/17 22:08 Dose: 40 mg Senna/Docusate Sodium (Senokot-S, [place]-Colace) 2 tablet PO BID [facility] Last Admin: 11/14/17 09:31 Dose: Not Given Sodium Chloride () 5 - 30 ml IV UD PRN PRN Reason: SALINE FLUSH Venlafaxine HCl (Effexor) 75 mg PO TID [facility] Last Admin: 11/14/17 06:03 Dose: 75 mg Medical Necessity - Tobacco Use Smoking Status: Former smoker Assessment/Plan All Active Problems TIA (transient ischemic attack) (Acute) Facial droop (Acute) Headache (Acute) S/P total hip arthroplasty (Acute) Anemia (Ruled-out) 2-year-old female with a history of TIA and hypertension as well as osteoarthritis reporting that a few hours history of right-sided mouth droop which have resolved within one and half hours. 1. TIA Resolved. This was a second TIA in 6 months. Is no complaints. MRI and MRA as well as echo are pending. On aspirin and statin. Will continue. Neurology on board. Think this may be also be due to complex migraine. fall precautions. 2. Diarrhea: says she had multiple episodes of diarrhea overnight, with the stool being very black. Looks very stable though, and hasnt had any diarrhea this morning. WIll check C Diff and FOBT. 2. HTN: controlled. on HCTZ, losartan, amlodipine and lisinopril 3. Osteoarthritis of hip: stable DVT prophylaxis; heparin Disposition: DC home today if MRI is negative This note was generated with Freshplum[employer] software. It may contain incorrect words, spelling, and punctuation that were not noted in checking the note before signing. Code Visit OBSV E&M: 88251 Subsequent observation care L2
--- NOTE | 2017-11-14 13:38 | PN_ITS ---
Patient Problems: Active and Suspected Problems TIA (transient ischemic attack) (Acute) Facial droop (Acute) Headache (Acute) Subjective: Patient seen and examined. She complains of having multiple episodes of diarrhea overnight. She states the stool was very black. She denies any fever or chills, any cough or chest pain, any shortness of breath, any abdominal pain , any diarrhea vomiting. Review of systems otherwise negative. Vitals/I&O's: Vital Signs Temp Pulse Resp BP Pulse Ox 98.0 F 61 16 142/74 H 93 11/14/17 09:30 11/14/17 11:17 11/14/17 09:30 11/14/17 09:30 11/14/17 09:30 Oxygen Delivery Method Room Air Weight: 183 lb 10.321 oz Body Mass Index (BMI) 32.5 Intake and Output for Last 24 Hours 11/12/17 11/13/17 11/14/17 23:59 23:59 23:59 Intake Total 1879 Balance 1879 General: Alert, Oriented x3, Cooperative, No apparent distress HEENT: Atraumatic, PERRLA, EOMI, Normocephalic Oral: Moist Mucosa Neck: Supple, No JVD, Negative Carotid Bruits Lungs: Clear to auscultation, Normal air movement, No rhonchi, No wheeze, No rales Cardiovascular: Regular rate, Regular Rhythm, Normal S1, Normal S2, No murmurs Abdomen: Bowel Sounds Present, Soft, Non Tender, Non-Distended, No Hepato- splenomegaly Extremities: No clubbing, No cyanosis, No edema, Capillary Refill Less than 3 Seconds Skin: No rashes, No breakdown Musculoskeletal: No Tenderness to Palpation of Joints or Extremities Lymphatic: No Cervical, Supraclavicular, or Inguinal Adenopathy Neurological: Cranial nerves II-XII grossly intact Psych/Mental Status: Normal Affect, Appropriate, Alert and oriented to time, place, person, mood and affect Laboratory Results 11/13/17 15:39: ESR 28 11/13/17 15:39: Hemoglobin A1c 6.4 H 11/14/17 06:10: WBC 4.4, RBC 3.92 L, Hgb 12.0, Hct 38.1, MCV 97.2, MCH 30.6, MCHC 31.5 L, RDW 14.3, RDW Differential 50.7 H, Plt Count 176, MPV 9.9, Immature Gran % (Auto) 0.000, Neut % (Auto) 52.1, Lymph % (Auto) 37.6, [place] % ( Auto) 7.2, Eos % (Auto) 2.9, Baso % (Auto) 0.2, Absolute Neuts (auto) 2.3, Absolute Lymphs (auto) 1.66, Total Counted Not Reportable, Differential Comment SCANNED 11/14/17 06:10: Sodium 144, Potassium 4.3, Chloride 111 H, Carbon Dioxide 27.0, Anion Gap 6, BUN 16, Creatinine 1.07 H, Estim Creat Clear Calc 39.31, Est GFR ( MDRD) Af Amer 65, Est GFR (MDRD) Non-Af 54 L, BUN/Creatinine Ratio 15.0, Glucose 86, Calcium 8.2 L Current Medications Acetaminophen (Tylenol) 650 mg PO Q4H PRN PRN PRN Reason: Mild Pain (0-3/10)/Headache Last Admin: 11/13/17 18:49 Dose: 650 mg Amlodipine Besylate (Norvasc) 5 mg PO DAILY [facility] Last Admin: 11/14/17 09:30 Dose: 5 mg Cholecalciferol (Vitamin D) 1,000 unit PO DAILY [facility] Last Admin: 11/14/17 09:30 Dose: 1,000 unit Clopidogrel Bisulfate (Plavix) 75 mg PO DAILY [facility] Last Admin: 11/14/17 09:30 Dose: 75 mg Heparin Sodium (Porcine) (Heparin Na) 5,000 unit SC Q8 [facility] Last Admin: 11/14/17 06:03 Dose: 5,000 units Hydrochlorothiazide (Hydrochlorothiazide) 12.5 mg PO DAILY [facility] Last Admin: 11/14/17 09:30 Dose: 12.5 mg Sodium Chloride () 1,000 mls @ 100 mls/hr IV .Q10H [facility] Last Admin: 11/14/17 10:39 Dose: 100 mls/hr Losartan Potassium (Cozaar) 100 mg PO DAILY [facility] Last Admin: 11/14/17 09:30 Dose: 100 mg Magnesium Hydroxide (Milk Of Magnesia) 30 ml PO DAILY PRN PRN Reason: Constipation Metoprolol Succinate (Toprol Xl (Beta Mikel)) 100 mg PO DAILY [facility] Last Admin: 11/14/17 09:30 Dose: 100 mg Nitroglycerin (Nitrostat) 0.4 mg SUBLINGUAL Q5M PRN PRN Reason: Chest Pain Ondansetron HCl (Zofran) 4 mg IV Q6H PRN PRN PRN Reason: NAUSEA Last Admin: 11/13/17 17:04 Dose: 4 mg Pantoprazole Sodium (Protonix) 20 mg PO DAILY [facility] Last Admin: 11/14/17 09:30 Dose: 20 mg Polysaccharide Iron Complex (Ferrex 150) 150 mg PO DAILYCM [facility] Last Admin: 11/14/17 09:30 Dose: 150 mg Pravastatin Sodium (Pravachol) 40 mg PO QHS [facility] Last Admin: 11/13/17 22:08 Dose: 40 mg Senna/Docusate Sodium (Senokot-S, Mary[place]-Colace) 2 tablet PO BID [facility] Last Admin: 11/14/17 09:31 Dose: Not Given Sodium Chloride () 5 - 30 ml IV UD PRN PRN Reason: SALINE FLUSH Venlafaxine HCl (Effexor) 75 mg PO TID [facility] Last Admin: 11/14/17 06:03 Dose: 75 mg Medical Necessity - Tobacco Use Smoking Status: Former smoker Assessment/Plan All Active Problems TIA (transient ischemic attack) (Acute) Facial droop (Acute) Headache (Acute) S/P total hip arthroplasty (Acute) Anemia (Ruled-out) 2-year-old female with a history of TIA and hypertension as well as osteoarthritis reporting that a few hours history of right-sided mouth droop which have resolved within one and half hours. 1. TIA * Resolved. This was a second TIA in 6 months. * Is no complaints. MRI and MRA as well as echo are pending. * On aspirin and statin. Will continue. * Neurology on board. Think this may be also be due to complex migraine. * fall precautions. * * 2. Diarrhea: * says she had multiple episodes of diarrhea overnight, with the stool being very black. Looks very stable though, and hasnt had any diarrhea this morning. WIll check C Diff and FOBT. 2. HTN: controlled. on HCTZ, losartan, amlodipine and lisinopril 3. Osteoarthritis of hip: stable DVT prophylaxis; heparin Disposition: DC home today if MRI is negative This note was generated with S[employer]obe dictation software. It may contain incorrect words, spelling, and punctuation that were not noted in checking the note before signing. Code Visit OBSV E&M: 15866 Subsequent observation care L2
--- NOTE | 2017-11-14 14:43 | CASEMGMT ---
See RN CM Assessment Link. DC Plan: home Pt lives with spouse, daughter and son-in-law. Has cane and WC, family drives. No needs identified @ this time. Renay JAVEDN RN ACM
--- NOTE | 2017-11-14 16:45 | DCINST_ITS ---
- Discharge Diagnoses Current Active Problems: Current Active and Chronic Problems TIA (transient ischemic attack) (Acute) Facial droop (Acute) Headache (Acute) You will use the following diet at home:: Cardiac Your food should be the consistency of: Regular Your liquids should be the consistency of: Regular/Thin Discharge Activity: Return to Normal Activity May resume sexual activity in: No Restrictions Weight Bearing Status: Weight bearing as tolerated Call your doctor if you observe: Fainting spells Additional Instructions: please follow up with PCP for echo results Allergies/Adverse Reactions: Allergies Penicillins Adverse Reaction (Verified 11/12/17 22:31) Upset Stomach Medications to take at Discharge Cholecalciferol (VIT D3) [Vitamin D3] 1,000 unit PO DAILY 03/13/15 Hydrochlorothiazide 12.5 mg PO DAILY 03/13/15 Losartan Potassium [Cozaar] 100 mg PO DAILY 03/13/15 Metoprolol(XL)Succ [Toprol Xl (Beta Mikel)] 100 mg PO DAILY 03/13/15 Nitroglycerin [Nitrostat] 0.4 mg SUBLINGUAL Q5M PRN 03/13/15 Omeprazole [Prilosec] 20 mg PO DAILY 03/13/15 Pravastatin [Pravachol] 40 mg PO QHS 03/13/15 Acetaminophen [Tylenol Tablet] 650 mg PO Q4H PRN PRN #0 tablet 04/08/15 Oxycodone HCl/Acetaminophen [Percocet 5-325] 1 - 2 tablet PO Q4H PRN PRN #30 tablet 04/08/15 Senna/Docusate Sodium [Senokot-S] 2 tablet PO BID #0 tablet 04/08/15 Baclofen 10 mg PO QHS 11/13/17 Famotidine 40 mg PO BID 11/13/17 Gabapentin [Neurontin] 300 mg PO QHS 11/13/17 Plavix 75 mg PO DAILY 11/13/17 Primary Care Physician: Reynold Samayoa Chi, MD [Primary Care Provider] - Please follow up with your Primary Care Physician in: one week Test Results: Test results from this visit will be discussed in further detail at your follow- up appointment, if applicable. Please Follow Up With: Raúl Toledo MD When: two weeks Proposed Discharge Date: 11/14/17
--- NOTE | 2017-11-14 16:46 | PCM.DC.SUM ---
Discharge Date and Diagnosis - Problem List Patient Problems: Active and Suspected Problems TIA (transient ischemic attack) (Acute) Facial droop (Acute) Headache (Acute) Date of Admission: 11/12/17 Date of Discharge: 11/14/17 - Primary Discharge Diagnosis Active and Suspected Problems TIA (transient ischemic attack) (Acute) Facial droop (Acute) Headache (Acute) - Secondary Discharge Diagnosis Chronic Problems Hypertension (Chronic) Osteoarthritis (Chronic) Obesity (BMI 30.0-34.9) (Chronic) Hospital Course and Treatment Imaging Results: 11/14/17 08:00 Brain without Contrast [MRI] Routine Spine Lumbar (Routine) [MRI] Routine Diagnostic Data Chest X-Ray 11/12/17 22:48 IMPRESSION: There is NO acute cardiopulmonary abnormality. Electronically Signed: Mahesh Teague MD at 0:21 EDT , Service support , Head CTA 11/12/17 22:48 IMPRESSION: Normal [place] without a demonstrated aneurysm or hemodynamically significant stenosis. Electronically Signed: Mahesh Teague MD at 1:04 EDT , Service support , Neck CTA 11/12/17 22:48 IMPRESSION: There is calcified plaque at the carotid bulbs without evidence of stenosis. There is tortuous elongation of the cervical internal carotid arteries laterally, greater on the RIGHT. There is NO dissection. The vertebral arteries are patent and normal in caliber. Electronically Signed: Mahesh Teague MD at 0:32 EDT , Service support , Brain MRI 11/14/17 08:00 IMPRESSION: No acute intracranial abnormality Electronically Signed: Aziza Bhatti MD at 16:06 EDT Tel , Service support , Laboratory Tests 11/12/17 11/12/17 11/12/17 22:55 22:55 22:55 WBC 6.5 RBC 4.40 Hgb 13.5 Hct 42.2 MCV 95.9 MCH 30.7 MCHC 32.0 RDW 14.1 RDW Differential 50.0 H Plt Count 215 MPV 9.5 Immature Gran % (Auto) 0.000 Neut % (Auto) 53.6 Lymph % (Auto) 34.3 [place] % (Auto) 9.1 Eos % (Auto) 2.8 Baso % (Auto) 0.2 Absolute Neuts (auto) 3.5 Absolute Lymphs (auto) 2.23 Total Counted Not Reportable Differential Comment ESR PT 12.5 INR 0.9 APTT 27.5 Sodium 140 Potassium 3.5 Chloride 101 Carbon Dioxide 32.0 Anion Gap 7 BUN 26 H Creatinine 1.58 H Estim Creat Clear Calc 26.62 Est GFR (MDRD) Af Amer 41 L Est GFR (MDRD) Non-Af 34 L BUN/Creatinine Ratio 16.5 Glucose 123 H Hemoglobin A1c Calcium 8.7 Troponin I < 0.015 Triglycerides Cholesterol LDL Cholesterol VLDL Cholesterol HDL Cholesterol TSH POC Glucose 11/13/17 11/13/17 11/13/17 00:18 03:44 03:44 WBC RBC Hgb Hct MCV MCH MCHC RDW RDW Differential Plt Count MPV Immature Gran % (Auto) Neut % (Auto) Lymph % (Auto) [place] % (Auto) Eos % (Auto) Baso % (Auto) Absolute Neuts (auto) Absolute Lymphs (auto) Total Counted Differential Comment ESR PT INR APTT Sodium 143 Potassium 3.7 Chloride 105 Carbon Dioxide 25.0 Anion Gap 13 BUN 23 H Creatinine 1.34 H Estim Creat Clear Calc 31.39 Est GFR (MDRD) Af Amer 50 L Est GFR (MDRD) Non-Af 41 L BUN/Creatinine Ratio 17.2 Glucose 98 Hemoglobin A1c Calcium TNP Troponin I < 0.015 Triglycerides 131 Cholesterol 174 LDL Cholesterol 95 VLDL Cholesterol 26 HDL Cholesterol 53 TSH 2.08 POC Glucose 109 11/13/17 11/13/17 11/14/17 15:39 15:39 06:10 WBC 4.4 RBC 3.92 L Hgb 12.0 Hct 38.1 MCV 97.2 MCH 30.6 MCHC 31.5 L RDW 14.3 RDW Differential 50.7 H Plt Count 176 MPV 9.9 Immature Gran % (Auto) 0.000 Neut % (Auto) 52.1 Lymph % (Auto) 37.6 [place] % (Auto) 7.2 Eos % (Auto) 2.9 Baso % (Auto) 0.2 Absolute Neuts (auto) 2.3 Absolute Lymphs (auto) 1.66 Total Counted Not Reportable Differential Comment SCANNED ESR 28 PT INR APTT Sodium Potassium Chloride Carbon Dioxide Anion Gap BUN Creatinine Estim Creat Clear Calc Est GFR (MDRD) Af Amer Est GFR (MDRD) Non-Af BUN/Creatinine Ratio Glucose Hemoglobin A1c 6.4 H Calcium Troponin I Triglycerides Cholesterol LDL Cholesterol VLDL Cholesterol HDL Cholesterol TSH POC Glucose 11/14/17 06:10 WBC RBC Hgb Hct MCV MCH MCHC RDW RDW Differential Plt Count MPV Immature Gran % (Auto) Neut % (Auto) Lymph % (Auto) [place] % (Auto) Eos % (Auto) Baso % (Auto) Absolute Neuts (auto) Absolute Lymphs (auto) Total Counted Differential Comment ESR PT INR APTT Sodium 144 Potassium 4.3 Chloride 111 H Carbon Dioxide 27.0 Anion Gap 6 BUN 16 Creatinine 1.07 H Estim Creat Clear Calc 39.31 Est GFR (MDRD) Af Amer 65 Est GFR (MDRD) Non-Af 54 L BUN/Creatinine Ratio 15.0 Glucose 86 Hemoglobin A1c Calcium 8.2 L Troponin I Triglycerides Cholesterol LDL Cholesterol VLDL Cholesterol HDL Cholesterol TSH POC Glucose Operations: None Procedures: 2-D Echocardiogram Summary of Care Provided: The patient is a 72 year old F with hypertension, history of TIA and osteoarthritis. She was admitted on 11/23/2017 with a complaint of right facial droop which started around 7 PM on 11/12/2017. It was sudden and resolved by 9:30 PM when she was brought to the hospital that day. She had no speech or focal weakness and a complaint of bilateral blurred vision which had also improved. She had also complained of a similar presentation about [address] of the head was negative for acute any acute event and CT of the neck was also negative. Patient was admitted and managed for TIA. Neurology was also consulted. Patient had an MRI of the brain on 11/14/2017 which was negative for any stroke. Patient had an echo on 11/14/2017 reading of which was pending at time she was discharged. She is follow-up with a PCP for the results as patient was to be discharged home today. Since MRI was negative, she is to continue on her home Plavix. She is follow-up with her PCP and neurologist. [] Discharge Diet: 2000 mg Sodium Diet Discharge Activity: Return to Normal Activity May resume sexual activity in: No Restrictions Weight Bearing Status: Weight bearing as tolerated Call your doctor if you observe: Fainting spells Home Medications: Medications to take at Discharge Cholecalciferol (VIT D3) [Vitamin D3] 1,000 unit PO DAILY 03/13/15 Hydrochlorothiazide 12.5 mg PO DAILY 03/13/15 Losartan Potassium [Cozaar] 100 mg PO DAILY 03/13/15 Metoprolol(XL)Succ [Toprol Xl (Beta Mikel)] 100 mg PO DAILY 03/13/15 Nitroglycerin [Nitrostat] 0.4 mg SUBLINGUAL Q5M PRN 03/13/15 Omeprazole [Prilosec] 20 mg PO DAILY 03/13/15 Pravastatin [Pravachol] 40 mg PO QHS 03/13/15 Acetaminophen [Tylenol Tablet] 650 mg PO Q4H PRN PRN #0 tablet 04/08/15 Oxycodone HCl/Acetaminophen [Percocet 5-325] 1 - 2 tablet PO Q4H PRN PRN #30 tablet 04/08/15 Senna/Docusate Sodium [Senokot-S] 2 tablet PO BID #0 tablet 04/08/15 Baclofen 10 mg PO QHS 11/13/17 Famotidine 40 mg PO BID 11/13/17 Gabapentin [Neurontin] 300 mg PO QHS 11/13/17 Plavix 75 mg PO DAILY 11/13/17 Primary Care Physician: Reynold Samayoa Chi, MD [Primary Care Provider] - Please follow up with your Primary Care Physician in: one week Please Follow Up With: Raúl Toledo MD When: two weeks Disposition: Home Minutes spent on discharge:: 35 Patient Condition:: Good Medical Necessity - Tobacco Use Smoking Status: Former smoker Meaningful Use Info Meaningful Use Diagnoses (Choose all that apply): None applicable Code Visit Inpatient E&M: 31448 Disch Hosp
--- NOTE | 2017-11-14 16:50 | DS.PCM_ITS ---
Discharge Date and Diagnosis - Problem List Patient Problems: Active and Suspected Problems TIA (transient ischemic attack) (Acute) Facial droop (Acute) Headache (Acute) Date of Admission: 11/12/17 Date of Discharge: 11/14/17 - Primary Discharge Diagnosis Active and Suspected Problems TIA (transient ischemic attack) (Acute) Facial droop (Acute) Headache (Acute) - Secondary Discharge Diagnosis Chronic Problems Hypertension (Chronic) Osteoarthritis (Chronic) Obesity (BMI 30.0-34.9) (Chronic) Hospital Course and Treatment Imaging Results: 11/14/17 08:00 Brain without Contrast [MRI] Routine Spine Lumbar (Routine) [MRI] Routine Diagnostic Data Chest X-Ray 11/12/17 22:48 IMPRESSION: There is NO acute cardiopulmonary abnormality. Electronically Signed: Mahesh eTague MD at 0:21 EDT , Service support , Head CTA 11/12/17 22:48 IMPRESSION: Normal [place] without a demonstrated aneurysm or hemodynamically significant stenosis. Electronically Signed: Mahesh Teague MD at 1:04 EDT , Service support , Neck CTA 11/12/17 22:48 IMPRESSION: There is calcified plaque at the carotid bulbs without evidence of stenosis. There is tortuous elongation of the cervical internal carotid arteries laterally, greater on the RIGHT. There is NO dissection. The vertebral arteries are patent and normal in caliber. Electronically Signed: Mahesh Teague MD at 0:32 EDT , Service support , Brain MRI 11/14/17 08:00 IMPRESSION: No acute intracranial abnormality Electronically Signed: Aziza Bhatti MD at 16:06 EDT Tel , Service support , Laboratory Tests 11/12/17 11/12/17 11/12/17 22:55 22:55 22:55 WBC 6.5 RBC 4.40 Hgb 13.5 Hct 42.2 MCV 95.9 MCH 30.7 MCHC 32.0 RDW 14.1 RDW Differential 50.0 H Plt Count 215 MPV 9.5 Immature Gran % (Auto) 0.000 Neut % (Auto) 53.6 Lymph % (Auto) 34.3 [place] % (Auto) 9.1 Eos % (Auto) 2.8 Baso % (Auto) 0.2 Absolute Neuts (auto) 3.5 Absolute Lymphs (auto) 2.23 Total Counted Not Reportable Differential Comment ESR PT 12.5 INR 0.9 APTT 27.5 Sodium 140 Potassium 3.5 Chloride 101 Carbon Dioxide 32.0 Anion Gap 7 BUN 26 H Creatinine 1.58 H Estim Creat Clear Calc 26.62 Est GFR (MDRD) Af Amer 41 L Est GFR (MDRD) Non-Af 34 L BUN/Creatinine Ratio 16.5 Glucose 123 H Hemoglobin A1c Calcium 8.7 Troponin I < 0.015 Triglycerides Cholesterol LDL Cholesterol VLDL Cholesterol HDL Cholesterol TSH POC Glucose 11/13/17 11/13/17 11/13/17 00:18 03:44 03:44 WBC RBC Hgb Hct MCV MCH MCHC RDW RDW Differential Plt Count MPV Immature Gran % (Auto) Neut % (Auto) Lymph % (Auto) [place] % (Auto) Eos % (Auto) Baso % (Auto) Absolute Neuts (auto) Absolute Lymphs (auto) Total Counted Differential Comment ESR PT INR APTT Sodium 143 Potassium 3.7 Chloride 105 Carbon Dioxide 25.0 Anion Gap 13 BUN 23 H Creatinine 1.34 H Estim Creat Clear Calc 31.39 Est GFR (MDRD) Af Amer 50 L Est GFR (MDRD) Non-Af 41 L BUN/Creatinine Ratio 17.2 Glucose 98 Hemoglobin A1c Calcium TNP Troponin I < 0.015 Triglycerides 131 Cholesterol 174 LDL Cholesterol 95 VLDL Cholesterol 26 HDL Cholesterol 53 TSH 2.08 POC Glucose 109 11/13/17 11/13/17 11/14/17 15:39 15:39 06:10 WBC 4.4 RBC 3.92 L Hgb 12.0 Hct 38.1 MCV 97.2 MCH 30.6 MCHC 31.5 L RDW 14.3 RDW Differential 50.7 H Plt Count 176 MPV 9.9 Immature Gran % (Auto) 0.000 Neut % (Auto) 52.1 Lymph % (Auto) 37.6 [place] % (Auto) 7.2 Eos % (Auto) 2.9 Baso % (Auto) 0.2 Absolute Neuts (auto) 2.3 Absolute Lymphs (auto) 1.66 Total Counted Not Reportable Differential Comment SCANNED ESR 28 PT INR APTT Sodium Potassium Chloride Carbon Dioxide Anion Gap BUN Creatinine Estim Creat Clear Calc Est GFR (MDRD) Af Amer Est GFR (MDRD) Non-Af BUN/Creatinine Ratio Glucose Hemoglobin A1c 6.4 H Calcium Troponin I Triglycerides Cholesterol LDL Cholesterol VLDL Cholesterol HDL Cholesterol TSH POC Glucose 11/14/17 06:10 WBC RBC Hgb Hct MCV MCH MCHC RDW RDW Differential Plt Count MPV Immature Gran % (Auto) Neut % (Auto) Lymph % (Auto) [place] % (Auto) Eos % (Auto) Baso % (Auto) Absolute Neuts (auto) Absolute Lymphs (auto) Total Counted Differential Comment ESR PT INR APTT Sodium 144 Potassium 4.3 Chloride 111 H Carbon Dioxide 27.0 Anion Gap 6 BUN 16 Creatinine 1.07 H Estim Creat Clear Calc 39.31 Est GFR (MDRD) Af Amer 65 Est GFR (MDRD) Non-Af 54 L BUN/Creatinine Ratio 15.0 Glucose 86 Hemoglobin A1c Calcium 8.2 L Troponin I Triglycerides Cholesterol LDL Cholesterol VLDL Cholesterol HDL Cholesterol TSH POC Glucose Operations: None Procedures: 2-D Echocardiogram Summary of Care Provided: The patient is a 72 year old F with hypertension, history of TIA and osteoarthritis. She was admitted on 11/23/2017 with a complaint of right facial droop which started around 7 PM on 11/12/2017. It was sudden and resolved by 9: 30 PM when she was brought to the hospital that day. She had no speech or focal weakness and a complaint of bilateral blurred vision which had also improved. She had also complained of a similar presentation about [address] of the head was negative for acute any acute event and CT of the neck was also negative. Patient was admitted and managed for TIA. Neurology was also consulted. Patient had an MRI of the brain on 11/14/2017 which was negative for any stroke. Patient had an echo on 11/14/2017 reading of which was pending at time she was discharged. She is follow-up with a PCP for the results as patient was to be discharged home today. Since MRI was negative, she is to continue on her home Plavix. She is follow-up with her PCP and neurologist. [] Discharge Diet: 2000 mg Sodium Diet Discharge Activity: Return to Normal Activity May resume sexual activity in: No Restrictions Weight Bearing Status: Weight bearing as tolerated Call your doctor if you observe: Fainting spells Home Medications: Medications to take at Discharge Cholecalciferol (VIT D3) [Vitamin D3] 1,000 unit PO DAILY 03/13/15 Hydrochlorothiazide 12.5 mg PO DAILY 03/13/15 Losartan Potassium [Cozaar] 100 mg PO DAILY 03/13/15 Metoprolol(XL)Succ [Toprol Xl (Beta Mikel)] 100 mg PO DAILY 03/13/15 Nitroglycerin [Nitrostat] 0.4 mg SUBLINGUAL Q5M PRN 03/13/15 Omeprazole [Prilosec] 20 mg PO DAILY 03/13/15 Pravastatin [Pravachol] 40 mg PO QHS 03/13/15 Acetaminophen [Tylenol Tablet] 650 mg PO Q4H PRN PRN #0 tablet 04/08/15 Oxycodone HCl/Acetaminophen [Percocet 5-325] 1 - 2 tablet PO Q4H PRN PRN #30 tablet 04/08/15 Senna/Docusate Sodium [Senokot-S] 2 tablet PO BID #0 tablet 04/08/15 Baclofen 10 mg PO QHS 11/13/17 Famotidine 40 mg PO BID 11/13/17 Gabapentin [Neurontin] 300 mg PO QHS 11/13/17 Plavix 75 mg PO DAILY 11/13/17 Primary Care Physician: Reynold Samayoa Chi, MD [Primary Care Provider] - Please follow up with your Primary Care Physician in: one week Please Follow Up With: Raúl Toledo MD When: two weeks Disposition: Home Minutes spent on discharge:: 35 Patient Condition:: Good Medical Necessity - Tobacco Use Smoking Status: Former smoker Meaningful Use Info Meaningful Use Diagnoses (Choose all that apply): None applicable Code Visit Inpatient E&M: 70796 Disch Hosp
== END 2017-11-14 16:46 | disposition home or self-care (01) ==
LOC: ED 23:07 → PCU 11-13 02:33
PROVIDERS: Psychiatry & Neurology Neurology; Admitting Provider Internal Medicine; Emergency Provider Emergency Medicine; Family Provider Family Medicine Geriatric Medicine; PCP Family Medicine Geriatric Medicine; Visit Provider Student in an Organized Health Care Education/Training Program
DX: G45.9 Transient cerebral ischemic attack, unspecified (principal); R29.810 Facial weakness; E66.9 Obesity, unspecified; M19.90 Unspecified osteoarthritis, unspecified site; R51 Headache; R20.0 Anesthesia of skin; R00.1 Bradycardia, unspecified; N17.9 Acute kidney failure, unspecified; I10 Essential (primary) hypertension; H53.8 Other visual disturbances; Z87.891 Personal history of nicotine dependence; Z68.32 Body mass index [BMI] 32.0-32.9, adult; Z71.3 Dietary counseling and surveillance; Z79.899 Other long term (current) drug therapy; Z79.02 Long term (current) use of antithrombotics/antiplatelets; M16.10 Unilateral primary osteoarthritis, unspecified hip; G89.29 Other chronic pain; M54.5 Low back pain; G62.9 Polyneuropathy, unspecified; R19.7 Diarrhea, unspecified
CPT/HCPCS: 36415; 70496; 70498; 70551; 71045; 72148; 80048; 80061; 82962; 83036; 84443; 84484; 85025; 85610; 85652; 85730; 92523; 93005; 93306; 96361; 96372; 96374; 96376; 97116; 97162; 97165; 97530; 97535; 97802; 99218; 99282; J7030; Q9967; A4216; G0378; J2405

== ENCOUNTER → 2017-11-22 16:15 | Outpatient (CLI) | payer MEDICARE, SELFPAY ==
[2017-11-22 17:22] LABS: ALB/GLOB Ratio 0.8 RATIO (0.9-2.4); AST(SGOT) 18 U/L (15-37); Alanine Aminotransfer ALT/SGPT 30 U/L (13-56); Albumin, Serum 3.4 g/dL (3.2-5.0); Alkaline Phosphatase 163 U/L (45-117); Anion Gap 9 (5-15); BUN 19 mg/dL (7-18); BUN/Creat Ratio 13.2 RATIO (10-20); Calcium,Total 8.8 mg/dL (8.5-10.1); Chloride 104 mmol/L (98-107); Creatinine, Serum 1.44 mg/dL (0.55-1.02); EST Glomerular Filtration Rate 38 mL/min (>60); Est Glom Filt Rate - Afr Amer 46 mL/min (>60); Globulin 4.1 g/dL (2.2-4.2); Glucose 93 mg/dL (74-106); Potassium 3.8 mmol/L (3.5-5.1); Protein, Total 7.5 g/dL (6.4-8.2); Sodium Level 140 mmol/L (136-145); Thyroid Stim Hormone (TSH) 0.94 uIU/mL (0.358-3.74)
[2017-11-22 18:50] LABS: White Blood Count 6.7 K/mm3 (4.4-11.0)
[2017-11-22 18:51] LABS: Basophil% 0.4 % (0-1); Eosinophils% 1.8 % (0-5); Hematocrit 43.7 % (37-47); Lymphocyte % 29.9 % (19-41); Mean Corpuscular Hgb 30.8 pg (27.0-32.0); Mean Platelet Vol. 9.8 fl (6.2-12.0); Monocyte% 8.5 % (0-10); Neutrophil % 59.3 % (47-70); POSITIVE COUNT NO; POSITIVE DIFFERENTIAL NO; POSITIVE MORPHOLOGY NO; Platelet Count 199 K/mm3 (150-450); RBC Distribution Width CV 14.1 % (11.6-14.6); RBC Distribution Width SD 49.2 fl (35.1-43.9); Red Blood Count 4.55 M/mm3 (4.2-5.4)
[2017-11-22 18:52] LABS: Basophil# 0.03 X10^3/uL; Eosinophil# 0.12 X10^3/uL; Monocyte# 0.57 X10^3/uL; Neutrophil # 3.97 X10^3/uL (2.7-7.7)
== END ==
LOC: POLAB3 16:15
PROVIDERS: Family Provider Family Medicine Geriatric Medicine; PCP Family Medicine Geriatric Medicine; Visit Provider Family Medicine Geriatric Medicine
DX: R53.83 Other fatigue (principal)
CPT/HCPCS: 36415; 80053; 84443; 85025; 87086; 87088

== ENCOUNTER 2017-12-27 14:00 | Outpatient (RCR) | payer MEDICARE, SELFPAY ==
--- NOTE | 2017-11-08 14:28 | HP.PTEVAL_ITS ---
Patient's Visit Information JOANIE RAMIREZ is a 72 year old F referred to Physical Therapy by Eligio Quick MD with a diagnosis of abnormal gait due to muscle weakness. Date of Evaluation: 11/08/17 Physical Therapist: Margarita Lee - Visit Plan Frequency: 2x /Week Duration: 4 Weeks Plan: 2X/ week for 4 weeks to work on LE strengthening (focus on hip strengthening---(R THR 2016)), High level balance activities and gait training with head movements, picking objects upr from the floor, stairs, sit to stand transfers, HS and gastroc stretching with HEP. Pt will start sitting at home and looking R and L with head and eyes and see if she can get better with less dizziness over time....may try and proceed to standing with this as able. - Subjective Subjective: Last night she broke her little toe stepping on a toy on the floor. It is all black and blue. She can move it. She is just going to walk around with open toe shoes for awhile. She did balance therapy here before and it was not in her head. She fell last sat getting in the car and she brusing really. She has fallen quite a few time (greater than 10) in the last 6 months. Steps are really hard for her.....she has to put her laundry on the 3rd step up and then climbs the steps and gets up that way. She has a lot of stairs in her house and has her bedroom upstairs. She has no railings on her stairs but she hugs the rees. She lives with her and daughter, son in law and their [address] Quick told her that he feels that it is weaknees in LE and spine. Pt had a TIA in Apr 2017 and she knew what she wanted to say but could not form her words. It did no damage to her brain. She has this weakness in her legs now. This has been really bad over the last couple of months. She has not been sedentary.....She does housework. She is still driving. She has a hard time getting into the car. She gets dizzy a lot if she turns her head too much, if she walks and turns suddenly without thinking. The dizziness has been going on for awhile. She is wondering if the water pills is what is causing the dizziness. She reports that it is hard to get up from the floor. SHe would have to slide to something to pull self up. She admits to having anxiety about falling....she is always afraid to go out due to falling. - Pain R little toe pain Pain Intensity (Out of 10): 10 - Objective Gait: Walks with slow gait with some veering and slow deliberate steps. FGA: 8 (pt anxiety really high during this test to the point she was feeling a little sick to the stomach...subsided when she was sitting in safe environment)/ . LE MMT: R hip flex 3-/5 and L 4-/5, B knee flex 4-/5, B knee ext 4/5, R hip abd 4-/ and L 3+/5, only able to do 1/4 normal ROM bridge. Standing heel and toe raises: difficult to do even with UE support. Not able to get out of a chair unless she has her UE's to help her get out of the chair - Balance Scores Functional Gait Assessment Score: 8 % Disability: 73.3400 - Goals Goal 1:: I HEP Goal Time Frame: 4-6 Weeks Goal 2:: Be able to sit to stand out of a chair with 1 hand support on chair rail X 5 Goal Time Frame: 4-6 Weeks Goal 3:: Increase B LE strength by 1/2 muscle grade to improve balance and overall function (at time of eval: LE MMT: R hip flex 3-/5 and L 4-/5, B knee flex 4-/5, B knee ext 4/5, R hip abd 4-/ and L 3+/5, only able to do 1/4 normal ROM bridge. Standing heel and toe raises: difficult to do even with UE support ) Goal Time Frame: 4-6 Weeks Goal 4:: Increas FGA by 5 points to decrease overall fall risk (from 8-13) Goal Time Frame: 4-6 Weeks - Rehabilitation Potential Rehabilitation Potential: Good - Anticipated Interventions Patient/Client Instruction: Educate patient on: Condition, Plan of Care For the Purpose of:: To improve nutrient delivery to tissue, To improve muscle performance and motor function, To improve ability to perform ADL's, To increase tolerance to activity/condition/position, To improve ability of physical actions for home/community/work/leisure, To improve gait and locomotor functions, To improve balance, To improve safety with gait Therapeutic Exercise to Include: Strength training, Balance training, Postural training, Gait and locomotor training, Passive ROM, Active ROM For the Purpose of:: To increase ROM, To improve nutrient delivery to tissue, To improve muscle performance and motor function, To improve ability to perform ADL's, To improve performance and independence with ADL's, To improve gait and locomotor functions, To decrease soft tissue restriction, To increase flexibility/ROM, To improve balance, To improve safety with gait Functional Training to Include: Gait training For the Purpose of:: To improve gait and locomotor functions, To improve safety with gait Thank you for the opportunity to evaluate your patient. For Medicare and Medicare HMO plans, please review the plan of care and approve it. It will need to be FAXED BACK to us at [phone] for Medicare purposes. Please let me know if there are questions or concerns regarding this plan of care. Physician Signature: Date:
--- NOTE | 2017-12-07 13:36 | HP.PTREVAL_ITS ---
Eligio Quick MD, It has been my pleasure to treat JOANIE RAMIREZ over the last 6 visits for abnormal gait due to muscle weakness. Please see the progress note below for an update on the physical therapy plan of care! Subjective: Pt reports that she is dizzy today. If she moves her head too much she feels nauseated and dizzy until she holds still. Room does not spin. No dizziness when rolls over in bed. Objective/Function: Eyes and head are not moving together. Pt got better with smooth pursuits the more that she did. Plan Plan: Work on smooth pursuits and then add head mvoement as able... Continue with strengthening. 2X/ week for 4 weeks to work on LE strengthening (focus on hip strengthening---(R THR 2016)), High level balance activities and gait training with head movements, picking objects upr from the floor, stairs, sit to stand transfers, HS and gastroc stretching with HEP. Pt will start sitting at home and looking R and L with head and eyes and see if she can get better with less dizziness over time....may try and proceed to standing with this as able. Goals Goal 1:: I HEP Goal Time Frame: 4-6 Weeks Goal 2:: Be able to sit to stand out of a chair with 1 hand support on chair rail X 5 Goal Time Frame: 4-6 Weeks Goal 3:: Increase B LE strength by 1/2 muscle grade to improve balance and overall function (at time of eval: LE MMT: R hip flex 3-/5 and L 4-/5, B knee flex 4-/5, B knee ext 4/5, R hip abd 4-/ and L 3+/5, only able to do 1/4 normal ROM bridge. Standing heel and toe raises: difficult to do even with UE support ) Goal Time Frame: 4-6 Weeks Goal 4:: Increas FGA by 5 points to decrease overall fall risk (from 8-13) Goal Time Frame: 4-6 Weeks Anticipated Interventions Patient/Client Instruction: Educate patient on: Condition, Plan of Care For the Purpose of:: To improve nutrient delivery to tissue, To improve muscle performance and motor function, To improve ability to perform ADL's, To increase tolerance to activity/condition/position, To improve ability of physical actions for home/community/work/leisure, To improve gait and locomotor functions, To improve balance, To improve safety with gait Therapeutic Exercise to Include: Strength training, Balance training, Postural training, Gait and locomotor training, Passive ROM, Active ROM For the Purpose of:: To increase ROM, To improve nutrient delivery to tissue, To improve muscle performance and motor function, To improve ability to perform ADL's, To improve performance and independence with ADL's, To improve gait and locomotor functions, To decrease soft tissue restriction, To increase flexibility/ROM, To improve balance, To improve safety with gait Functional Training to Include: Gait training For the Purpose of:: To improve gait and locomotor functions, To improve safety with gait Please do not hesitate to contact me at [phone] by phone or Fax: if you have questions or concerns regarding this new plan of care! Sincerely, Margarita Lee
--- NOTE | 2017-12-20 14:35 | HP.PTREVAL_ITS ---
Eligio Quick MD, It has been my pleasure to treat JOANIE RAMIREZ over the last 9 visits for abnormal gait due to muscle weakness. Please see the progress note below for an update on the physical therapy plan of care! Subjective: Pt reports that she has not fallen since she started here. She reports that she is never dizzy unless shoe looks up and down. Objective/Function: HEP: Trying to walk more even around the house. Discussed doing sit to stands X 3 every day. FGA: 14. LE Strength: B hip abd 4-/5, hip flex B 4-/5, B knee ext 4/5, B knee flex 4/5, able to do 3/5 ROM bridge. Sit to stand with 1 hand on chair rail: able with 1 hand rail. Stairs: Up stairs recip with 1 rail, descends with 2 rails alternating feet with SBA Plan Plan: 2X/ week for 4 weeks to work on gait with vertical head turns(R THR 2016)) , Work on strengthening of LE's and high level balance activities. Goals Goal 1:: I HEP for LE strengthening Goal Time Frame: 4-6 Weeks Goal 2:: Be able to sit to stand out of a chair with 1 hand support on chair rail X 5 Goal Time Frame: 4-6 Weeks Goal Progress: Progressing Goal 3:: Increase B LE strength by 1/2 muscle grade to improve balance and overall function (at time of eval: LE MMT: R hip flex 3-/5 and L 4-/5, B knee flex 4-/5, B knee ext 4/5, R hip abd 4-/ and L 3+/5, only able to do 1/4 normal ROM bridge. Standing heel and toe raises: difficult to do even with UE support ) Goal Time Frame: 4-6 Weeks Goal Progress: Progressing Goal 4:: Increas FGA by 4 points to decrease overall fall risk (from 14-18) Goal Time Frame: 4-6 Weeks Goal Progress: Progressing Anticipated Interventions Patient/Client Instruction: Educate patient on: Condition, Plan of Care For the Purpose of:: To improve nutrient delivery to tissue, To improve muscle performance and motor function, To improve ability to perform ADL's, To increase tolerance to activity/condition/position, To improve ability of physical actions for home/community/work/leisure, To improve gait and locomotor functions, To improve balance, To improve safety with gait Therapeutic Exercise to Include: Strength training, Balance training, Postural training, Gait and locomotor training, Passive ROM, Active ROM For the Purpose of:: To increase ROM, To improve nutrient delivery to tissue, To improve muscle performance and motor function, To improve ability to perform ADL's, To improve performance and independence with ADL's, To improve gait and locomotor functions, To decrease soft tissue restriction, To increase flexibility/ROM, To improve balance, To improve safety with gait Functional Training to Include: Gait training For the Purpose of:: To improve gait and locomotor functions, To improve safety with gait Please do not hesitate to contact me at [phone] by phone or Fax: if you have questions or concerns regarding this new plan of care! Sincerely, Margarita Lee
--- NOTE | 2017-12-27 14:41 | HP.PTDCSUM_ITS ---
HP - PT D/C Summary It has been my pleasure to treat JOANIE RAMIREZ under orders from Eligio Quick MD, for the diagnosis of abnormal gait due to muscle weakness for a total of 10 visit(s). Discharge Date: 12/27/17 Please see the following information for a summary of their discharge status. - Subjective Subjective: Pt reports that she is having trouble getting up here and feels that she has been helped byPT so much that she wants to continue to do some things at home. - Pain R little toe pain Pain Intensity (Out of 10): 6 LB Pain Intensity (Out of 10): 0 - Overall Improvement % Improvement: 80 - Objective Objective/Function: FGA improved. Improved turning with less dizziness today. - Goals Goal 1:: I HEP for LE strengthening Goal Progress: Goal Met Goal 2:: Be able to sit to stand out of a chair with 1 hand support on chair rail X 5 Goal Progress: Goal Met Goal 3:: Increase B LE strength by 1/2 muscle grade to improve balance and overall function (at time of eval: LE MMT: R hip flex 3-/5 and L 4-/5, B knee flex 4-/5, B knee ext 4/5, R hip abd 4-/ and L 3+/5, only able to do 1/4 normal ROM bridge. Standing heel and toe raises: difficult to do even with UE support ) Goal Progress: Progressing Goal 4:: Increas FGA by 4 points to decrease overall fall risk (from 14-18) Goal Progress: Progressing - Plan Plan: DC PT to HEP due to pt not being able to get a ride to PT - D/C Information Discharge Comments: DC PT to HEP If there are questions or concerns regarding this patient's physical therapy, please feel free to call me at [phone]. Thank you for the referral of this patient. Sincerely, Margarita Lee
== END 2017-12-27 14:50 | disposition home or self-care (01) ==
LOC: PT 14:00
PROVIDERS: Family Provider Family Medicine Geriatric Medicine; PCP Family Medicine Geriatric Medicine; Visit Provider Otolaryngology
DX: M62.81 Muscle weakness (generalized) (principal)
CPT/HCPCS: 97110; 97162; 97530

== ENCOUNTER → 2018-03-02 13:28 | Outpatient (CLI) | payer MEDICARE, SELFPAY ==
[2018-03-02 13:53] LABS: Absolute Lymphocyte Count 1.42 X10^3/ul (0.83-4.51); Absolute Neutrophil Count 4.4 X10^3/uL (2.0-7.7); Basophil# 0.02 X10^3/uL; Basophil% 0.3 % (0-1); Eosinophil# 0.21 X10^3/uL; Eosinophils% 3.2 % (0-5); Hematocrit 42.5 % (37-47); Hemoglobin 13.4 g/dl (12.0-15.0); Lymphocyte # 1.42 X10^3/ul (4.0); Lymphocyte % 21.4 % (19-41); Mean Corp Hgb Conc 31.5 g/gl (32-36); Mean Corpuscular Hgb 30.2 pg (27.0-32.0); Mean Corpuscular Volume 95.9 fL (81-99); Mean Platelet Vol. 9.8 fl (6.2-12.0); Monocyte# 0.59 X10^3/uL; Monocyte% 8.9 % (0-10); Neutrophil # 4.38 X10^3/uL (2.7-7.7); Neutrophil % 65.7 % (47-70); POSITIVE COUNT NO; POSITIVE DIFFERENTIAL NO; POSITIVE MORPHOLOGY NO; Platelet Count 238 K/mm3 (150-450); RBC Distribution Width CV 14.3 % (11.6-14.6); RBC Distribution Width SD 48.7 fl (35.1-43.9); Red Blood Count 4.43 M/mm3 (4.2-5.4); White Blood Count 6.7 K/mm3 (4.4-11.0)
[2018-03-02 14:25] LABS: Vitamin D,25 Hydroxy 14.8 ng/mL (29.95-100.01)
[2018-03-02 14:27] LABS: ALB/GLOB Ratio 0.9 RATIO (0.9-2.4); AST(SGOT) 14 U/L (15-37); Alanine Aminotransfer ALT/SGPT 21 U/L (13-56); Albumin, Serum 3.4 g/dL (3.2-5.0); Alkaline Phosphatase 169 U/L (45-117); Anion Gap 7 (5-15); BUN 11 mg/dL (7-18); BUN/Creat Ratio 11.4 RATIO (10-20); Calcium,Total 8.7 mg/dL (8.5-10.1); Chloride 107 mmol/L (98-107); Creatinine, Serum 0.97 mg/dL (0.55-1.02); EST Glomerular Filtration Rate 60 mL/min (>60); Est Glom Filt Rate - Afr Amer 73 mL/min (>60); Globulin 3.8 g/dL (2.2-4.2); Glucose 89 mg/dL (74-106); Potassium 4.1 mmol/L (3.5-5.1); Protein, Total 7.2 g/dL (6.4-8.2); Sodium Level 140 mmol/L (136-145); Thyroid Stim Hormone (TSH) 1.08 uIU/mL (0.358-3.74)
[2018-03-03 15:40] LABS: Hep C Antibodies <0.1 s/co ratio (0.0-0.9)
== END ==
PROVIDERS: Family Provider Family Medicine Geriatric Medicine; PCP Family Medicine Geriatric Medicine; Visit Provider Family Medicine Geriatric Medicine
DX: E55.9 Vitamin D deficiency, unspecified (principal); I10 Essential (primary) hypertension
CPT/HCPCS: 36415; 80053; 82306; 84443; 85025; 86803

== ENCOUNTER → 2018-04-13 13:50 | Outpatient (CLI) | payer MEDICARE, SELFPAY ==
[2017-11-14 11:32] VITALS: BMI 32.5
--- NOTE | 2018-04-13 13:55 | RAD_ITS ---
STUDY: X-RAY - LUMBAR SPINE REASON FOR EXAM: Female, 72 years old. Lower back pain TECHNIQUE: 3 view(s) of the lumbar spine were obtained. COMPARISON: None FINDINGS: Normal lumbar lordosis. Mild dextroconvex scoliosis. There is a normal alignment of the vertebrae. Normal vertebral bodies and endplates. Normal disc space heights. Lower lumbar facet disease. Vascular calcifications. Right hip prosthesis. Diffuse spondylosis. RAD/Lumbar Spine 2 or 3 Views IMPRESSION: Spondylosis and mild scoliosis. No compression deformity. Lower lumbar facet disease. Electronically Signed: Chema King MD at 9:52 EST Tel , Service support ,
== END ==
LOC: RAD 13:52
PROVIDERS: Family Provider Family Medicine Geriatric Medicine; PCP Family Medicine Geriatric Medicine; Referring Provider Family Medicine Geriatric Medicine; Visit Provider Family Medicine Geriatric Medicine
DX: M54.5 Low back pain (principal)
CPT/HCPCS: 72100

== ENCOUNTER → 2018-06-08 15:13 | Outpatient (CLI) | payer MEDICARE, SELFPAY ==
[2018-06-08 14:22] VITALS: BMI 32.8
[2018-06-08 17:07] LABS: Absolute Lymphocyte Count 1.56 X10^3/ul (0.83-4.51); Absolute Neutrophil Count 4.5 X10^3/uL (2.0-7.7); Basophil# 0.01 X10^3/uL; Basophil% 0.1 % (0-1); Eosinophil# 0.11 X10^3/uL; Eosinophils% 1.6 % (0-5); Hematocrit 39.7 % (37-47); Hemoglobin 12.7 g/dl (12.0-15.0); Lymphocyte # 1.56 X10^3/ul (4.0); Mean Corpuscular Hgb 29.7 pg (27.0-32.0); Mean Corpuscular Volume 92.8 fL (81-99); Mean Platelet Vol. 9.8 fl (6.2-12.0); Monocyte# 0.63 X10^3/uL; Monocyte% 9.3 % (0-10); Neutrophil # 4.45 X10^3/uL (2.7-7.7); Neutrophil % 65.7 % (47-70); Platelet Count 208 K/mm3 (150-450); RBC Distribution Width CV 14.8 % (11.6-14.6); RBC Distribution Width SD 50.2 fl (35.1-43.9); Red Blood Count 4.28 M/mm3 (4.2-5.4); White Blood Count 6.8 K/mm3 (4.4-11.0)
[2018-06-08 17:14] LABS: POSITIVE COUNT NO; POSITIVE DIFFERENTIAL NO; POSITIVE MORPHOLOGY NO
[2018-06-08 17:27] LABS: Vitamin D,25 Hydroxy 55.3 ng/mL (29.95-100.01)
[2018-06-08 17:29] LABS: ALB/GLOB Ratio 0.9 RATIO (0.9-2.4); AST(SGOT) 15 U/L (15-37); Alanine Aminotransfer ALT/SGPT 21 U/L (13-56); Albumin, Serum 3.3 g/dL (3.2-5.0); Alkaline Phosphatase 178 U/L (45-117); Anion Gap 11 (5-15); BUN 16 mg/dL (7-18); BUN/Creat Ratio 15.5 RATIO (10-20); Calcium,Total 8.8 mg/dL (8.5-10.1); Chloride 106 mmol/L (98-107); Creatinine, Serum 1.03 mg/dL (0.55-1.02); EST Glomerular Filtration Rate 56 mL/min (>60); Est Glom Filt Rate - Afr Amer 68 mL/min (>60); Globulin 3.5 g/dL (2.2-4.2); Glucose 89 mg/dL (74-106); Potassium 3.7 mmol/L (3.5-5.1); Protein, Total 6.8 g/dL (6.4-8.2); Sodium Level 143 mmol/L (136-145); Thyroid Stim Hormone (TSH) 1.74 uIU/mL (0.358-3.74)
== END ==
PROVIDERS: Family Provider Family Medicine Geriatric Medicine; PCP Family Medicine Geriatric Medicine; Visit Provider Family Medicine Geriatric Medicine
DX: E55.9 Vitamin D deficiency, unspecified (principal); I10 Essential (primary) hypertension
CPT/HCPCS: 36415; 80053; 82306; 84443; 85025

== ENCOUNTER → 2018-07-05 16:16 | Outpatient (CLI) | payer MEDICARE, SELFPAY ==
[2018-06-26 15:04] VITALS: BMI 32.8
[2018-07-05 17:04] LABS: Basophil# 0.03 X10^3/uL; Basophil% 0.5 % (0-1); Eosinophil# 0.13 X10^3/uL; Eosinophils% 2.1 % (0-5); Hematocrit 39.6 % (37-47); Hemoglobin 12.7 g/dl (12.0-15.0); Lymphocyte % 22.9 % (19-41); Mean Corp Hgb Conc 32.1 g/gl (32-36); Mean Corpuscular Volume 93.4 fL (81-99); Mean Platelet Vol. 9.7 fl (6.2-12.0); Monocyte# 0.56 X10^3/uL; Monocyte% 9.2 % (0-10); Neutrophil # 3.99 X10^3/uL (2.7-7.7); Neutrophil % 65.1 % (47-70); Platelet Count 244 K/mm3 (150-450); RBC Distribution Width CV 14.9 % (11.6-14.6); RBC Distribution Width SD 49.3 fl (35.1-43.9); Red Blood Count 4.24 M/mm3 (4.2-5.4); White Blood Count 6.1 K/mm3 (4.4-11.0)
[2018-07-05 17:08] LABS: POSITIVE COUNT NO; POSITIVE DIFFERENTIAL NO; POSITIVE MORPHOLOGY NO
[2018-07-05 17:42] LABS: Anion Gap 11 (5-15); BUN 21 mg/dL (7-18); BUN/Creat Ratio 15.2 RATIO (10-20); Chloride 102 mmol/L (98-107); Creatinine, Serum 1.38 mg/dL (0.55-1.02); EST Glomerular Filtration Rate 40 mL/min (>60); Est Glom Filt Rate - Afr Amer 48 mL/min (>60); Glucose 107 mg/dL (74-106); Potassium 3.8 mmol/L (3.5-5.1); Sodium Level 141 mmol/L (136-145)
== END ==
LOC: POLAB3 16:16
PROVIDERS: Family Provider Family Medicine Geriatric Medicine; PCP Family Medicine Geriatric Medicine; Visit Provider Family Medicine Geriatric Medicine
DX: D64.9 Anemia, unspecified (principal); I25.10 Atherosclerotic heart disease of native coronary artery without angina pectoris
CPT/HCPCS: 36415; 80048; 85025

== ENCOUNTER → 2018-07-10 16:02 | Outpatient (CLI) | payer MEDICARE, SELFPAY ==
[2018-07-10 15:27] VITALS: BMI 32.8
== END ==
LOC: POLAB3 16:03
PROVIDERS: Family Provider Family Medicine Geriatric Medicine; PCP Family Medicine Geriatric Medicine; Visit Provider Family Medicine Geriatric Medicine
DX: N39.0 Urinary tract infection, site not specified (principal)
CPT/HCPCS: 87086; 87088; 87186

== ENCOUNTER → 2018-09-14 15:18 | Outpatient (CLI) | payer MEDICARE, SELFPAY ==
[2018-07-10 15:27] VITALS: BMI 32.8
[2018-09-14 18:12] LABS: ALB/GLOB Ratio 1.2 RATIO (0.9-2.4); AST(SGOT) 22 U/L (15-37); Alanine Aminotransfer ALT/SGPT 27 U/L (13-56); Albumin, Serum 3.5 g/dL (3.2-5.0); Alkaline Phosphatase 143 U/L (45-117); Anion Gap 5 (5-15); BUN 18 mg/dL (7-18); BUN/Creat Ratio 18.9 RATIO (10-20); Calcium,Total 8.7 mg/dL (8.5-10.1); Chloride 105 mmol/L (98-107); Creatinine, Serum 0.95 mg/dL (0.55-1.02); EST Glomerular Filtration Rate 61 mL/min (>60); Est Glom Filt Rate - Afr Amer 74 mL/min (>60); Glucose 100 mg/dL (74-106); Potassium 4.3 mmol/L (3.5-5.1); Protein, Total 6.5 g/dL (6.4-8.2); Sodium Level 141 mmol/L (136-145); Thyroid Stim Hormone (TSH) 1.34 uIU/mL (0.358-3.74)
[2018-09-14 18:19] LABS: Absolute Lymphocyte Count 1.85 X10^3/ul (0.83-4.51); Absolute Neutrophil Count 4.1 X10^3/uL (2.0-7.7); Basophil# 0.02 X10^3/uL; Basophil% 0.3 % (0-1); Eosinophil# 0.13 X10^3/uL; Eosinophils% 1.9 % (0-5); Hematocrit 41.1 % (37-47); Hemoglobin 13.3 g/dl (12.0-15.0); Lymphocyte # 1.85 X10^3/ul (4.0); Lymphocyte % 27.7 % (19-41); Mean Corp Hgb Conc 32.4 g/gl (32-36); Mean Corpuscular Hgb 30.2 pg (27.0-32.0); Mean Corpuscular Volume 93.2 fL (81-99); Monocyte# 0.55 X10^3/uL; Monocyte% 8.2 % (0-10); Neutrophil % 61.6 % (47-70); Platelet Count 228 K/mm3 (150-450); RBC Distribution Width CV 14.4 % (11.6-14.6); Red Blood Count 4.41 M/mm3 (4.2-5.4); White Blood Count 6.7 K/mm3 (4.4-11.0)
[2018-09-14 18:20] LABS: Differential Indicated SCAN CRITERIA MET; POSITIVE COUNT YES; POSITIVE DIFFERENTIAL NO; POSITIVE MORPHOLOGY YES
[2018-09-14 18:36] LABS: Anisocytosis RARE; Macrocytosis RARE; Platelet Estimate ADEQUATE (ADEQ); Platelet Morphology LARGE
== END ==
PROVIDERS: Family Provider Family Medicine Geriatric Medicine; PCP Family Medicine Geriatric Medicine; Visit Provider Family Medicine Geriatric Medicine
DX: E55.9 Vitamin D deficiency, unspecified (principal); I10 Essential (primary) hypertension
CPT/HCPCS: 36415; 80053; 82306; 84443; 85025

== ENCOUNTER → 2018-09-16 09:47 | Outpatient (CLI) | payer MEDICARE, SELFPAY ==
[2018-07-10 15:27] VITALS: BMI 32.8
--- NOTE | 2018-09-16 09:56 | RAD_ITS ---
STUDY: X-RAY - ABDOMEN/PELVIS REASON FOR EXAM: Female, 73 years old. Left lateral abdominal pain radiating to the left groin. TECHNIQUE: Single AP view of the abdomen / pelvis. COMPARISON: None. FINDINGS: There are nonspecific gaseous small bowel loops. The visualized liver, spleen and kidneys are grossly normal in size . Normal soft tissue structures. There is right hip prosthesis in place. RAD/Abd Inc Decub and/or Erect IMPRESSION: Nonspecific gas pattern. Electronically Signed: Abraham Suh MD at 14:04 EDT Tel , Service support ,
== END ==
PROVIDERS: Family Provider Family Medicine Geriatric Medicine; PCP Family Medicine Geriatric Medicine; Referring Provider Family Medicine Geriatric Medicine; Visit Provider Family Medicine Geriatric Medicine
DX: R10.9 Unspecified abdominal pain (principal)
CPT/HCPCS: 74019

== ENCOUNTER → 2018-10-30 14:00 | Outpatient (CLI) | payer MEDICARE, SELFPAY ==
[2018-07-10 15:27] VITALS: BMI 32.8
[2018-10-30 16:06] LABS: Absolute Lymphocyte Count 1.39 X10^3/ul (0.83-4.51); Absolute Neutrophil Count 4.1 X10^3/uL (2.0-7.7); Basophil# 0.02 X10^3/uL; Basophil% 0.3 % (0-1); Eosinophil# 0.09 X10^3/uL; Eosinophils% 1.4 % (0-5); Hematocrit 42.4 % (37-47); Hemoglobin 13.9 g/dl (12.0-15.0); Lymphocyte # 1.39 X10^3/ul (4.0); Lymphocyte % 22.2 % (19-41); Mean Corp Hgb Conc 32.8 g/gl (32-36); Mean Corpuscular Hgb 29.4 pg (27.0-32.0); Mean Corpuscular Volume 89.8 fL (81-99); Mean Platelet Vol. 9.5 fl (6.2-12.0); Monocyte# 0.61 X10^3/uL; Monocyte% 9.8 % (0-10); Neutrophil # 4.13 X10^3/uL (2.7-7.7); Neutrophil % 66.1 % (47-70); Platelet Count 208 K/mm3 (150-450); RBC Distribution Width CV 14.3 % (11.6-14.6); RBC Distribution Width SD 46.9 fl (35.1-43.9); Red Blood Count 4.72 M/mm3 (4.2-5.4); White Blood Count 6.3 K/mm3 (4.4-11.0)
[2018-10-30 16:08] LABS: Anion Gap 11 (5-15); BUN 26 mg/dL (7-18); BUN/Creat Ratio 12.2 RATIO (10-20); Calcium,Total 9.1 mg/dL (8.5-10.1); Chloride 102 mmol/L (98-107); Creatinine, Serum 2.13 mg/dL (0.55-1.02); EST Glomerular Filtration Rate 24 mL/min (>60); Est Glom Filt Rate - Afr Amer 29 mL/min (>60); Glucose 103 mg/dL (74-106); Potassium 3.2 mmol/L (3.5-5.1); Sodium Level 140 mmol/L (136-145)
[2018-10-30 16:10] LABS: POSITIVE COUNT NO; POSITIVE DIFFERENTIAL NO; POSITIVE MORPHOLOGY NO
== END ==
LOC: POLAB3 14:01
PROVIDERS: Family Provider Family Medicine Geriatric Medicine; PCP Family Medicine Geriatric Medicine; Visit Provider Family Medicine Geriatric Medicine
DX: N39.0 Urinary tract infection, site not specified (principal); R10.9 Unspecified abdominal pain
CPT/HCPCS: 36415; 80048; 85025; 87086; 87088; 87186

== ENCOUNTER → 2018-11-03 11:01 | Outpatient (CLI) | payer MEDICARE, SELFPAY ==
[2018-07-10 15:27] VITALS: BMI 32.8
[2018-11-03 12:45] LABS: Anion Gap 12 (5-15); BUN 11 mg/dL (7-18); BUN/Creat Ratio 9.7 RATIO (10-20); Chloride 106 mmol/L (98-107); Creatinine, Serum 1.13 mg/dL (0.55-1.02); EST Glomerular Filtration Rate 50 mL/min (>60); Est Glom Filt Rate - Afr Amer 61 mL/min (>60); Glucose 96 mg/dL (74-106); Potassium 3.2 mmol/L (3.5-5.1); Sodium Level 145 mmol/L (136-145)
== END ==
PROVIDERS: Family Provider Family Medicine Geriatric Medicine; PCP Family Medicine Geriatric Medicine; Visit Provider Family Medicine Geriatric Medicine
DX: N17.8 Other acute kidney failure (principal)
CPT/HCPCS: 36415; 80048

== ENCOUNTER → 2018-11-13 10:35 | Outpatient (CLI) | payer MEDICARE, SELFPAY ==
[2018-07-10 15:27] VITALS: BMI 32.8
[2018-11-13 12:38] LABS: Anion Gap 7 (5-15); BUN 12 mg/dL (7-18); BUN/Creat Ratio 11.2 RATIO (10-20); Chloride 104 mmol/L (98-107); Creatinine, Serum 1.07 mg/dL (0.55-1.02); EST Glomerular Filtration Rate 53 mL/min (>60); Est Glom Filt Rate - Afr Amer 65 mL/min (>60); Glucose 109 mg/dL (74-106); Potassium 3.7 mmol/L (3.5-5.1); Sodium Level 141 mmol/L (136-145)
== END ==
PROVIDERS: Family Provider Family Medicine Geriatric Medicine; PCP Family Medicine Geriatric Medicine; Visit Provider Family Medicine Geriatric Medicine
DX: E87.6 Hypokalemia (principal)
CPT/HCPCS: 36415; 80048

== ENCOUNTER → 2018-11-23 11:44 | Outpatient (CLI) | payer MEDICARE, SELFPAY ==
[2018-07-10 15:27] VITALS: BMI 32.8
[2018-11-23 12:34] LABS: Absolute Lymphocyte Count 1.32 X10^3/uL (0.83-4.51); Absolute Neutrophil Count 3.3 X10^3/uL (2.0-7.7); Basophil# 0.02 X10^3/uL; Basophil% 0.4 % (0-1); Eosinophil# 0.09 X10^3/uL; Eosinophils% 1.8 % (0-5); Hematocrit 40.9 % (37-47); Hemoglobin 13.1 g/dL (12.0-15.0); Lymphocyte # 1.32 X10^3/ul (4.0); Mean Corpuscular Hgb 29.2 pg (27.0-32.0); Mean Corpuscular Volume 91.3 fL (81-99); Mean Platelet Vol. 9.7 fl (6.2-12.0); Monocyte# 0.37 X10^3/uL; Monocyte% 7.3 % (0-10); NRBC Flagged by Analyzer 0 % (0-5); Neutrophil # 3.27 X10^3/uL (2.7-7.7); Neutrophil % 64.3 % (47-70); Platelet Count 235 K/mm3 (150-450); RBC Distribution Width CV 14.4 % (11.6-14.6); RBC Distribution Width SD 47.6 fl (35.1-43.9); Red Blood Count 4.48 M/mm3 (4.2-5.4); White Blood Count 5.1 K/mm3 (4.4-11.0)
[2018-11-23 12:47] LABS: Anion Gap 5 (5-15); BUN 15 mg/dL (7-18); BUN/Creat Ratio 14.6 RATIO (10-20); Calcium,Total 9.2 mg/dL (8.5-10.1); Chloride 105 mmol/L (98-107); Creatinine, Serum 1.03 mg/dL (0.55-1.02); EST Glomerular Filtration Rate 56 mL/min (>60); Est Glom Filt Rate - Afr Amer 67 mL/min (>60); Glucose 96 mg/dL (74-106); Potassium 3.9 mmol/L (3.5-5.1); Sodium Level 141 mmol/L (136-145)
--- NOTE | 2018-11-23 14:42 | RAD_ITS ---
STUDY: X-RAY CHEST REASON FOR EXAM: Female, 73 years old. Bronchitis, cough, shortness of breath TECHNIQUE: PA and lateral chest COMPARISON: 11/12/2017 chest x-ray FINDINGS: Chronic elevation/eventration of the right hemidiaphragm. The lungs are clear and expanded. Normal cardiomediastinal silhouette, carlos manuel and pleural margins. No acute osseous or upper abdominal process. RAD/Chest PA and Lateral IMPRESSION: No acute cardiopulmonary process. Electronically Signed: Suhail Coats MD at 8:55 EDT Tel , Service support ,
--- NOTE | 2018-11-23 14:42 | RAD_ITS ---
STUDY: X-RAY - ABDOMEN/PELVIS REASON FOR EXAM: Female, 73 years old. Diarrhea, nausea, vomiting last night, generalized illness 2 weeks. TECHNIQUE: 3 views of the abdomen, and pelvis, upright and supine views. COMPARISON: None. FINDINGS: Grossly normal size and position of the solid organs. No evidence of free air. Mild gaseous distention of the right large bowel. Decompressed distally. Minimal gas within the distal small bowel, nondilated. Mucosal features of the distal small bowel in the right lower quadrant are conspicuous suggesting mucosal thickening, suspected ileitis. Elevated right hemidiaphragm. No significant hepatomegaly is apparent. Lung bases clear. Normal cardiac silhouette. Mild scoliosis, mild multilevel lumbar spondylosis. No acute osseous process. RAD/Abd Inc Decub and/or Erect IMPRESSION: Conspicuous features of the distal small bowel in the right lower quadrant suggesting the possibility of acute ileitis. Electronically Signed: Suhail Coats MD at 8:54 EDT Tel , Service support ,
== END ==
LOC: POLAB3 11:44 → RAD 14:41
PROVIDERS: Family Provider Family Medicine Geriatric Medicine; PCP Family Medicine Geriatric Medicine; Referring Provider Family Medicine Geriatric Medicine; Visit Provider Family Medicine Geriatric Medicine
DX: R19.7 Diarrhea, unspecified (principal); J40 Bronchitis, not specified as acute or chronic; R11.2 Nausea with vomiting, unspecified
CPT/HCPCS: 36415; 71046; 74019; 80048; 85025

== ENCOUNTER → 2019-02-02 10:17 | Outpatient (CLI) | payer MEDICARE, SELFPAY ==
[2018-07-10 15:27] VITALS: BMI 32.8
[2019-02-02 13:04] LABS: Absolute Lymphocyte Count 1.14 X10^3/uL (0.83-4.51); Absolute Neutrophil Count 3.7 X10^3/uL (2.0-7.7); Basophil# 0.03 X10^3/uL; Basophil% 0.6 % (0-1); Eosinophil# 0.07 X10^3/uL; Eosinophils% 1.3 % (0-5); Hematocrit 41.1 % (37-47); Hemoglobin 13.3 g/dL (12.0-15.0); Lymphocyte # 1.14 X10^3/ul (4.0); Lymphocyte % 21.2 % (19-41); Mean Corp Hgb Conc 32.4 g/dL (32-36); Mean Corpuscular Volume 95.8 fL (81-99); Mean Platelet Vol. 9.9 fl (6.2-12.0); Monocyte# 0.42 X10^3/uL; Monocyte% 7.8 % (0-10); NRBC Flagged by Analyzer 0 % (0-5); Neutrophil # 3.72 X10^3/uL (2.7-7.7); Neutrophil % 68.9 % (47-70); Platelet Count 201 K/mm3 (150-450); RBC Distribution Width CV 15.3 % (11.6-14.6); RBC Distribution Width SD 54.4 fl (35.1-43.9); Red Blood Count 4.29 M/mm3 (4.2-5.4); White Blood Count 5.4 K/mm3 (4.4-11.0)
[2019-02-02 13:36] LABS: AST(SGOT) 20 U/L (15-37); Alanine Aminotransfer ALT/SGPT 30 U/L (13-56); Albumin, Serum 3.3 g/dL (3.2-5.0); Alkaline Phosphatase 91 U/L (45-117); Anion Gap 9 (5-15); BUN 14 mg/dL (7-18); BUN/Creat Ratio 13.5 RATIO (10-20); Calcium,Total 9.1 mg/dL (8.5-10.1); Chloride 105 mmol/L (98-107); Creatinine, Serum 1.04 mg/dL (0.55-1.02); EST Glomerular Filtration Rate 55 mL/min (>60); Est Glom Filt Rate - Afr Amer 67 mL/min (>60); Globulin 3.2 g/dL (2.2-4.2); Glucose 103 mg/dL (74-106); Potassium 3.6 mmol/L (3.5-5.1); Protein, Total 6.5 g/dL (6.4-8.2); Sodium Level 141 mmol/L (136-145); Thyroid Stim Hormone (TSH) 0.75 uIU/mL (0.358-3.74)
== END ==
LOC: POLAB3 10:18
PROVIDERS: Family Provider Family Medicine Geriatric Medicine; PCP Family Medicine Geriatric Medicine; Visit Provider Family Medicine Geriatric Medicine
DX: E55.9 Vitamin D deficiency, unspecified (principal); I10 Essential (primary) hypertension
CPT/HCPCS: 36415; 80053; 82306; 84443; 85025

== ENCOUNTER → 2019-03-09 10:32 | Outpatient (CLI) | payer MEDICARE, SELFPAY ==
[2018-07-10 15:27] VITALS: BMI 32.8
[2019-03-09 12:22] LABS: Absolute Lymphocyte Count 1.12 X10^3/uL (0.83-4.51); Absolute Neutrophil Count 3.5 X10^3/uL (2.0-7.7); Basophil# 0.04 X10^3/uL; Basophil% 0.8 % (0-1); Eosinophil# 0.13 X10^3/uL; Eosinophils% 2.5 % (0-5); Hematocrit 41.8 % (37-47); Hemoglobin 13.2 g/dL (12.0-15.0); Lymphocyte # 1.12 X10^3/ul (4.0); Lymphocyte % 21.1 % (19-41); Mean Corp Hgb Conc 31.6 g/dL (32-36); Mean Corpuscular Hgb 30.6 pg (27.0-32.0); Mean Corpuscular Volume 96.8 fL (81-99); Mean Platelet Vol. 9.8 fl (6.2-12.0); Monocyte% 9.4 % (0-10); NRBC Flagged by Analyzer 0 % (0-5); Platelet Count 217 K/mm3 (150-450); RBC Distribution Width CV 13.9 % (11.6-14.6); RBC Distribution Width SD 50.3 fl (35.1-43.9); Red Blood Count 4.32 M/mm3 (4.2-5.4); White Blood Count 5.3 K/mm3 (4.4-11.0)
[2019-03-09 12:30] LABS: Vitamin D,25 Hydroxy 35.3 ng/mL (29.95-100.01)
[2019-03-09 12:32] LABS: ALB/GLOB Ratio 0.9 RATIO (0.9-2.4); AST(SGOT) 22 U/L (15-37); Alanine Aminotransfer ALT/SGPT 25 U/L (13-56); Albumin, Serum 3.3 g/dL (3.2-5.0); Alkaline Phosphatase 118 U/L (45-117); Anion Gap 6 (5-15); BUN 14 mg/dL (7-18); BUN/Creat Ratio 13.2 RATIO (10-20); Calcium,Total 9.1 mg/dL (8.5-10.1); Chloride 105 mmol/L (98-107); Creatinine, Serum 1.06 mg/dL (0.55-1.02); EST Glomerular Filtration Rate 54 mL/min (>60); Est Glom Filt Rate - Afr Amer 65 mL/min (>60); Globulin 3.7 g/dL (2.2-4.2); Glucose 93 mg/dL (74-106); Potassium 4.7 mmol/L (3.5-5.1); Sodium Level 139 mmol/L (136-145); Thyroid Stim Hormone (TSH) 2.22 uIU/mL (0.358-3.74)
== END ==
LOC: POLAB3 10:32
PROVIDERS: Family Provider Family Medicine Geriatric Medicine; PCP Family Medicine Geriatric Medicine; Visit Provider Family Medicine Geriatric Medicine
DX: E55.9 Vitamin D deficiency, unspecified (principal); I10 Essential (primary) hypertension
CPT/HCPCS: 36415; 80053; 82306; 84443; 85025

== ENCOUNTER → 2019-06-08 10:49 | Outpatient (CLI) | payer MEDICARE, SELFPAY ==
[2018-07-10 15:27] VITALS: BMI 32.8
--- NOTE | 2019-06-08 10:55 | RAD_ITS ---
STUDY: X-RAY - ABDOMEN/PELVIS REASON FOR EXAM: Female, 74 years old. Diffuse abdominal pain, bloating and diarrhea. TECHNIQUE: AP supine and upright views of the abdomen and pelvis. COMPARISON: None. FINDINGS: Normal visualized lung bases. There are nonspecific gaseous small bowel loops in the mid abdomen. There is mild fecal retention. There is no evidence of free air. The visualized liver, spleen and kidneys are grossly normal in size. Normal soft tissue structures. There is mild dextroscoliosis of the lumbar spine. The patient is status post right hip arthroplasty. RAD/Abd Inc Decub and/or Erect IMPRESSION: Nonspecific gas pattern. Electronically Signed: Abraham Suh MD at 11:16 EST Tel , Service support ,
== END ==
LOC: RAD 10:52
PROVIDERS: PCP Family Medicine Geriatric Medicine; Referring Provider Family Medicine Geriatric Medicine; Visit Provider Family Medicine Geriatric Medicine
DX: R19.7 Diarrhea, unspecified (principal)
CPT/HCPCS: 74019

== ENCOUNTER → 2019-10-29 15:53 | Outpatient (CLI) | payer MEDICARE, SELFPAY ==
[2018-07-10 15:27] VITALS: BMI 32.8
--- NOTE | 2019-10-29 | TISS_PTH ---
PATIENT: JOANIE RAMIREZ LOC: [facility] U#:[id number] AGE/SX: 79/F ROOM: RE10/29/[address]: Dr. Reynold Samayoa MD : 1945 BED: DIS: SPEC #: [id number] RECD: 10/29/19 17:40 STATUS: ZAYDA CELESTE #: [id number] SONYA: 10/29/19 00:[address]: Reynold Samayoa Chi DEPT: SURGICAL PATHOLOGY RECD BY: Dominik Yepez Tissues: Skin of neck, NOS Procedures: Surgery Specimen Level IV HEADER OPERATION: Skin lesion neck/back, shave biopsy PRE-OP DIAGNOSIS: L98.9 TISSUE SUBMITTED: Neck/back MICROSCOPIC DIAGNOSIS Skin lesion neck/back, shave biopsy: Solar elastosis and actinic change. AM:wendy 10/31/19 COMMENT Case has been reviewed in consultation with Dr. Traore who concurs with the above diagnosis. IDC:SJ MICROSCOPIC DESCRIPTION Slides are reviewed. GROSS DESCRIPTION Received in fixative is one container labeled with the patient's name and designated neck/back. The specimen consists of a light quiroz fragment of shaved skin measuring 0.5 x 0.3 x <0.1 cm. The specimen is totally submitted in one cassette. / AM:wendy 10/30/19 TC:5 [facility]: [id number]
[2019-10-29 17:26] LABS: Absolute Lymphocyte Count 1.74 X10^3/uL (0.83-4.51); Absolute Neutrophil Count 2.6 X10^3/uL (2.0-7.7); Basophil# 0.03 X10^3/uL; Basophil% 0.6 % (0-1); Eosinophil# 0.12 X10^3/uL; Eosinophils% 2.4 % (0-5); Hematocrit 42.6 % (37-47); Hemoglobin 13.3 g/dL (12.0-15.0); Lymphocyte # 1.74 X10^3/ul (4.0); Lymphocyte % 34.7 % (19-41); Mean Corp Hgb Conc 31.2 g/dL (32-36); Mean Corpuscular Hgb 29.6 pg (27.0-32.0); Mean Corpuscular Volume 94.9 fL (81-99); Mean Platelet Vol. 9.9 fl (6.2-12.0); Monocyte# 0.48 X10^3/uL; Monocyte% 9.6 % (0-10); NRBC Flagged by Analyzer 0 % (0-5); Neutrophil # 2.63 X10^3/uL (2.7-7.7); Neutrophil % 52.5 % (47-70); Platelet Count 221 K/mm3 (150-450); RBC Distribution Width CV 14.6 % (11.6-14.6); RBC Distribution Width SD 51.1 fl (35.1-43.9); Red Blood Count 4.49 M/mm3 (4.2-5.4)
[2019-10-29 17:44] LABS: Vitamin D,25 Hydroxy 50.9 ng/mL
[2019-10-29 17:53] LABS: ALB/GLOB Ratio 0.8 RATIO (0.9-2.4); AST(SGOT) 18 U/L (15-37); Alanine Aminotransfer ALT/SGPT 23 U/L (13-56); Albumin, Serum 3.3 g/dL (3.2-5.0); Alkaline Phosphatase 129 U/L (45-117); Anion Gap 7 (5-15); BUN 19 mg/dL (7-18); BUN/Creat Ratio 18.1 RATIO (10-20); Chloride 102 mmol/L (98-107); Creatinine, Serum 1.05 mg/dL (0.55-1.02); EST Glomerular Filtration Rate 54 mL/min (>60); Est Glom Filt Rate - Afr Amer 66 mL/min (>60); Globulin 3.9 g/dL (2.2-4.2); Glucose 86 mg/dL (74-106); Potassium 3.8 mmol/L (3.5-5.1); Protein, Total 7.2 g/dL (6.4-8.2); Sodium Level 139 mmol/L (136-145); Thyroid Stim Hormone (TSH) 2.49 uIU/mL (0.358-3.74)
== END ==
PROVIDERS: PCP Family Medicine Geriatric Medicine; Visit Provider Family Medicine Geriatric Medicine
DX: E55.9 Vitamin D deficiency, unspecified (principal); I10 Essential (primary) hypertension
CPT/HCPCS: 36415; 80053; 82306; 84443; 85025; 88305

== ENCOUNTER → 2020-01-28 13:42 | Outpatient (CLI) | payer MEDICARE, SELFPAY ==
[2018-07-10 15:27] VITALS: BMI 32.8
[2020-01-28 17:29] LABS: Absolute Lymphocyte Count 1.76 X10^3/uL (0.83-4.51); Basophil# 0.02 X10^3/uL; Basophil% 0.3 % (0-1); Eosinophil# 0.14 X10^3/uL; Eosinophils% 2.2 % (0-5); Hematocrit 41.8 % (37-47); Hemoglobin 13.1 g/dL (12.0-15.0); Lymphocyte # 1.76 X10^3/ul (4.0); Lymphocyte % 27.6 % (19-41); Mean Corp Hgb Conc 31.3 g/dL (32-36); Mean Corpuscular Hgb 29.6 pg (27.0-32.0); Mean Corpuscular Volume 94.4 fL (81-99); Mean Platelet Vol. 9.8 fl (6.2-12.0); Monocyte% 6.3 % (0-10); NRBC Flagged by Analyzer 0 % (0-5); Neutrophil # 4.03 X10^3/uL (2.7-7.7); Neutrophil % 63.3 % (47-70); Platelet Count 243 K/mm3 (150-450); RBC Distribution Width CV 14.5 % (11.6-14.6); RBC Distribution Width SD 50.4 fl (35.1-43.9); Red Blood Count 4.43 M/mm3 (4.2-5.4); White Blood Count 6.4 K/mm3 (4.4-11.0)
[2020-01-28 18:02] LABS: ALB/GLOB Ratio 1.2 RATIO (0.9-2.4); AST(SGOT) 21 U/L (15-37); Alanine Aminotransfer ALT/SGPT 20 U/L (13-56); Albumin, Serum 3.6 g/dL (3.2-5.0); Alkaline Phosphatase 114 U/L (45-117); Anion Gap 7 (5-15); BUN 14 mg/dL (7-18); BUN/Creat Ratio 14.1 RATIO (10-20); Calcium,Total 8.9 mg/dL (8.5-10.1); Chloride 104 mmol/L (98-107); EST Glomerular Filtration Rate 58 mL/min (>60); Est Glom Filt Rate - Afr Amer 70 mL/min (>60); Globulin 3.1 g/dL (2.2-4.2); Glucose 83 mg/dL (74-106); Potassium 3.7 mmol/L (3.5-5.1); Protein, Total 6.7 g/dL (6.4-8.2); Sodium Level 140 mmol/L (136-145); Thyroid Stim Hormone (TSH) 1.36 uIU/mL (0.358-3.74)
[2020-01-28 18:24] LABS: Vitamin D,25 Hydroxy 57.3 ng/mL
== END ==
PROVIDERS: PCP Family Medicine Geriatric Medicine; Visit Provider Family Medicine Geriatric Medicine
DX: E55.9 Vitamin D deficiency, unspecified (principal); I10 Essential (primary) hypertension
CPT/HCPCS: 36415; 80053; 82306; 84443; 85025

== ENCOUNTER → 2020-03-13 13:31 | Outpatient (CLI) | payer MEDICARE, SELFPAY ==
[2018-07-10 15:27] VITALS: BMI 32.8
[2020-03-13 17:38] LABS: Absolute Lymphocyte Count 1.85 X10^3/uL (0.83-4.51); Absolute Neutrophil Count 4.2 X10^3/uL (2.0-7.7); Basophil# 0.02 X10^3/uL; Basophil% 0.3 % (0-1); Eosinophil# 0.13 X10^3/uL; Eosinophils% 1.9 % (0-5); Hematocrit 41.5 % (37-47); Lymphocyte # 1.85 X10^3/ul (4.0); Lymphocyte % 27.2 % (19-41); Mean Corp Hgb Conc 31.3 g/dL (32-36); Mean Corpuscular Hgb 29.7 pg (27.0-32.0); Mean Platelet Vol. 9.9 fl (6.2-12.0); Monocyte# 0.59 X10^3/uL; Monocyte% 8.7 % (0-10); NRBC Flagged by Analyzer 0 % (0-5); Neutrophil # 4.19 X10^3/uL (2.7-7.7); Neutrophil % 61.8 % (47-70); Platelet Count 251 K/mm3 (150-450); RBC Distribution Width CV 14.3 % (11.6-14.6); RBC Distribution Width SD 49.9 fl (35.1-43.9); Red Blood Count 4.37 M/mm3 (4.2-5.4); White Blood Count 6.8 K/mm3 (4.4-11.0)
[2020-03-13 18:03] LABS: ALB/GLOB Ratio 0.9 RATIO (0.9-2.4); AST(SGOT) 18 U/L (15-37); Alanine Aminotransfer ALT/SGPT 25 U/L (13-56); Albumin, Serum 3.5 g/dL (3.2-5.0); Alkaline Phosphatase 128 U/L (45-117); Anion Gap 8 (5-15); BUN 18 mg/dL (7-18); BUN/Creat Ratio 16.7 RATIO (10-20); Chloride 104 mmol/L (98-107); Creatinine, Serum 1.08 mg/dL (0.55-1.02); EST Glomerular Filtration Rate 53 mL/min (>60); Est Glom Filt Rate - Afr Amer 64 mL/min (>60); Globulin 3.7 g/dL (2.2-4.2); Glucose 133 mg/dL (74-106); Potassium 3.8 mmol/L (3.5-5.1); Protein, Total 7.2 g/dL (6.4-8.2); Sodium Level 142 mmol/L (136-145); Thyroid Stim Hormone (TSH) 1.26 uIU/mL (0.358-3.74)
== END ==
PROVIDERS: PCP Family Medicine Geriatric Medicine; Visit Provider Family Medicine Geriatric Medicine
DX: E55.9 Vitamin D deficiency, unspecified (principal); I10 Essential (primary) hypertension
CPT/HCPCS: 36415; 80053; 82306; 84443; 85025

== ENCOUNTER → 2020-05-27 07:34 | Outpatient (CLI) | payer MEDICARE, SELFPAY ==
[2018-07-10 15:27] VITALS: BMI 32.8
--- NOTE | 2020-05-27 07:38 | BI_ITS ---
MAMMOGRAPHY - BILATERAL SCREENING REASON FOR EXAM: Female, 75 years old. Routine annual screening examination. PERTINENT HISTORY: Non-contributory. TECHNIQUE: Digital bilateral breast ildefonso (3D mammographic acquisition) in the CC and MLO projections. 2-D mediolateral oblique (MLO) and craniocaudad (CC) views of both breasts were obtained. CAD: Full Field Digital Mammography with Computer Added Detection was performed. COMPARISON: Comparison is made with prior examination dated 05/24/2017. FINDINGS: Breast Composition: The breasts are almost entirely fatty. There are no dominant masses or suspicious calcifications. No other significant abnormalities are identified. There has been no significant change since the prior study. BI/SCRN MAMM (CAD)W/ILDEFONSO BILAT IMPRESSION: Stable bilateral screening mammogram. Yearly follow-up mammogram recommended. (A) ASSESSMENT CATEGORY: BIRADS Category 1: Negative. A letter regarding these results will be sent to the patient by the facility within 30 days. Approximately 10% of breast cancers are not detected by mammography. A normal mammogram should not delay biopsy of a clinically suspicious abnormality. [id number] Electronically Signed: Osmany Calvert MD at 8:38 EST , Service support ,
== END ==
PROVIDERS: PCP Family Medicine Geriatric Medicine; Referring Provider Family Medicine Geriatric Medicine; Visit Provider Family Medicine Geriatric Medicine
DX: Z12.31 Encounter for screening mammogram for malignant neoplasm of breast (principal)
CPT/HCPCS: 77063; 77067

== ENCOUNTER → 2020-06-12 11:06 | Outpatient (CLI) | payer MEDICARE, SELFPAY ==
[2018-07-10 15:27] VITALS: BMI 32.8
--- NOTE | 2020-06-12 12:00 | RAD_ITS ---
HISTORY: Low back pain for 2 weeks COMPARISON: Previous lumbar spine series is from April 13, 2018. FINDINGS: # of images incl. paperwork: 3 XR Spine Lumbar 2 or 3 Views: Dexterous scoliosis is more pronounced. Degenerative disease with sclerosis and left-sided enthesophytes are more prominent at the L3-L4 level than on the previous study. Bone mineral density is diminished. Right total hip arthroplasty. Multilevel degenerative malalignment. Severe atherosclerotic disease within the abdominal aorta persists. RAD/Lumbar Spine 2 or 3 Views IMPRESSION: Multilevel degenerative disease and facet arthropathy. Mild dextroscoliosis. Disease has progressed since April 13, 2018. at 2223 Reported and signed by: Jose Wing MD Electronically Signed: Jose Wing MD at 22:22 EST Tel , Service support ,
[2020-06-12 12:10] LABS: Absolute Lymphocyte Count 1.51 X10^3/uL (0.83-4.51); Absolute Neutrophil Count 3.6 X10^3/uL (2.0-7.7); Basophil# 0.02 X10^3/uL; Basophil% 0.3 % (0-1); Eosinophil# 0.13 X10^3/uL; Eosinophils% 2.2 % (0-5); Hematocrit 41.4 % (37-47); Hemoglobin 13.2 g/dL (12.0-15.0); Lymphocyte # 1.51 X10^3/ul (4.0); Mean Corp Hgb Conc 31.9 g/dL (32-36); Mean Corpuscular Hgb 29.7 pg (27.0-32.0); Mean Corpuscular Volume 93.2 fL (81-99); Mean Platelet Vol. 9.8 fl (6.2-12.0); Monocyte# 0.51 X10^3/uL; Monocyte% 8.8 % (0-10); NRBC Flagged by Analyzer 0 % (0-5); Neutrophil # 3.61 X10^3/uL (2.7-7.7); Neutrophil % 62.4 % (47-70); Platelet Count 208 K/mm3 (150-450); RBC Distribution Width CV 14.6 % (11.6-14.6); RBC Distribution Width SD 50.5 fl (35.1-43.9); Red Blood Count 4.44 M/mm3 (4.2-5.4); White Blood Count 5.8 K/mm3 (4.4-11.0)
[2020-06-12 12:29] LABS: Vitamin D,25 Hydroxy 37.1 ng/mL
[2020-06-12 12:33] LABS: AST(SGOT) 19 U/L (15-37); Alanine Aminotransfer ALT/SGPT 23 U/L (13-56); Albumin, Serum 3.5 g/dL (3.2-5.0); Alkaline Phosphatase 132 U/L (45-117); Anion Gap 8 (5-15); BUN 18 mg/dL (7-18); BUN/Creat Ratio 16.4 RATIO (10-20); Calcium,Total 9.2 mg/dL (8.5-10.1); Chloride 103 mmol/L (98-107); EST Glomerular Filtration Rate 51 mL/min (>60); Est Glom Filt Rate - Afr Amer 62 mL/min (>60); Globulin 3.5 g/dL (2.2-4.2); Glucose 138 mg/dL (74-106); Potassium 3.4 mmol/L (3.5-5.1); Sodium Level 139 mmol/L (136-145); Thyroid Stim Hormone (TSH) 1.41 uIU/mL (0.358-3.74)
== END ==
LOC: POLAB3 11:06 → RAD 11:57
PROVIDERS: PCP Family Medicine Geriatric Medicine; Visit Provider Family Medicine Geriatric Medicine
DX: E55.9 Vitamin D deficiency, unspecified (principal); I10 Essential (primary) hypertension; M54.5 Low back pain
CPT/HCPCS: 36415; 72100; 80053; 82306; 84443; 85025

== ENCOUNTER → 2020-06-23 10:09 | Outpatient (CLI) | payer MEDICARE, SELFPAY ==
[2018-07-10 15:27] VITALS: BMI 32.8
--- NOTE | 2020-06-23 10:27 | ART_ITS ---
Reason For Study: PAD Procedure A bilateral lower extremity continuous wave Doppler with analog waveform analysis and ankle brachial indexes. Left Segmental Pressures Left brachial= 221mmHg. Left posterior tibial artery = >254mmHg. Left dorsalis pedis artery = 211mmHg. Left digit = 156 mmHg. The left dorsalis pedis waveforms are triphasic. The left posterior tibial artery waveforms are triphasic. Right Segmental Pressures Right brachial= 220mmHg. Right posterior tibial artery = 238mmHg. Right dorsalis pedis artery = 247mmHg. Right digit = 161 mmHg. The right dorsalis pedis waveforms are triphasic. The right posterior tibial artery waveforms are triphasic. Indices The right ankle brachial index by the dorsalis pedis is 1.12. The right ankle brachial index by the posterior tibial artery is 1.08. The right digital-brachial index is 0.73. The left ankle brachial index by the dorsalis pedis is 0.95. The left ankle brachial index by the posterior tibial artery is NC. The left digital-brachial index is 0.71. Interpretation Summary Triphasic Doppler waveforms are noted at ankle level bilaterally. Pulse-volume recording waveform amplitudes are diminished at digital level bilaterally, though satisfactory at ankle level bilaterally. Resting ankle-brachial indices are normal bilaterally. Digital-brachial indices are normal bilaterally. There is no evidence of significant arterial occlusive disease in the lower extremities bilaterally. The patient's systolic blood pressure was noted to be severely elevated. The patient's primary care physician was notified. Ordering Physician: Reynold Samayoa Referring Physician: Reynold Samayoa Chi Performed By: Jenifer Teresa RVT
--- NOTE | 2020-06-23 10:35 | ART_ITS ---
Reason For Study: PAD Procedure A bilateral upper extremity continuous wave Doppler with analog waveform analysis and segmental pressures. Left Segmental Pressures Left brachial= 221mmHg. Left ulnar= 221mmHg. Left radial= 214mmHg. Left digit = 172 mmHg. The left radial waveforms are triphasic. The left ulnar waveforms are triphasic. Right Segmental Pressures Right brachial= 220mmHg. Right ulnar= 211mmHg. Right radial= 229mmHg. Right digit = 175 mmHg. The right radial waveforms are triphasic. The right ulnar waveforms are triphasic. Indices Right wrist-brachial index by the ulnar artery is 0.95. Right wrist-brachial index by the radial artery is 1.04. The right digital-brachial index is 0.79. Left wrist-brachial index by the ulnar artery is 1.00. Left wrist-brachial index by the radial artery is 0.97. The left digital-brachial index is 0.78. Interpretation Summary Triphasic Doppler waveforms are noted at wrist level bilaterally. Pulse-volume recordings appear satisfactory at all levels bilaterally. Wrist-brachial indices and digital-brachial indices appear satisfactory bilaterally. There is no evidence of significant arterial occlusive disease in the upper extremities bilaterally. Systolic pressures in the upper extremities are severely elevated. The patient's primary care physician was notified. Ordering Physician: Reynold Samayoa Referring Physician: Reynold Samayoa Chi Performed By: Jenifer Teresa RVT
[2020-06-23 11:27] LABS: Anion Gap 7 (5-15); BUN 18 mg/dL (7-18); BUN/Creat Ratio 16.7 RATIO (10-20); Calcium,Total 9.6 mg/dL (8.5-10.1); Chloride 101 mmol/L (98-107); Creatinine, Serum 1.08 mg/dL (0.55-1.02); EST Glomerular Filtration Rate 53 mL/min (>60); Est Glom Filt Rate - Afr Amer 64 mL/min (>60); Glucose 102 mg/dL (74-106); Potassium 3.8 mmol/L (3.5-5.1); Sodium Level 138 mmol/L (136-145)
[2020-06-23 12:38] LABS: Absolute Lymphocyte Count 1.64 X10^3/uL (0.83-4.51); Absolute Neutrophil Count 5.6 X10^3/uL (2.0-7.7); Basophil# 0.02 X10^3/uL; Basophil% 0.3 % (0-1); Eosinophil# 0.07 X10^3/uL; Eosinophils% 0.9 % (0-5); Hematocrit 45.4 % (37-47); Lymphocyte # 1.64 X10^3/ul (4.0); Lymphocyte % 20.7 % (19-41); Mean Corp Hgb Conc 30.8 g/dL (32-36); Mean Corpuscular Hgb 28.9 pg (27.0-32.0); Mean Corpuscular Volume 93.8 fL (81-99); Mean Platelet Vol. 9.3 fl (6.2-12.0); Monocyte# 0.59 X10^3/uL; Monocyte% 7.4 % (0-10); NRBC Flagged by Analyzer 0 % (0-5); Neutrophil # 5.57 X10^3/uL (2.7-7.7); Neutrophil % 70.3 % (47-70); Platelet Count 269 K/mm3 (150-450); RBC Distribution Width SD 51.9 fl (35.1-43.9); Red Blood Count 4.84 M/mm3 (4.2-5.4); White Blood Count 7.9 K/mm3 (4.4-11.0)
[2020-06-23 12:51] LABS: CPK Total, Creatine Kinase 53 U/L (26-192); Thyroid Stim Hormone (TSH) 0.94 uIU/mL (0.358-3.74)
[2020-06-24 14:07] LABS: Myoglobin, Serum 44 ng/mL (25-58)
== END ==
PROVIDERS: PCP Family Medicine Geriatric Medicine; Referring Provider Family Medicine Geriatric Medicine; Visit Provider Family Medicine Geriatric Medicine
DX: I73.9 Peripheral vascular disease, unspecified (principal); E87.6 Hypokalemia; R07.9 Chest pain, unspecified; R53.83 Other fatigue
CPT/HCPCS: 36415; 80048; 82550; 83874; 84443; 84484; 85025; 93922

== ENCOUNTER → 2020-09-11 11:43 | Outpatient (CLI) | payer MEDICARE, SELFPAY ==
[2018-07-10 15:27] VITALS: BMI 32.8
[2020-09-11 12:14] LABS: Absolute Lymphocyte Count 1.75 X10^3/uL (0.83-4.51); Absolute Neutrophil Count 3.9 X10^3/uL (2.0-7.7); Basophil# 0.04 X10^3/uL; Basophil% 0.6 % (0-1); Eosinophil# 0.12 X10^3/uL; Eosinophils% 1.9 % (0-5); Hemoglobin 13.7 g/dL (12.0-15.0); Lymphocyte # 1.75 X10^3/ul (0.83-4.51); Lymphocyte % 27.9 % (19-41); Mean Corp Hgb Conc 32.6 g/dL (32-36); Mean Platelet Vol. 9.6 fl (6.2-12.0); Monocyte# 0.49 X10^3/uL; Monocyte% 7.8 % (0-10); NRBC Flagged by Analyzer 0 % (0-5); Neutrophil # 3.87 X10^3/uL (2.7-7.7); Neutrophil % 61.6 % (47-70); Platelet Count 229 K/mm3 (150-450); RBC Distribution Width SD 52.9 fl (35.1-43.9); Red Blood Count 4.42 M/mm3 (4.2-5.4); White Blood Count 6.3 K/mm3 (4.4-11.0)
[2020-09-11 12:31] LABS: Vitamin D,25 Hydroxy 28.9 ng/mL
[2020-09-11 12:42] LABS: AST(SGOT) 14 U/L (15-37); Alanine Aminotransfer ALT/SGPT 25 U/L (13-56); Albumin, Serum 3.4 g/dL (3.2-5.0); Alkaline Phosphatase 134 U/L (45-117); Anion Gap 8 (5-15); BUN 22 mg/dL (7-18); BUN/Creat Ratio 24.9 RATIO (10-20); Chloride 102 mmol/L (98-107); Creatinine, Serum 0.88 mg/dL (0.55-1.02); EST Glomerular Filtration Rate 66 mL/min (>60); Est Glom Filt Rate - Afr Amer 80 mL/min (>60); Globulin 3.4 g/dL (2.2-4.2); Glucose 91 mg/dL (74-106); Potassium 4.1 mmol/L (3.5-5.1); Protein, Total 6.8 g/dL (6.4-8.2); Sodium Level 141 mmol/L (136-145)
== END ==
PROVIDERS: PCP Family Medicine Geriatric Medicine; Visit Provider Family Medicine Geriatric Medicine
DX: E55.9 Vitamin D deficiency, unspecified (principal); I10 Essential (primary) hypertension
CPT/HCPCS: 36415; 80053; 82306; 84443; 85025

== ENCOUNTER → 2020-12-11 09:31 | Outpatient (CLI) | payer MEDICARE, SELFPAY ==
[2018-07-10 15:27] VITALS: BMI 32.8
[2020-12-11 12:35] LABS: Absolute Lymphocyte Count 1.43 X10^3/uL (0.83-4.51); Absolute Neutrophil Count 4.1 X10^3/uL (2.0-7.7); Basophil# 0.03 X10^3/uL; Basophil% 0.5 % (0-1); Eosinophils% 1.6 % (0-5); Hematocrit 42.8 % (37-47); Hemoglobin 14.1 g/dL (12.0-15.0); Lymphocyte # 1.43 X10^3/ul (0.83-4.51); Lymphocyte % 23.1 % (19-41); Mean Corp Hgb Conc 32.9 g/dL (32-36); Mean Corpuscular Volume 97.1 fL (81-99); Mean Platelet Vol. 9.8 fl (6.2-12.0); Monocyte# 0.54 X10^3/uL; Monocyte% 8.7 % (0-10); NRBC Flagged by Analyzer 0 % (0-5); Neutrophil # 4.07 X10^3/uL (2.7-7.7); Neutrophil % 65.8 % (47-70); Platelet Count 243 K/mm3 (150-450); RBC Distribution Width SD 51.1 fl (35.1-43.9); Red Blood Count 4.41 M/mm3 (4.2-5.4); White Blood Count 6.2 K/mm3 (4.4-11.0)
[2020-12-11 12:50] LABS: Vitamin D,25 Hydroxy 39.3 ng/mL
[2020-12-11 13:00] LABS: ALB/GLOB Ratio 0.9 RATIO (0.9-2.4); AST(SGOT) 17 U/L (15-37); Alanine Aminotransfer ALT/SGPT 29 U/L (13-56); Albumin, Serum 3.2 g/dL (3.2-5.0); Alkaline Phosphatase 130 U/L (45-117); Anion Gap 9 (5-15); BUN 18 mg/dL (7-18); Calcium,Total 9.1 mg/dL (8.5-10.1); Chloride 105 mmol/L (98-107); Creatinine, Serum 0.95 mg/dL (0.55-1.02); EST Glomerular Filtration Rate 61 mL/min (>60); Est Glom Filt Rate - Afr Amer 74 mL/min (>60); Globulin 3.7 g/dL (2.2-4.2); Glucose 103 mg/dL (74-106); Protein, Total 6.9 g/dL (6.4-8.2); Sodium Level 140 mmol/L (136-145); Thyroid Stim Hormone (TSH) 1.54 uIU/mL (0.358-3.74)
== END ==
PROVIDERS: PCP Family Medicine Geriatric Medicine; Visit Provider Family Medicine Geriatric Medicine
DX: E55.9 Vitamin D deficiency, unspecified (principal); I10 Essential (primary) hypertension
CPT/HCPCS: 36415; 80053; 82306; 84443; 85025

== ENCOUNTER → 2021-02-12 15:53 | Outpatient (CLI) | payer MEDICARE, SELFPAY | PROVIDERS: PCP Family Medicine Geriatric Medicine; Visit Provider Family Medicine Geriatric Medicine | DX: N39.0 Urinary tract infection, site not specified (principal) | CPT/HCPCS: 87086; 87088 ==

== ENCOUNTER → 2021-03-09 15:07 | Outpatient (CLI) | payer MEDICARE, SELFPAY | LOC: POLAB3 15:15 → LABSPEC 15:19 | PROVIDERS: PCP Family Medicine Geriatric Medicine; Visit Provider Family Medicine Geriatric Medicine | DX: R53.83 Other fatigue (principal); N39.0 Urinary tract infection, site not specified | CPT/HCPCS: 87086; 87088 ==

== ENCOUNTER → 2021-03-19 11:09 | Outpatient (CLI) | payer MEDICARE, SELFPAY ==
[2021-03-19 11:29] LABS: Absolute Lymphocyte Count 1.17 X10^3/uL (0.83-4.51); Absolute Neutrophil Count 3.8 X10^3/uL (2.0-7.7); Basophil# 0.02 X10^3/uL; Basophil% 0.4 % (0-1); Eosinophil# 0.09 X10^3/uL; Eosinophils% 1.6 % (0-5); Hematocrit 37.6 % (37-47); Hemoglobin 12.1 g/dL (12.0-15.0); Lymphocyte # 1.17 X10^3/ul (0.83-4.51); Lymphocyte % 21.1 % (19-41); Mean Corp Hgb Conc 32.2 g/dL (32-36); Mean Corpuscular Hgb 30.2 pg (27.0-32.0); Mean Corpuscular Volume 93.8 fL (81-99); Mean Platelet Vol. 9.2 fl (6.2-12.0); Monocyte# 0.43 X10^3/uL; Monocyte% 7.8 % (0-10); NRBC Flagged by Analyzer 0 % (0-5); Neutrophil % 68.6 % (47-70); Platelet Count 267 K/mm3 (150-450); RBC Distribution Width CV 13.3 % (11.6-14.6); RBC Distribution Width SD 46.1 fl (35.1-43.9); Red Blood Count 4.01 M/mm3 (4.2-5.4); White Blood Count 5.5 K/mm3 (4.4-11.0)
[2021-03-19 11:51] LABS: Vitamin D,25 Hydroxy 43.9 ng/mL
[2021-03-19 11:52] LABS: ALB/GLOB Ratio 0.7 RATIO (0.9-2.4); AST(SGOT) 20 U/L (15-37); Alanine Aminotransfer ALT/SGPT 24 U/L (13-56); Alkaline Phosphatase 126 U/L (45-117); Anion Gap 9 (5-15); BUN 18 mg/dL (7-18); BUN/Creat Ratio 16.4 RATIO (10-20); Calcium,Total 8.8 mg/dL (8.5-10.1); Chloride 100 mmol/L (98-107); EST Glomerular Filtration Rate 51 mL/min (>60); Est Glom Filt Rate - Afr Amer 62 mL/min (>60); Globulin 4.2 g/dL (2.2-4.2); Glucose 99 mg/dL (74-106); Potassium 3.7 mmol/L (3.5-5.1); Protein, Total 7.2 g/dL (6.4-8.2); Sodium Level 138 mmol/L (136-145); Thyroid Stim Hormone (TSH) 1.14 uIU/mL (0.358-3.74)
== END ==
PROVIDERS: PCP Family Medicine Geriatric Medicine; Visit Provider Family Medicine Geriatric Medicine
DX: E55.9 Vitamin D deficiency, unspecified (principal); I10 Essential (primary) hypertension; N39.0 Urinary tract infection, site not specified
CPT/HCPCS: 36415; 80053; 82306; 84443; 85025; 87086; 87088; 87186

== ENCOUNTER → 2021-10-12 | Outpatient (CLI) | payer MEDICARE, SELFPAY ==
[2021-10-12 11:27] LABS: Absolute Neutrophil Count 2.6 X10^3/uL (2.0-7.7); Basophil# 0.02 X10^3/uL; Basophil% 0.5 % (0-1); Eosinophil# 0.12 X10^3/uL; Eosinophils% 2.8 % (0-5); Hematocrit 31.6 % (37-47); Lymphocyte % 25.4 % (19-41); Mean Corp Hgb Conc 31.6 g/dL (32-36); Mean Corpuscular Hgb 35.7 pg (27.0-32.0); Mean Corpuscular Volume 112.9 fL (81-99); Mean Platelet Vol. 10.2 fl (6.2-12.0); Monocyte# 0.49 X10^3/uL; Monocyte% 11.3 % (0-10); NRBC Flagged by Analyzer 0 % (0-5); Neutrophil # 2.59 X10^3/uL (2.7-7.7); Neutrophil % 59.8 % (47-70); Platelet Count 185 K/mm3 (150-450); RBC Distribution Width SD 62.6 fl (35.1-43.9); White Blood Count 4.3 K/mm3 (4.4-11.0)
[2021-10-12 12:00] LABS: ALB/GLOB Ratio 0.9 RATIO (0.9-2.4); AST(SGOT) 16 U/L (15-37); Alanine Aminotransfer ALT/SGPT 21 U/L (13-56); Albumin, Serum 3.5 g/dL (3.2-5.0); Alkaline Phosphatase 114 U/L (45-117); Anion Gap 9 (5-15); BUN 19 mg/dL (7-18); BUN/Creat Ratio 16.4 RATIO (10-20); Calcium,Total 9.2 mg/dL (8.5-10.1); Chloride 103 mmol/L (98-107); Creatinine, Serum 1.16 mg/dL (0.55-1.02); EST Glomerular Filtration Rate 48 mL/min (>60); Est Glom Filt Rate - Afr Amer 58 mL/min (>60); Globulin 3.7 g/dL (2.2-4.2); Glucose 102 mg/dL (74-106); Potassium 3.7 mmol/L (3.5-5.1); Protein, Total 7.2 g/dL (6.4-8.2); Sodium Level 138 mmol/L (136-145); Thyroid Stim Hormone (TSH) 0.64 uIU/mL (0.358-3.74)
== END | disposition home or self-care (01) ==
PROVIDERS: PCP Family Medicine Geriatric Medicine; Referring Provider Family Medicine Geriatric Medicine; Visit Provider Family Medicine Geriatric Medicine
DX: E55.9 Vitamin D deficiency, unspecified (principal); I10 Essential (primary) hypertension
CPT/HCPCS: 36415; 80053; 82306; 84443; 85025

== ENCOUNTER → 2022-02-24 | Outpatient (CLI) | payer MEDICARE, SELFPAY ==
--- NOTE | 2022-02-24 12:50 | CT_ITS ---
STUDY: CT CHEST, ABDOMEN T PELVIS WITH CONTRAST REASON FOR EXAM: Female, 76 years old. Known ovarian carcinoma RADIATION DOSAGE (If Supplied By Facility): CTDIvol = ( 12.47 ) mGy, DLP = ( 1120.24 ) mGycm TECHNIQUE: Transaxial imaging was performed following intravenous administration of IV 100mL Isovue-300. Oral contrast also administered Individualized dose optimization techniques were used for this CT. COMPARISON: 2016 FINDINGS: CHEST Thyroid gland is unremarkable Lung windows show underlying emphysema with bleb formation in both lung [place]. There is no organized infiltrate or effusion. There is a 2 small to characterize 4 mm noncalcified nodule in the left lower lobe on axial image 47, there is evidence of chronic bronchitis and nonspecific pleural thickening. Normal heart and pericardium. No calcified coronary vessels. Scattered subcentimeter in short axis dimension axillary and mediastinal lymph nodes. Normal hilar regions. Normal unenhanced pulmonary arteries. Normal aorta arch and descending thoracic aorta. There are multi-level degenerative changes of the thoracic spine. ABDOMEN Normal liver. Normal gallbladder and extrahepatic biliary system. Normal spleen. Normal pancreas. Normal bilateral adrenal glands. Right kidney shows atrophic change without a discrete lesion or cyst, left kidney is normal. Normal visualized stomach. Normal small intestine. Scattered colonic diverticula noted without CT evidence of acute diverticulitis. The appendix is visualized and appears normal. Appendix seen on coronal recon images 70 through 74 There is diffuse atherosclerotic calcification of the abdominal aorta, without a demonstrated aneurysm. Normal inferior vena cava. Normal retroperitoneum. Normal abdominal wall. There are diffuse degenerative changes of the visualized lumbar spine. PELVIS Normal urinary bladder. Previous hysterectomy. There is no pelvic fluid. There is no pelvic lymphadenopathy or mass lesion. Normal visualized pelvic arteries. CT/CT Chest, Abd, Pel w/Contrast IMPRESSION: Underlying emphysema without a superimposed acute pulmonary process, there is a small 4 mm noncalcified nodule in the periphery of the left lower lobe on axial image 47. Six-month follow-up recommended to assess stability. No pleural or pericardial effusions, no suspicious adenopathy No acute solid organ abnormality, atrophic changes of the right kidney Diffuse atherosclerosis Colonic diverticula, no CT evidence of acute diverticulitis. Normal appendix visualized No free peritoneal fluid, air, or suspicious adenopathy Degenerative bony changes Electronically Signed: Jak Paz MD at 13:32 EDT ,
[2022-02-24 13:20] LABS: CREATININE FINGERSTICK < 0.9 mg/dL (0.55-1.02); EGFR FINGERSTICK > 60.0000 mL/min (>60)
[2022-02-24] MEDS: 0.9% Saline Lock 10 ML Syringe IV (13:39)
== END | disposition home or self-care (01) ==
PROVIDERS: PCP Family Medicine Geriatric Medicine; Referring Provider Nurse Practitioner Gerontology; Visit Provider Nurse Practitioner Gerontology
DX: C56.3 Malignant neoplasm of bilateral ovaries (principal)
CPT/HCPCS: 71260; 74177; Q9967; A4216

== ENCOUNTER 2022-03-21 15:07 | Emergency (ER) | payer MEDICARE, SELFPAY ==
[2022-03-21 15:09] VITALS: BP 235/91; PULSE 71; RESP 19; TEMP 36.8; O2SAT 93; BMI 28.9
--- NOTE | 2022-03-21 15:27 | ED.VIS.GI ---
HPI HPI - GI History of Present Illness Chief Complaint: Abd Pain Informant: patient Abdominal Pain/Flank Pain Onset: Yesterday Context: Gradual Onset Timing: Continuous Quality: Sharp Location: Diffuse Worsened by: - (Standing, sitting upright) Relieved by: Nothing Nausea/Vomiting/Emesis GI Symptom: Positive for Nausea; Negative for Vomiting Diarrhea/Melena/Hematochezia GI Symptom: Negative for Diarrhea, Melena or Hematochezia Associated Symptoms Associated Symptoms: Negative for Dysuria, Frequency or Hematuria Narrative Narrative: Patient presents with abdominal pain that began yesterday. Patient states he gradually got worse yesterday. Patient states it has been constant. Patient describes the pain as sharp. Patient states that it initially was cramping and then became sharp. Patient states it is diffuse across her abdomen. Patient states it is worse whenever she stands or sits. Patient states nothing makes it better. Patient admits to nausea but denies any vomiting. Patient denies any diarrhea, melena, or hematochezia. Patient denies any dysuria or hematuria. Patient denies any urinary frequency. Patient states her pain radiates into her back. [facility] Medical History (Updated 03/21/22 @ 18:[address] Eligio Winkler, ) DDD (degenerative disc disease), lumbar Home Medications cholecalciferol (vitamin D3) 25 mcg (1,000 unit) tablet (Vitamin D3) 1,000 unit PO DAILY 03/13/15 [History Last Taken Unknown] nitroglycerin 0.4 mg sublingual tablet 0.4 mg sublingual Q5M PRN Chest Pain 03/13/15 [History Last Taken Unknown] omeprazole 20 mg capsule,delayed release 20 mg PO DAILY 03/13/15 [History Last Taken 03/24/15 06:00] acetaminophen 325 mg tablet (Tylenol) 650 mg PO Q4H PRN PRN Mild Pain (0-3/10)/Headache ##0 04/08/15 [Rx Last Taken Unknown] aspirin 81 mg tablet 81 mg PO DAILY 03/21/22 [History Last Taken Unknown] gabapentin 100 mg capsule 100 mg PO 4X/DAY 03/21/22 [History Last Taken Unknown] losartan 50 mg tablet 50 mg PO DAILY bp 03/21/22 [History Last Taken Unknown] venlafaxine 75 mg capsule,extended release 24 hr 75 mg PO DAILY 03/21/22 [History Last Taken Unknown] Allergy/AdvReac Type Severity Reaction Status Date / Time Penicillins AdvReac Upset Verified 11/12/17 22:31 Stomach Surgical History (Updated 03/21/22 @ 15:[address] Eligio Winkler DO) History of hysterectomy S/P total hip arthroplasty Social History Smoking Status: Former smoker alcohol intake: never substance use type: does not use what type of physical activity do you participate in: none ROS ROS ED Constitutional Constitutional ED: Denies chills or fever(s) Eyes Eyes: Denies blurry vision or change in vision ENT ENT ED: Denies rhinorrhea or sore throat Cardiovascular Cardiovascular: Denies chest pain or palpitations Respiratory/Chest Respiratory/Chest: Denies cough or dyspnea Gastrointestinal Gastrointestinal: Reports abdominal pain and nausea; Denies diarrhea, melena or vomiting Genitourinary Genitourinary ED: Denies dysuria or hematuria Musculoskeletal Musculoskeletal: Reports back pain; Denies neck pain Integumentary Denies abscess or rash Neurologic Neurologic: Denies headache(s) or weakness Allergic/Immunologic Allergic/Immunologic ED: Denies mouth swelling or urticaria EXAM Physical Exam Const Vital Signs: 03/21/22 15:09 03/21/22 16:50 03/21/22 18:18 Temperature 98.3 F Temperature Source Temporal Pulse Rate 71 67 69 Respiratory Rate 19 H 24 H 17 Blood Pressure 235/91 H 202/89 H 202/86 H Blood Pressure Mean 139 126 124 Pulse Ox 93 92 88 Oxygen Delivery Method Room Air Room Air Room Air Oxygen Flow Rate (L/min) 03/21/22 18:20 03/21/22 18:30 Temperature Temperature Source Pulse Rate 68 Respiratory Rate 20 H Blood Pressure 179/82 H Blood Pressure Mean 114 Pulse Ox 97 96 Oxygen Delivery Method Nasal Cannula Nasal Cannula Oxygen Flow Rate (L/min) 2 2 Positive well nourished and well developed General Appearance ED: well developed and NAD HEENT Reports moist mucous membranes Neck supple and no JVD Resp normal respiratory effort and clear to auscultation bilaterally Cardio regular rate, regular rhythm and no murmurs GI normal to inspection, nondistended, normoactive bowel sounds Palpation: soft and tender epigastric, LLQ, RLQ, LUQ, RUQ, periumbilical and suprapubic; Negative for guarding or rebound tenderness present Extremity normal to inspection General Extremety ED: Negative for edema or tenderness General Extremity: Negative for edema Neuro oriented x3, CN's II-XII intact bilaterally and no sensory deficits noted Sensorium / Orientation: alert Motor Exam: strength 5/5 throughout Psych mental status grossly normal Skin no rashes or lesions noted MDM MDM MDM Narrative Medical decision making narrative: Patient was given morphine and Zofran initially. CBC showed a mild anemia with a hemoglobin of 11.5 and hematocrit of 36.0. Platelets were 115. Comprehensive metabolic profile was essentially within normal limits. Lactate was normal. Lipase was normal. Urinalysis does not show any evidence of urinary tract infection or hematuria. CT scan of the abdomen and pelvis was obtained. There are no masses or bowel obstruction. There is no free fluid or free air. There is no evidence of diverticulitis or appendicitis. There is moderate retained formed stool throughout the colon. There are no other acute abnormalities. This was interpreted by the radiologist and reviewed by myself. Patient was advised of her findings. Patient was offered an enema here. Patient states she would prefer to go home. Patient was instructed to use MiraLAX at home. Patient was instructed to follow-up with her primary care physician in 3 to 5 days. Patient was instructed return if worse in any way. Patient understood and was agreeable with the plan. All questions were answered. Lab Data Attestation: I reviewed the patient's lab results. Labs: Laboratory Results - last 24 hr 03/21/22 03/21/22 03/21/22 15:47 15:47 15:47 WBC 5.1 RBC 3.43 L Hgb 11.5 L Hct 36.0 L MCV 105.0 H MCH 33.5 H MCHC 31.9 L RDW Std Deviation 47.9 H RDW Coeff of Jayde 12.4 Plt Count 115 L MPV 9.8 Immature Gran % (Auto) 0.200 Neut % (Auto) 59.4 Lymph % (Auto) 26.0 Scott % (Auto) 11.8 H Eos % (Auto) 2.4 Baso % (Auto) 0.2 Absolute Neuts (auto) 3.0 Absolute Lymphs (auto) 1.32 Nucleated RBC % 0 Sodium 141 Potassium 3.7 Chloride 104 Carbon Dioxide 29.0 Anion Gap 8 BUN 20 H Creatinine 0.85 Estim Creat Clear Calc 46.58 Est GFR (MDRD) Af Amer 84 Est GFR (MDRD) Non-Af 69 BUN/Creatinine Ratio 23.6 H Glucose 101 Lactic Acid 0.6 Calcium 9.2 Total Bilirubin 0.20 AST 19 ALT 22 Alkaline Phosphatase 150 H Total Protein 6.7 Albumin 3.0 L Globulin 3.7 Albumin/Globulin Ratio 0.8 L Lipase 88 Urine Color Urine Clarity Urine pH Ur Specific [place] Urine Protein Urine Glucose (UA) Urine Ketones Urine Occult Blood Urine Nitrite Urine Bilirubin Urine Urobilinogen Ur Leukocyte Esterase Urine RBC Urine WBC Ur Squamous Epith Cells Amorphous Sediment Urine Bacteria Urine Mucus 03/21/22 15:47 WBC RBC Hgb Hct MCV MCH MCHC RDW Std Deviation RDW Coeff of Jayde Plt Count MPV Immature Gran % (Auto) Neut % (Auto) Lymph % (Auto) Scott % (Auto) Eos % (Auto) Baso % (Auto) Absolute Neuts (auto) Absolute Lymphs (auto) Nucleated RBC % Sodium Potassium Chloride Carbon Dioxide Anion Gap BUN Creatinine Estim Creat Clear Calc Est GFR (MDRD) Af Amer Est GFR (MDRD) Non-Af BUN/Creatinine Ratio Glucose Lactic Acid Calcium Total Bilirubin AST ALT Alkaline Phosphatase Total Protein Albumin Globulin Albumin/Globulin Ratio Lipase Urine Color Yellow Urine Clarity Clear Urine pH 7.0 Ur Specific [place] 1.005 Urine Protein Negative Urine Glucose (UA) Normal Urine Ketones Negative Urine Occult Blood Negative Urine Nitrite Negative Urine Bilirubin Negative Urine Urobilinogen Normal Ur Leukocyte Esterase 100 H Urine RBC 0 SEEN Urine WBC 0-5 SEEN Ur Squamous Epith Cells 0-5 SEEN Amorphous Sediment 1+ PHOS Urine Bacteria 0 SEEN Urine Mucus 0 SEEN Radiography Diagnostic Testing: Clinical Impression(s) from Imaging Studies Abdomen/Pelvis CT 03/21/22 15:31 IMPRESSION: 1. Postoperative changes of prior hysterectomy and healed midline incision. 2. No masses bowel obstruction abscess free fluid or free air. No evidence diverticulitis or appendicitis. 3. There is moderate retained formed stool throughout the colon, developing constipation is a consideration. 4. RIGHT renal atrophy, no evidence of obstructive uropathy bilaterally. Incidental note of a small benign-appearing RIGHT renal cyst. 5. Postop changes of prior RIGHT hip arthroplasty. No acute bony changes. 6. Minimal bibasilar atelectasis and pleural parenchymal scar. 7. No evidence of cholelithiasis. Electronically Signed: Suhail Esparza MD at 18:36 EST , Discharge Plan Triage Chief Complaint: Abd Pain ED Provider: Eligio Winkler Dx/Rx/DC Orders Clinical Impression: Abdominal pain, Constipation Instructions: ED Abdominal Pain Unkn Cause Fem, ED Constipation (Adult) Prescriptions: No Action nitroglycerin 0.4 MG tablet 0.4 mg sublingual Q5M PRN (Reason: Chest Pain) Label Comments: chest pain omeprazole 20 MG capsule 20 mg PO DAILY Label Comments: acid reflux cholecalciferol (vitamin D3) [Vitamin D3] 1,000 UNIT tablet 1,000 unit PO DAILY Label Comments: supplement/vitamin acetaminophen [Tylenol] 325 MG tablet 650 mg PO Q4H PRN PRN (Reason: Mild Pain (0-3/10)/Headache) Qty: 0 0RF Label Comments: mild pain/fever losartan 50 mg tablet 50 mg PO DAILY Label Comments: TAKE ONE TABLET BY MOUTH ONCE DAILY venlafaxine 75 mg capsule,extended release 24hr 75 mg PO DAILY Label Comments: TAKE ONE CAPSULE BY MOUTH ONCE DAILY aspirin 81 mg Tablet 81 mg PO DAILY gabapentin 100 mg capsule 100 mg PO 4X/DAY Label Comments: TAKE ONE CAPSULE BY MOUTH IN THE MORNING, TAKE ONE CAPSULE in the afternoon, and TAKE TWO CAPSULES AT BEDTIME Primary Care Provider: Reynold Samayoa Chi Referrals: Reynold Samayoa Chi, MD [Primary Care Provider] - 3-5 Days Disposition Disposition: Home, Self Care
--- NOTE | 2022-03-21 15:31 | CT_ITS ---
INDICATION: Abdominal pain -- IV PO Contrast. Additional history: LLQ pain, nausea, AMANDA/BSO, stage iv ovarian cancer-had chemotherapy, last treatment was aug, htn, rt thr EXAMINATION: CT ABDOMEN AND PELVIS with CONTRAST - CT Abdomen And Pelvis W/ Contrast Injection TECHNIQUE: Multiple axial images were obtained of the abdomen following administration of IV contrast. Planar reconstructions obtained. A radiation dose optimization technique was used for this scan. RADIATION DOSAGE (If Supplied By Facility): CTDIvol = ( 11.03 ) mGy, DLP = ( 723.32 ) mGycm IV Contrast dosage and agent: 100 mL Isovue-370 Oral contrast: Oral contrast is present. COMPARISON: 02/25/2020 FINDINGS: LOWER THORAX: Minimal basilar atelectasis and pleural thickening greater on the RIGHT than LEFT. No consolidation. HEPATOBILIARY: Liver: The liver is homogeneous and shows no evidence of focal lesion. Gallbladder: The gallbladder is unremarkable. Pancreas: Pancreas is normal size configuration and density. No mass is noted. Spleen: The spleen is homogeneous and normal in size. . BOWEL: Stomach: The stomach is normal in size configuration, no evidence of focal masses, abnormal calcifications. No hiatal hernia noted. Bowel: Large and small bowel segments have normal configuration. There is a moderate amount of retained formed stool throughout the colon. No bowel obstruction. No evidence diverticulitis. Appendix: The visualized appendix has normal appearance.: GENITOURINARY: Adrenals: Both adrenal glands are normal in size. Kidneys: LEFT kidney has normal configuration, atrophy the RIGHT kidney noted. No evidence of solid or cystic masses or obstructive uropathy.. No renal calcifications. There is a small benign-appearing cyst in the RIGHT kidney measuring approximately 10 mm in maximal dimension. Bladder: Normal Pelvic organs: Postoperative changes of prior hysterectomy. No pelvic masses or abnormal fluid collections. RETROPERITONEUM: Diffuse aortic calcifications without aneurysmal dilatation. LYMPH NODES: No evidence of retroperitoneal or para-aortic masses fluid collections or adenopathy. PERITONEAL CAVITY: No ascites noted ANTERIOR ABDOMINAL WALL: Normal, no hernia identified. There is a healed midline incision. No incisional hernia. BONES AND SOFT TISSUES: The skeleton shows no evidence for fractures or destructive lesions. Postoperative changes of RIGHT hip arthroplasty. Streak artifact does degrade imaging of the pelvis. OTHER: None CT/Abdomen/Pelvis WITH Contrast IMPRESSION: 1. Postoperative changes of prior hysterectomy and healed midline incision. 2. No masses bowel obstruction abscess free fluid or free air. No evidence diverticulitis or appendicitis. 3. There is moderate retained formed stool throughout the colon, developing constipation is a consideration. 4. RIGHT renal atrophy, no evidence of obstructive uropathy bilaterally. Incidental note of a small benign-appearing RIGHT renal cyst. 5. Postop changes of prior RIGHT hip arthroplasty. No acute bony changes. 6. Minimal bibasilar atelectasis and pleural parenchymal scar. 7. No evidence of cholelithiasis. Electronically Signed: Suhail Esparza MD at 18:36 EST ,
[2022-03-21] MEDS: Ondansetron 4 MG/2 ML Vial IV (15:41)
[2022-03-21] MEDS: Morphine 4 MG/ML Syringe IV ×2 (15:42→17:22)
[2022-03-21 15:54] LABS: Absolute Lymphocyte Count 1.32 X10^3/uL (0.83-4.51); Bacteria 0 SEEN /hpf (None Seen); Basophil# 0.01 X10^3/uL; Basophil% 0.2 % (0-1); Eosinophil# 0.12 X10^3/uL; Eosinophils% 2.4 % (0-5); Hemoglobin 11.5 g/dL (12.0-15.0); Lymphocyte # 1.32 X10^3/ul (0.83-4.51); Mean Corp Hgb Conc 31.9 g/dL (32-36); Mean Corpuscular Hgb 33.5 pg (27.0-32.0); Mean Platelet Vol. 9.8 fl (6.2-12.0); Monocyte% 11.8 % (0-10); Mucous, Urine 0 SEEN /hpf (<or=2+); NRBC Flagged by Analyzer 0 % (0-5); Neutrophil # 3.01 X10^3/uL (2.7-7.7); Neutrophil % 59.4 % (47-70); Platelet Count 115 K/mm3 (150-450); RBC Distribution Width CV 12.4 % (11.6-14.6); RBC Distribution Width SD 47.9 fl (35.1-43.9); Red Blood Cells-Urine 0 SEEN /hpf (0-5); Red Blood Count 3.43 M/mm3 (4.2-5.4); White Blood Count 5.1 K/mm3 (4.4-11.0)
[2022-03-21 15:55] LABS: Color, Urine Yellow (Yellow); Glucose, Dipstick Normal (Normal); Ketone-Dipstick Negative (Negative); Leukocyte Esterase-Dipstick 100 /ul (Negative); Nitrite-Dipstick Negative (Negative); Occult Blood-Urine Negative /ul (Negative); Protein-Dipstick Negative (Negative); Specific Gravity, Urine 1.005 (1.002-1.030); Urine Bilirubin Dipstick Negative (Negative); Urine Clarity Clear (Clear); Urine Urobilinogen Normal (Normal)
[2022-03-21 16:06] LABS: Amorphous Sediment 1+ PHOS; Squamous Epithelial Cells - UA 0-5 SEEN /hpf (5-10); White Blood Cells 0-5 SEEN /hpf (0-5)
[2022-03-21 16:12] LABS: ALB/GLOB Ratio 0.8 RATIO (0.9-2.4); AST(SGOT) 19 U/L (15-37); Alanine Aminotransfer ALT/SGPT 22 U/L (13-56); Alkaline Phosphatase 150 U/L (45-117); Anion Gap 8 (5-15); BUN 20 mg/dL (7-18); BUN/Creat Ratio 23.6 RATIO (10-20); Calcium,Total 9.2 mg/dL (8.5-10.1); Chloride 104 mmol/L (98-107); Creatinine, Serum 0.85 mg/dL (0.55-1.02); EST Glomerular Filtration Rate 69 mL/min (>60); Est Glom Filt Rate - Afr Amer 84 mL/min (>60); Estimated Creatinine Clearance 46.58 ml/min; Globulin 3.7 g/dL (2.2-4.2); Glucose 101 mg/dL (74-106); Lipase 88 U/L (73-393); Potassium 3.7 mmol/L (3.5-5.1); Protein, Total 6.7 g/dL (6.4-8.2); Sodium Level 141 mmol/L (136-145)
[2022-03-21 16:36] LABS: Lactic Acid 0.6 mmol/L (0.4-1.9)
[2022-03-21 16:50] VITALS: BP 202/89; PULSE 67; RESP 24; O2SAT 92
[2022-03-21 18:18] VITALS: BP 202/86; PULSE 69; RESP 17; O2SAT 92
[2022-03-21 18:20] VITALS: O2SAT 97
[2022-03-21 18:30] VITALS: BP 179/82; PULSE 68; RESP 20; O2SAT 92
== END 2022-03-21 19:30 | disposition home or self-care (01) ==
PROVIDERS: Emergency Provider Emergency Medicine; PCP Family Medicine Geriatric Medicine; Visit Provider Emergency Medicine
DX: R10.9 Unspecified abdominal pain (principal); K59.00 Constipation, unspecified; M51.36 Other intervertebral disc degeneration, lumbar region; Z79.82 Long term (current) use of aspirin; Z79.899 Other long term (current) drug therapy; Z87.891 Personal history of nicotine dependence
CPT/HCPCS: 36591; 74177; 80053; 81001; 83605; 83690; 85025; 96374; 96375; 96376; 99284; Q9967; A4216; J2405

== ENCOUNTER → 2022-03-30 | Outpatient (CLI) | payer MEDICARE, SELFPAY ==
[2022-03-30 13:55] LABS: Absolute Lymphocyte Count 1.19 X10^3/uL (0.83-4.51); Absolute Neutrophil Count 4.5 X10^3/uL (2.0-7.7); Basophil# 0.01 X10^3/uL; Basophil% 0.2 % (0-1); Eosinophil# 0.11 X10^3/uL; Eosinophils% 1.7 % (0-5); Hematocrit 39.1 % (37-47); Hemoglobin 12.6 g/dL (12.0-15.0); Lymphocyte # 1.19 X10^3/ul (0.83-4.51); Lymphocyte % 18.8 % (19-41); Mean Corp Hgb Conc 32.2 g/dL (32-36); Mean Corpuscular Volume 102.4 fL (81-99); Monocyte# 0.52 X10^3/uL; Monocyte% 8.2 % (0-10); NRBC Flagged by Analyzer 0 % (0-5); Neutrophil # 4.48 X10^3/uL (2.7-7.7); Neutrophil % 70.8 % (47-70); Platelet Count 157 K/mm3 (150-450); RBC Distribution Width CV 12.7 % (11.6-14.6); RBC Distribution Width SD 47.5 fl (35.1-43.9); Red Blood Count 3.82 M/mm3 (4.2-5.4); White Blood Count 6.3 K/mm3 (4.4-11.0)
[2022-03-30 14:14] LABS: Vitamin D,25 Hydroxy 42.2 ng/mL
[2022-03-30 14:21] LABS: ALB/GLOB Ratio 0.8 RATIO (0.9-2.4); AST(SGOT) 14 U/L (15-37); Alanine Aminotransfer ALT/SGPT 20 U/L (13-56); Albumin, Serum 3.1 g/dL (3.2-5.0); Alkaline Phosphatase 140 U/L (45-117); Anion Gap 7 (5-15); BUN 19 mg/dL (7-18); BUN/Creat Ratio 21.2 RATIO (10-20); Calcium,Total 9.7 mg/dL (8.5-10.1); Chloride 103 mmol/L (98-107); EST Glomerular Filtration Rate 65 mL/min (>60); Est Glom Filt Rate - Afr Amer 79 mL/min (>60); Glucose 105 mg/dL (74-106); Protein, Total 7.1 g/dL (6.4-8.2); Sodium Level 138 mmol/L (136-145); Thyroid Stim Hormone (TSH) 1.14 uIU/mL (0.358-3.74)
== END | disposition home or self-care (01) ==
LOC: POLAB3 10:01
PROVIDERS: PCP Family Medicine Geriatric Medicine; Visit Provider Family Medicine Geriatric Medicine
DX: E55.9 Vitamin D deficiency, unspecified (principal); I10 Essential (primary) hypertension
CPT/HCPCS: 36415; 80053; 82306; 84443; 85025

== ENCOUNTER → 2022-04-20 | Outpatient (CLI) | payer MEDICARE, SELFPAY ==
--- NOTE | 2022-04-20 12:04 | RAD_ITS ---
STUDY: X-RAY - LUMBAR SPINE REASON FOR EXAM: Female, 76 years old. LOW BACK PAIN TECHNIQUE: 5 view(s) of the lumbar spine were obtained. COMPARISON: Lumbar spine radiograph June 12, 2020 FINDINGS: Compression fracture and vertebral plasty T12 appears new. New compression fracture L1. Slight retrolisthesis L1 and T12. Normal lumbar lordosis. Mild dextroconvex scoliosis. There is a normal alignment of the vertebrae. There is diffuse demineralization with multi-level endplate spondylosis. There is multi-level degenerative disc disease with multi-level disc space narrowing. The soft tissue structures are unremarkable. RAD/L/S Spine Min 4 Views IMPRESSION: New compression fractures T12 and L1, age indeterminate. New vertebral plasty T12. Spondylosis and degenerative disc disease unchanged. Electronically Signed: Benny Santacruz MD at 19:24 EST ,
== END | disposition home or self-care (01) ==
LOC: RAD 12:02
PROVIDERS: PCP Family Medicine Geriatric Medicine; Referring Provider Family Medicine Geriatric Medicine; Visit Provider Family Medicine Geriatric Medicine
DX: M54.50 Low back pain, unspecified (principal)
CPT/HCPCS: 72110

== ENCOUNTER → 2022-04-28 | Outpatient (CLI) | payer MEDICARE, SELFPAY | END | disposition home or self-care (01) | LOC: POLAB3 15:43 → LABSPEC 15:45 | PROVIDERS: PCP Family Medicine Geriatric Medicine; Visit Provider Family Medicine Geriatric Medicine | DX: N39.0 Urinary tract infection, site not specified (principal) | CPT/HCPCS: 87086; 87088 ==

== ENCOUNTER 2022-05-01 13:39 | Emergency (ER) | payer MEDICARE, SELFPAY ==
[2022-05-01 13:40] VITALS: BP 138/78; PULSE 89; RESP 16; TEMP 36.6; O2SAT 99; BMI 26.9
--- NOTE | 2022-05-01 15:28 | ED.VIS.BACK ---
HPI History of Present Illness Chief Complaint: Back Informant: patient Onset/Context/Timing Onset: Weeks (2-3) Context: Gradual Onset Timing: Continuous Quality: Aching Location: Lumbar (Radiating into both thighs at times) Current Severity: Moderate Maximum Severity: Severe Worsened by: improves with Movement, Ambulation and Bending Relieved by: Remaining Still Associated Symptoms Associated Symptoms: Radiation to Right Leg and Radiation to Left Leg; Negative for Numbness, Tingling, Abdominal Pain, Unable to Ambulate, Unable to Transfer, Urinary Retention, Urinary Incontinence, Constipation or Fecal Incontinence Narrative Narrative: Patient has been having pain in her low back for the past 2 or 3 weeks, she had an outpatient x-ray verifying that she has an L1 vertebral compression fracture in the area where she is having pain, she is waiting to see pain management and planning on hopefully having a kyphoplasty, she had that for a T12 compression fracture 1 or 2 months ago, and she was pain-free afterwards until this pain started. In waiting, she has been taking tramadol. Is not helping the pain and it is too severe now. She presents for pain control after doctors offices sent her here. She denies any bowel or bladder dysfunction, no radiating of pain down below either knee, none of the symptoms she has are new they are just worse. [facility] Medical History (Updated 05/01/22 @ 15:[address] Diego Doherty MD) DDD (degenerative disc disease), lumbar Hypertension Osteoarthritis Segmental and somatic dysfunction of lumbar region Segmental and somatic dysfunction of pelvic region TIA (transient ischemic attack) Home Medications cholecalciferol (vitamin D3) 25 mcg (1,000 unit) tablet (Vitamin D3) 1,000 unit PO DAILY 03/13/15 [History Last Taken Unknown] nitroglycerin 0.4 mg sublingual tablet 0.4 mg sublingual Q5M PRN Chest Pain 03/13/15 [History Last Taken Unknown] omeprazole 20 mg capsule,delayed release 20 mg PO DAILY 03/13/15 [History Last Taken 03/24/15 06:00] acetaminophen 325 mg tablet (Tylenol) 650 mg PO Q4H PRN PRN Mild Pain (0-3/10)/Headache ##0 04/08/15 [Rx Last Taken Unknown] aspirin 81 mg tablet 81 mg PO DAILY 03/21/22 [History Last Taken Unknown] gabapentin 100 mg capsule 100 mg PO 4X/DAY 03/21/22 [History Last Taken Unknown] losartan 50 mg tablet 50 mg PO DAILY bp 03/21/22 [History Last Taken Unknown] venlafaxine 75 mg capsule,extended release 24 hr 75 mg PO DAILY 03/21/22 [History Last Taken Unknown] hydrocodone-acetaminophen 5-325mg 5mg-325mg 1 tab PO Q6H PRN PRN Pain 3 days #12 TABLETS 05/01/22 [Rx Last Taken Unknown] Allergy/AdvReac Type Severity Reaction Status Date / Time Penicillins AdvReac Upset Verified 05/01/22 13:39 Stomach Surgical History History of hysterectomy S/P total hip arthroplasty Social History Smoking Status: Former smoker alcohol intake: never substance use type: does not use what type of physical activity do you participate in: none ROS ROS ED Constitutional Constitutional ED: Denies chills or fever(s) Gastrointestinal Gastrointestinal: Denies abdominal pain, constipation, fecal incontinence, nausea or vomiting Genitourinary Genitourinary ED: Reports other Details: no urinary retention ; Denies abdominal discomfort or urinary incontinence Musculoskeletal Musculoskeletal: Reports as per HPI and back pain; Denies neck pain Integumentary Denies rash or wounds Neurologic Neurologic: Denies headache(s), paresthesias or weakness EXAM Physical Exam Const Vital Signs: 05/01/22 13:40 Temperature 97.8 F Temperature Source Temporal Pulse Rate 89 Respiratory Rate 16 Blood Pressure 138/78 H Blood Pressure Mean 98 Pulse Ox 99 Oxygen Delivery Method Room Air Positive well nourished and well developed General Appearance ED: well developed and NAD HEENT Negative for trauma or tenderness Eyes PERRL and EOMs intact bilaterally Neck full ROM and supple GI normal to inspection, nondistended, normoactive bowel sounds, soft to palpation and non-tender Back/Spine normal to inspection Lumbar Spine / Lower Back: ROM limited, paraspinal muscle tenderness and straight leg raise negative bilaterally; Negative for lumbar spinal tenderness Extremity normal to inspection, full ROM and no pedal edema Neuro oriented x3 and no sensory deficits noted Sensorium / Orientation: alert Motor Exam: strength 5/5 throughout and clonus absent Deep Tendon Reflexes: Rt Patellar (L4): 2+, Lt Patellar (L4): 2+, Rt Ankle (S1): 2+ and Lt Ankle (S1): 2+ Deep Tendon Reflexes Back: Rt Patellar (L4): 2+, Lt Patellar (L4): 2+, Rt Ankle (S1): 2+ and Lt Ankle (S1): 2+ Plantar Reflex: Downgoing: bilateral Psych mental status grossly normal and thought process normal Skin no rashes or lesions noted and no wounds MDM MDM MDM Narrative Medical decision making narrative: Patient has very painful range of motion but she is comfortable with remaining still. No signs or symptoms of cauda equina syndrome. I do not think she needs any reimaging, she has had no recent falls or injuries. We discussed options here, she is agreeable to getting an injection of morphine, prophylactic Zofran, and a prescription for some [place] advised not to mix this with the tramadol until she follows up which is after the weekend. Discharge Plan Triage Chief Complaint: Back ED Provider: Diego Doherty Dx/Rx/DC Orders Clinical Impression: Closed compression fracture of L1 vertebra, Acute low back pain Instructions: ED Fracture, Vertebral Compression Prescriptions: New hydrocodone-acetaminophen [hydrocodone-acetaminophen] 5-325 mg tablet 1 tab PO Q6H PRN PRN (Reason: Pain) 3 Days Qty: 12 0RF No Action nitroglycerin 0.4 MG tablet 0.4 mg sublingual Q5M PRN (Reason: Chest Pain) Label Comments: chest pain omeprazole 20 MG capsule 20 mg PO DAILY Label Comments: acid reflux cholecalciferol (vitamin D3) [Vitamin D3] 1,000 UNIT tablet 1,000 unit PO DAILY Label Comments: supplement/vitamin acetaminophen [Tylenol] 325 MG tablet 650 mg PO Q4H PRN PRN (Reason: Mild Pain (0-3/10)/Headache) Qty: 0 0RF Label Comments: mild pain/fever losartan 50 mg tablet 50 mg PO DAILY Label Comments: TAKE ONE TABLET BY MOUTH ONCE DAILY venlafaxine 75 mg capsule,extended release 24hr 75 mg PO DAILY Label Comments: TAKE ONE CAPSULE BY MOUTH ONCE DAILY aspirin 81 mg Tablet 81 mg PO DAILY gabapentin 100 mg capsule 100 mg PO 4X/DAY Label Comments: TAKE ONE CAPSULE BY MOUTH IN THE MORNING, TAKE ONE CAPSULE in the afternoon, and TAKE TWO CAPSULES AT BEDTIME Primary Care Provider: Reynold Samayoa Chi Referrals: Александр Rob MD [Med Staff - Active Staff] - Keep [facility] appointment Reynold Samayoa Chi, MD [Primary Care Provider] - Activity Restrictions/Additional Instructions: You may mix [place] and Tylenol but make sure you are not taking more than 4000 mg of acetaminophen in a 24-hour period. You may alter the dosing as needed with regards to the new prescription; you can try breaking the pills in half and take a half of 1 if that is enough, and if 1 tablet is not enough you can take 2 at a time, they just will not last as long. Disposition Disposition: Home, Self Care
[2022-05-01] MEDS: Ondansetron ODT 4 MG Tablet 8 MG PO (15:37)
[2022-05-01] MEDS: Morphine 4 MG/ML Syringe IM (15:37)
[2022-05-01 16:37] VITALS: BP 132/76; PULSE 88
== END 2022-05-01 16:39 | disposition home or self-care (01) ==
PROVIDERS: Emergency Provider Emergency Medicine; PCP Family Medicine Geriatric Medicine; Visit Provider Emergency Medicine
DX: M48.56XA Collapsed vertebra, not elsewhere classified, lumbar region, initial encounter for fracture (principal); M51.36 Other intervertebral disc degeneration, lumbar region; Z86.73 Personal history of transient ischemic attack (TIA), and cerebral infarction without residual deficits; Z87.891 Personal history of nicotine dependence
CPT/HCPCS: 96372; 99283

== ENCOUNTER → 2022-05-06 | Outpatient (CLI) | payer MEDICARE, SELFPAY ==
--- NOTE | 2022-05-06 18:18 | BONBX_PTH ---
PATIENT: JOANIE RAMIREZ LOC: [facility] U#:[id number] AGE/SX: 77/F ROOM: RE05/06/[address]: Dr. Александр Rob MD : 1945 BED: DIS: 05/06/2022 SPEC #: [id number] RECD: 05/06/22 21:46 STATUS: ZAYDA REIgor #: [id number] SONYA: 05/06/22 18:[address]: Александр Rob DEPT: SURGICAL PATHOLOGY RECD BY: Dominik Yepez ENTERED: 05/07/22 11:16 SP TYPE: Bone OTHR DR: Dr. Reynold Samayoa MD Tissues: Vertebra, NOS Procedures: Decalcification bone/plaque Surgery Specimen Level V HEADER OPERATION: Kyphoplasty L1 PRE-OP DIAGNOSIS: Compression fracture TISSUE SUBMITTED: L1 vertebral body MICROSCOPIC DIAGNOSIS L1 vertebral body, bone biopsy: Trilineage hematopoiesis. No evidence of malignancy. AM:wendy 05/11/2022 MICROSCOPIC DESCRIPTION Slides are reviewed. GROSS DESCRIPTION Received is one container labeled with the patient's name and not further designated. The specimen consists of multiple irregular fragments of bone that in aggregate measure 2 x 0.5 x 0.1 cm. The specimen is totally submitted in one cassette after decalcification. / MARCEL:wendy 05/07/2022 TC:5 CPT: 47773, 48948
== END | disposition home or self-care (01) ==
LOC: LABSPEC 05-07 11:12
PROVIDERS: PCP Family Medicine Geriatric Medicine; Visit Provider Anesthesiology Pain Medicine
DX: M48.50XA Collapsed vertebra, not elsewhere classified, site unspecified, initial encounter for fracture (principal)
CPT/HCPCS: 88307; 88311

== ENCOUNTER → 2022-10-12 | Outpatient (CLI) | payer MEDICARE, MEDICAID, SELFPAY ==
[2022-10-12 12:47] LABS: Absolute Neutrophil Count 4.1 X10^3/uL (2.0-7.7); Basophil# 0.01 X10^3/uL; Basophil% 0.2 % (0-1); Hematocrit 31.7 % (37-47); Hemoglobin 10.5 g/dL (12.0-15.0); Lymphocyte % 20.6 % (19-41); Mean Corp Hgb Conc 33.1 g/dL (32-36); Mean Corpuscular Hgb 34.9 pg (27.0-32.0); Mean Corpuscular Volume 105.3 fL (81-99); Mean Platelet Vol. 9.7 fl (6.2-12.0); Monocyte# 0.82 X10^3/uL; NRBC Flagged by Analyzer 0 % (0-5); Neutrophil # 4.14 X10^3/uL (2.7-7.7); Neutrophil % 65.7 % (47-70); POSITIVE MORPHOLOGY YES; Platelet Count 147 K/mm3 (150-450); RBC Distribution Width CV 18.1 % (11.6-14.6); RBC Distribution Width SD 67.5 fl (35.1-43.9); Red Blood Count 3.01 M/mm3 (4.2-5.4); White Blood Count 6.3 K/mm3 (4.4-11.0)
[2022-10-12 12:55] LABS: Differential Indicated SCAN CRITERIA MET
[2022-10-12 13:14] LABS: Anisocytosis 2+; Differential Comment SCANNED; Polychromasia 1+
[2022-10-12 13:18] LABS: Vitamin D,25 Hydroxy 36.6 ng/mL
[2022-10-12 13:27] LABS: ALB/GLOB Ratio 1.1 RATIO (0.9-2.4); AST(SGOT) 14 U/L (15-37); Alanine Aminotransfer ALT/SGPT 17 U/L (13-56); Albumin, Serum 3.6 g/dL (3.2-5.0); Alkaline Phosphatase 110 U/L (45-117); Anion Gap 4 (5-15); BUN 25 mg/dL (7-18); BUN/Creat Ratio 25.3 RATIO (10-20); Calcium,Total 9.1 mg/dL (8.5-10.1); Chloride 110 mmol/L (98-107); Creatinine, Serum 0.99 mg/dL (0.55-1.02); EST Glomerular Filtration Rate 58 mL/min (>60); Est Glom Filt Rate - Afr Amer 70 mL/min (>60); Globulin 3.2 g/dL (2.2-4.2); Glucose 105 mg/dL (74-106); Protein, Total 6.8 g/dL (6.4-8.2); Sodium Level 139 mmol/L (136-145); Thyroid Stim Hormone (TSH) 0.72 uIU/mL (0.358-3.74)
== END | disposition home or self-care (01) ==
LOC: LAB 12:20
PROVIDERS: PCP Family Medicine Geriatric Medicine; Referring Provider Family Medicine Geriatric Medicine; Visit Provider Family Medicine Geriatric Medicine
DX: I10 Essential (primary) hypertension (principal); E55.9 Vitamin D deficiency, unspecified
CPT/HCPCS: 36415; 80053; 82306; 84443; 85025

== ENCOUNTER → 2022-10-28 | Outpatient (CLI) | payer MEDICARE, MEDICAID, SELFPAY ==
[2022-10-28 14:38] LABS: Amphetamine Urine VISTA NEGATIVE (<1000 ng/mL); Barbiturate Urine VISTA NEGATIVE (< 200 ng/mL); Benzodiazepine Urine VISTA NEGATIVE (< 200 ng/mL); Cocaine Urine VISTA NEGATIVE (< 300 ng/mL); Ecstacy Urine VISTA NEGATIVE (< 500 ng/mL); Methadone Urine VISTA NEGATIVE (< 300 ng/mL); PCP Urine VISTA NEGATIVE (< 25 ng/mL); THC Urine VISTA NEGATIVE (< 50 ng/mL); Vista UDS pH Range 6
== END | disposition home or self-care (01) ==
LOC: LAB 13:10
PROVIDERS: PCP Family Medicine Geriatric Medicine; Referring Provider Anesthesiology Pain Medicine; Visit Provider Anesthesiology Pain Medicine
DX: F11.20 Opioid dependence, uncomplicated (principal)
CPT/HCPCS: 80307

== ENCOUNTER → 2022-11-25 | Outpatient (CLI) | payer MEDICARE, MEDICAID, SELFPAY ==
--- NOTE | 2022-11-25 15:15 | RAD_ITS ---
STUDY: X-RAY - THORACIC SPINE REASON FOR EXAM: Female, 77 years old. THORACIC RADICULOPATHY TECHNIQUE: 3 view(s) of the thoracic spine were obtained. COMPARISON: X-ray lumbar spine 04/20/2022 FINDINGS: There is an increase in the normal thoracic kyphosis. There is no substantial scoliosis. Chronic moderate wedge compression fracture of T12 treated with vertebroplasty. New moderate wedge compression fracture of T11 which may be acute or subacute. Interval vertebroplasty of L1. Normal disc space heights. The soft tissue structures are unremarkable. RAD/Thoracic Spine 3 Views IMPRESSION: New moderate wedge compression fracture of T11 which may be acute or subacute. Clinical correlation and MRI may be useful. Electronically Signed: Suhail Bob MD at 22:09 EDT ,
== END | disposition home or self-care (01) ==
PROVIDERS: PCP Family Medicine Geriatric Medicine; Referring Provider Anesthesiology Pain Medicine; Visit Provider Anesthesiology Pain Medicine
DX: M54.16 Radiculopathy, lumbar region (principal)
CPT/HCPCS: 72072

== ENCOUNTER → 2022-12-28 | Outpatient (CLI) | payer MEDICARE, MEDICAID, SELFPAY ==
--- NOTE | 2022-12-28 10:35 | RAD_ITS ---
STUDY: X-RAY - LUMBAR SPINE REASON FOR EXAM: Female, 77 years old. Radiculopathy, lumbar region. TECHNIQUE: 2 view(s) of the lumbar spine were obtained. COMPARISON: Lumbar spine x-rays dated April 2022. FINDINGS: Marked osteopenia. Accentuated lordosis, unchanged. No substantial scoliosis. Normal alignment of the vertebrae. Endplate concavities compatible with osteoporosis, relatively unchanged. New anterior wedge compression deformities of T11 and L1. New changes of vertebroplasty at T11 and L1. Diffuse moderate intervertebral disc space narrowing with osteophyte formation, relatively unchanged. Marked vascular calcification and right total hip arthroplasty, unaltered. RAD/Lumbar Spine 2 or 3 Views IMPRESSION: Osteopenia with diffuse moderate to marked lower thoracic and lumbosacral spondylosis. New anterior wedge compression deformities of T11 and L1. Vertebral plasties at T11 and L1 which are new since the prior study. No other change is noted. Electronically Signed: Armen Ramon MD at 10:59 EDT ,
== END | disposition home or self-care (01) ==
LOC: RAD 10:28
PROVIDERS: PCP Family Medicine Geriatric Medicine; Referring Provider Anesthesiology Pain Medicine; Visit Provider Anesthesiology Pain Medicine
DX: M54.16 Radiculopathy, lumbar region (principal)
CPT/HCPCS: 72100

== ENCOUNTER → 2023-04-13 | Outpatient (CLI) | payer MEDICARE, MEDICAID, SELFPAY ==
[2023-04-13 16:06] LABS: Absolute Lymphocyte Count 1.11 X10^3/uL (0.83-4.51); Absolute Neutrophil Count 3.2 X10^3/uL (2.0-7.7); Basophil# 0.02 X10^3/uL; Basophil% 0.4 % (0-1); Eosinophils% 2.1 % (0-5); Hematocrit 36.4 % (37-47); Hemoglobin 11.3 g/dL (12.0-15.0); Lymphocyte # 1.11 X10^3/ul (0.83-4.51); Mean Corpuscular Hgb 31.8 pg (27.0-32.0); Mean Corpuscular Volume 102.5 fL (81-99); Mean Platelet Vol. 9.8 fl (6.2-12.0); Monocyte# 0.35 X10^3/uL; Monocyte% 7.3 % (0-10); NRBC Flagged by Analyzer 0 % (0-5); Neutrophil # 3.23 X10^3/uL (2.7-7.7); Platelet Count 148 K/mm3 (150-450); RBC Distribution Width SD 48.5 fl (35.1-43.9); Red Blood Count 3.55 M/mm3 (4.2-5.4); White Blood Count 4.8 K/mm3 (4.4-11.0)
[2023-04-13 16:23] LABS: Vitamin D,25 Hydroxy 33.6 ng/mL
[2023-04-13 16:26] LABS: ALB/GLOB Ratio 0.8 RATIO (0.9-2.4); AST(SGOT) 15 U/L (15-37); Alanine Aminotransfer ALT/SGPT 17 U/L (13-56); Albumin, Serum 3.1 g/dL (3.2-5.0); Alkaline Phosphatase 125 U/L (45-117); Anion Gap 8 (5-15); BUN 18 mg/dL (7-18); BUN/Creat Ratio 15.3 RATIO (10-20); Calcium,Total 8.6 mg/dL (8.5-10.1); Chloride 107 mmol/L (98-107); Creatinine, Serum 1.18 mg/dL (0.55-1.02); EST Glomerular Filtration Rate 47 mL/min (>60); Est Glom Filt Rate - Afr Amer 57 mL/min (>60); Globulin 3.7 g/dL (2.2-4.2); Glucose 121 mg/dL (74-106); Potassium 3.9 mmol/L (3.5-5.1); Protein, Total 6.8 g/dL (6.4-8.2); Sodium Level 142 mmol/L (136-145)
== END | disposition home or self-care (01) ==
LOC: POLAB3 15:04
PROVIDERS: PCP Family Medicine Geriatric Medicine; Visit Provider Family Medicine Geriatric Medicine
DX: I10 Essential (primary) hypertension (principal); E55.9 Vitamin D deficiency, unspecified
CPT/HCPCS: 36415; 80053; 82306; 84443; 85025

== ENCOUNTER → 2023-04-14 | Outpatient (CLI) | payer MEDICARE, MEDICAID, SELFPAY ==
--- NOTE | 2023-04-14 10:45 | RAD_ITS ---
EXAM: XR LUMBOSACRAL SPINE, 2 OR 3 VIEWS CLINICAL INDICATION: BACK PAIN TECHNIQUE: Frontal and lateral views of the lumbar spine and sacrum. COMPARISON: 12/28/2022 FINDINGS: VERTEBRAE: There is orthopedic cement in T11-L1 from previous kyphoplasty''s. Preserved vertebral body height. No fracture. No spondylolisthesis. Preservation of the normal lumbar lordosis. No significant facet arthropathy. DISC SPACES: There is disc space narrowing at L3-4 and L4-5. GASTROINTESTINAL TRACT: Unremarkable as visualized. Included bowel gas pattern is non-obstructive. RAD/Lumbar Spine 2 or 3 Views IMPRESSION: No acute osseous abnormalities. There is orthopedic cement from previous kyphoplasty. There is disc space narrowing in the lower lumbar spine. There has been no significant change from the reference exam. Electronically Signed: Madi Ramirez MD at 19:31 EST ,
== END | disposition home or self-care (01) ==
LOC: PSN 10:27 → RAD 10:28
PROVIDERS: PCP Family Medicine Geriatric Medicine; Referring Provider Anesthesiology Pain Medicine; Visit Provider Anesthesiology Pain Medicine
DX: M51.37 Other intervertebral disc degeneration, lumbosacral region (principal); M47.816 Spondylosis without myelopathy or radiculopathy, lumbar region; R68.83 Chills (without fever)
CPT/HCPCS: 72100; 87635; 87804; 87807; C9803

== ENCOUNTER → 2023-11-07 | Outpatient (CLI) | payer MEDICAID, OTHER, SELFPAY ==
[2023-11-07 15:36] LABS: Absolute Lymphocyte Count 1.73 X10^3/uL (0.83-4.51); Basophil# 0.05 X10^3/uL; Basophil% 0.6 % (0-1); Eosinophil# 0.04 X10^3/uL; Eosinophils% 0.5 % (0-5); Hemoglobin 11.4 g/dL (12.0-15.0); Lymphocyte # 1.73 X10^3/ul (0.83-4.51); Lymphocyte % 20.7 % (19-41); Mean Corp Hgb Conc 32.6 g/dL (32-36); Mean Corpuscular Hgb 35.4 pg (27.0-32.0); Mean Corpuscular Volume 108.7 fL (81-99); Mean Platelet Vol. 10.7 fl (6.2-12.0); Monocyte# 0.47 X10^3/uL; Monocyte% 5.6 % (0-10); NRBC Flagged by Analyzer 0 % (0-5); Neutrophil # 5.99 X10^3/uL (2.7-7.7); Neutrophil % 71.9 % (47-70); Platelet Count 112 K/mm3 (150-450); RBC Distribution Width CV 13.4 % (11.6-14.6); RBC Distribution Width SD 53.5 fl (35.1-43.9); Red Blood Count 3.22 M/mm3 (4.2-5.4); White Blood Count 8.3 K/mm3 (4.4-11.0)
[2023-11-07 16:01] LABS: Color, Urine Yellow (Yellow); Glucose, Dipstick Normal (Normal); Ketone-Dipstick Negative (Negative); Leukocyte Esterase-Dipstick 25 /ul (Negative); Nitrite-Dipstick Negative (Negative); Occult Blood-Urine Negative /ul (Negative); Protein-Dipstick 15 mg/dl (Negative); Urine Bilirubin Dipstick Negative (Negative); Urine Clarity Clear (Clear); Urine Urobilinogen Normal (Normal); Urine pH 6.5 (5.0 - 8.0)
[2023-11-07 16:29] LABS: AST(SGOT) 13 U/L (15-37); Alanine Aminotransfer ALT/SGPT 18 U/L (13-56); Albumin, Serum 3.6 g/dL (3.2-5.0); Alkaline Phosphatase 180 U/L (45-117); Anion Gap 8 (5-15); BUN 20 mg/dL (7-18); BUN/Creat Ratio 18.7 RATIO (10-20); Chloride 106 mmol/L (98-107); Cholesterol 247 mg/dL (200); Creatinine, Serum 1.07 mg/dL (0.55-1.02); EST Glomerular Filtration Rate 53 mL/min (>60); Est Glom Filt Rate - Afr Amer 64 mL/min (>60); Globulin 3.6 g/dL (2.2-4.2); Glucose 98 mg/dL (74-106); High Density Lipoprotein 65 mg/dL; Potassium 4.3 mmol/L (3.5-5.1); Protein, Total 7.2 g/dL (6.4-8.2); Sodium Level 139 mmol/L (136-145); Thyroid Stim Hormone (TSH) 1.64 uIU/mL (0.358-3.74); Triglycerides 194 mg/dL; Very Low Density Lipoprotein 39 mg/dL (5-40)
[2023-11-07 17:08] LABS: Vitamin D,25 Hydroxy 31.3 ng/mL
== END | disposition home or self-care (01) ==
PROVIDERS: PCP Family Medicine Geriatric Medicine; Visit Provider Family Medicine Geriatric Medicine
DX: I10 Essential (primary) hypertension (principal); E55.9 Vitamin D deficiency, unspecified; E78.5 Hyperlipidemia, unspecified; N39.0 Urinary tract infection, site not specified
CPT/HCPCS: 36415; 80053; 80061; 81002; 82306; 84443; 85025

== ENCOUNTER → 2024-01-20 | Outpatient (CLI) | payer MEDICARE, MEDICAID, SELFPAY ==
--- NOTE | 2024-01-20 10:44 | CT_ITS ---
STUDY: CT BRAIN WITHOUT CONTRAST REASON FOR EXAM: Female, 78 years old. Unspecified injury of head, initial encounter RADIATION DOSAGE (If Supplied By Facility): CTDIvol = ( 44.99 ) mGy, DLP = ( 779.24 ) mGycm TECHNIQUE: Transaxial CT imaging of the brain was performed without administration of intravenous contrast material. Individualized dose optimization techniques were used for this CT. COMPARISON: Comparison is made with prior study dated March 27, 2015. FINDINGS: Small scalp hematoma overlying the left frontal bone. Normal calvarium. There is mild cerebral atrophy with widening of the extra-axial spaces and ventricular dilatation. There are areas of decreased attenuation within the white matter tracts of the supratentorial brain, consistent with microvascular disease changes. Normal basal ganglia and thalami. Normal brainstem. Normal cerebellum. There is no intracranial hemorrhage. There are no findings of an acute ischemic infarction. Normal visualized paranasal sinuses. CT/Brain/Head without Contrast IMPRESSION: Small scalp hematoma overlying the left frontal bone. Cerebral atrophy. Electronically Signed: Osmany Calvert MD at 11:01 EDT ,
== END | disposition home or self-care (01) ==
PROVIDERS: PCP Family Medicine Geriatric Medicine; Referring Provider Family Medicine Geriatric Medicine; Visit Provider Family Medicine Geriatric Medicine
DX: L03.115 Cellulitis of right lower limb (principal); B95.62 Methicillin resistant Staphylococcus aureus infection as the cause of diseases classified elsewhere; S09.90XA Unspecified injury of head, initial encounter
CPT/HCPCS: 70450; 87070; 87075; 87077; 87186; 87205; 87640

== ENCOUNTER 2024-01-26 07:36 | Outpatient (RCR) | payer MEDICARE, MEDICAID, SELFPAY ==
[2024-01-26 08:13] VITALS: BP 131/80; PULSE 116; RESP 18; TEMP 36.3
== END 2024-02-06 23:59 | disposition home or self-care (01) ==
LOC: WC 07:36
PROVIDERS: PCP Family Medicine Geriatric Medicine; Referring Provider Family Medicine Geriatric Medicine; Visit Provider Internal Medicine
DX: S80.811A Abrasion, right lower leg, initial encounter (principal); S81.801A Unspecified open wound, right lower leg, initial encounter; I10 Essential (primary) hypertension; Z79.82 Long term (current) use of aspirin; Z79.899 Other long term (current) drug therapy; W55.03XA Scratched by cat, initial encounter; M19.90 Unspecified osteoarthritis, unspecified site; Z85.43 Personal history of malignant neoplasm of ovary; Z92.21 Personal history of antineoplastic chemotherapy; Z86.73 Personal history of transient ischemic attack (TIA), and cerebral infarction without residual deficits
CPT/HCPCS: 11042; 99213; G0463

== ENCOUNTER → 2024-02-23 | Outpatient (CLI) | payer MEDICARE, MEDICAID, SELFPAY ==
[2024-02-23 11:19] LABS: Absolute Lymphocyte Count 1.08 X10^3/uL (0.83-4.51); Basophil# 0.02 X10^3/uL; Basophil% 0.1 % (0-1); Eosinophil# 0.18 X10^3/uL; Eosinophils% 1.2 % (0-5); Hematocrit 35.7 % (37-47); Hemoglobin 11.5 g/dL (12.0-15.0); Lymphocyte # 1.08 X10^3/ul (0.83-4.51); Lymphocyte % 6.9 % (19-41); Mean Corp Hgb Conc 32.2 g/dL (32-36); Mean Corpuscular Hgb 32.3 pg (27.0-32.0); Mean Corpuscular Volume 100.3 fL (81-99); Mean Platelet Vol. 10.1 fl (6.2-12.0); Monocyte# 1.23 X10^3/uL; Monocyte% 7.9 % (0-10); NRBC Flagged by Analyzer 0 % (0-5); Neutrophil # 12.96 X10^3/uL (2.7-7.7); Neutrophil % 82.9 % (47-70); POSITIVE MORPHOLOGY YES; Platelet Count 185 K/mm3 (150-450); RBC Distribution Width CV 14.3 % (11.6-14.6); RBC Distribution Width SD 51.8 fl (35.1-43.9); Red Blood Count 3.56 M/mm3 (4.2-5.4); White Blood Count 15.6 K/mm3 (4.4-11.0)
[2024-02-23 11:20] LABS: Differential Indicated SCAN CRITERIA MET
[2024-02-23 11:43] LABS: Anion Gap 6 (5-15); BUN 14 mg/dL (7-18); BUN/Creat Ratio 13.2 RATIO (10-20); Calcium,Total 8.9 mg/dL (8.5-10.1); Chloride 102 mmol/L (98-107); Creatinine, Serum 1.06 mg/dL (0.55-1.02); EST Glomerular Filtration Rate 53 mL/min (>60); Est Glom Filt Rate - Afr Amer 64 mL/min (>60); Glucose 109 mg/dL (74-106); Potassium 4.2 mmol/L (3.5-5.1); Sodium Level 136 mmol/L (136-145)
== END | disposition home or self-care (01) ==
LOC: POLAB3 11:02
PROVIDERS: PCP Family Medicine Geriatric Medicine; Visit Provider Family Medicine Geriatric Medicine
DX: N17.9 Acute kidney failure, unspecified (principal)
CPT/HCPCS: 36415; 80048; 85025

== ENCOUNTER → 2024-04-16 | Outpatient (CLI) | payer MEDICARE, MEDICAID, SELFPAY ==
[2024-04-16 15:08] LABS: Absolute Lymphocyte Count 1.42 X10^3/uL (0.83-4.51); Absolute Neutrophil Count 1.5 X10^3/uL (2.0-7.7); Basophil# 0.01 X10^3/uL; Basophil% 0.3 % (0-1); Eosinophil# 0.04 X10^3/uL; Eosinophils% 1.2 % (0-5); Hematocrit 29.7 % (37-47); Hemoglobin 9.3 g/dL (12.0-15.0); Lymphocyte # 1.42 X10^3/ul (0.83-4.51); Lymphocyte % 42.3 % (19-41); Mean Corp Hgb Conc 31.3 g/dL (32-36); Mean Corpuscular Hgb 32.5 pg (27.0-32.0); Mean Corpuscular Volume 103.8 fL (81-99); Mean Platelet Vol. 10.9 fl (6.2-12.0); Monocyte# 0.36 X10^3/uL; Monocyte% 10.7 % (0-10); NRBC Flagged by Analyzer 0 % (0-5); Neutrophil # 1.52 X10^3/uL (2.7-7.7); Neutrophil % 45.2 % (47-70); POSITIVE COUNT YES; POSITIVE MORPHOLOGY YES; Platelet Count 85 K/mm3 (150-450); RBC Distribution Width CV 20.4 % (11.6-14.6); RBC Distribution Width SD 76.6 fl (35.1-43.9); Red Blood Count 2.86 M/mm3 (4.2-5.4); White Blood Count 3.4 K/mm3 (4.4-11.0)
[2024-04-16 15:09] LABS: Bacteria 0 SEEN /hpf (None Seen); Mucous, Urine 0 SEEN /hpf (<or=2+); Red Blood Cells-Urine 0 SEEN /hpf (0-5)
[2024-04-16 15:10] LABS: Differential Indicated SCAN CRITERIA MET
[2024-04-16 15:22] LABS: Color, Urine Yellow (Yellow); Glucose, Dipstick Normal (Normal); Ketone-Dipstick Negative (Negative); Leukocyte Esterase-Dipstick Negative /ul (Negative); Nitrite-Dipstick Negative (Negative); Occult Blood-Urine Negative /ul (Negative); Protein-Dipstick 15 mg/dl (Negative); Urine Bilirubin Dipstick Negative (Negative); Urine Clarity Clear (Clear); Urine Urobilinogen Normal (Normal)
[2024-04-16 15:33] LABS: Anisocytosis 2+; Platelet Estimate MOD DEC (ADEQ)
[2024-04-16 15:37] LABS: Squamous Epithelial Cells - UA 0-5 SEEN /hpf (5-10); White Blood Cells 0-5 SEEN /hpf (0-5)
[2024-04-16 16:12] LABS: ALB/GLOB Ratio 0.7 RATIO (0.9-2.4); AST(SGOT) 24 U/L (15-37); Alanine Aminotransfer ALT/SGPT 16 U/L (13-56); Albumin, Serum 2.9 g/dL (3.2-5.0); Alkaline Phosphatase 113 U/L (45-117); Anion Gap 7 (5-15); BUN 14 mg/dL (7-18); BUN/Creat Ratio 13.7 RATIO (10-20); Calcium,Total 9.1 mg/dL (8.5-10.1); Chloride 105 mmol/L (98-107); Cholesterol 242 mg/dL (200); Creatinine, Serum 1.02 mg/dL (0.55-1.02); EST Glomerular Filtration Rate 56 mL/min (>60); Est Glom Filt Rate - Afr Amer 67 mL/min (>60); Globulin 4.1 g/dL (2.2-4.2); Glucose 109 mg/dL (74-106); High Density Lipoprotein 70 mg/dL; Potassium 4.1 mmol/L (3.5-5.1); Sodium Level 140 mmol/L (136-145); Triglycerides 167 mg/dL; Very Low Density Lipoprotein 33 mg/dL (5-40)
== END | disposition home or self-care (01) ==
LOC: POLAB3 14:19
PROVIDERS: PCP Family Medicine Geriatric Medicine; Visit Provider Family Medicine Geriatric Medicine
DX: I10 Essential (primary) hypertension (principal); E55.9 Vitamin D deficiency, unspecified; E78.5 Hyperlipidemia, unspecified; N39.0 Urinary tract infection, site not specified
CPT/HCPCS: 36415; 80053; 80061; 81001; 82306; 84443; 85025; 87086

== ENCOUNTER → 2024-04-20 | Outpatient (CLI) | payer MEDICARE, MEDICAID, SELFPAY | END | disposition home or self-care (01) | LOC: POLAB3 09:57 | PROVIDERS: PCP Family Medicine Geriatric Medicine; Visit Provider Family Medicine Geriatric Medicine | DX: D64.9 Anemia, unspecified (principal) | CPT/HCPCS: 82274 ==

== ENCOUNTER 2024-05-14 10:27 | Day surgery (SDC) | payer MEDICARE, MEDICAID, SELFPAY ==
--- NOTE | 2024-05-10 16:57 | PAT.ANESEVAL ---
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 UNSURE OF DATE. Any Problems With Anesthesia No 05/10/24 12:14 Cholinesterase deficiency No 05/10/24 12:14 You/Your Family Experience No 05/10/24 12:14 fever (hyperthermia) with Relationship Recent Exposure to Contagious No 03/24/15 09:37 Disease Does patient have nerve No 05/10/24 12:14 stimulator Patient instructed to have device shut off --Does patient have Pacemaker or ICD? When Was Last Pacemaker Check QUESTION #4 FULL TEXT: You/Your Family Experience fever (hyperthermia) with Anesthesia Last Oral Intake Last Oral intake: Last Oral Intake NPO since Meds taken in AM with sips of water? Meds patient instructed to take am of surgery PONV PONV - brake lining finisher: PONV - brake lining finisher Female Yes 05/10/24 12:14 HX of Motion Sickness No 05/10/24 12:14 HX of N/V After Surgery No 05/10/24 12:14 Non-Smoker Yes 05/10/24 12:14 Duration of Surgery greater No 05/10/24 12:14 than 60 minutes Number of Risk Factors 2 05/10/24 12:14 PONV Score Moderate Risk 05/10/24 12:14 Height & Weight Height & Weight: Anesthesia: Height & Weight Height 5 ft 3 in 05/01/22 13:40 Respiratory Assessment Respiratory Assessment - brake lining finisher: Respiratory Tract Infection Hx - brake lining finisher Hx Respiratory Tract Infection No 05/10/24 12:14 STOP Sleep Apnea STOP Sleep Apnea - brake lining finisher: STOP Sleep Apnea - brake lining finisher Hx Hypertension Yes: CONTROLLED WITH MEDS 05/10/24 12:14 Hx Sleep Apnea No 05/10/24 12:14 CPAP No 11/13/17 02:54 BIPAP No 11/13/17 02:54 Do you snore loudly (louder No 05/10/24 12:14 than talking or can be heard Do you often feel tired/ No 05/10/24 12:14 fatigued/ sleepy during daytime? Has anyone observed you stop No 05/10/24 12:14 breathing during sleep? STOP Results Negative 05/10/24 12:14 QUESTION #5 FULL TEXT : Do you snore loudly (louder than talking or can be heard through closed doors)? Tobacco Use History Tobacco Use History - brake lining finisher: Tobacco Use History - brake lining finisher Tobacco Use Smoking Status Former smoker 05/10/24 12:14 Hx Tobacco Use No 05/10/24 12:14 Years Smoking Packs Smoked per Day Smoking Cessation Date was No - quit smoking greater 05/10/24 12:14 within the last 15 years than 15 years ago Hx Smoking Cessation Date Hx Smoking Cessation No 05/10/24 12:14 Counseling Hematologic Medial History Hematologic Hx - brake lining finisher: Hematologic Medical Hx - case consultant Hx of Blood Transfusion No 05/10/24 12:14 Hx of Transfusion in last 3 No 05/10/24 12:14 Months Date of Last Transfusion (if within last 3 months) Ever experience any problems No 05/10/24 12:14 with transfusion(s)? Specify any problems Hx of Preganancy in last 3 No 05/10/24 12:14 Months Nurse Filling Out Transfusion [email or web address] 05/10/24 12:14 & Questions: Date: 05/10/24 05/10/24 12:14 Time: 12:17 05/10/24 12:14 Patient unable to answer at this time (ie. confused, unrespo /Reproduction History /Reproductive History - brake lining finisher: /Reproductive Hx- brake lining finisher Hx Now Gestational Age (in weeks): EDC: Hx Hx Para Hx Section SAB PFSH Medical History Ambulates with cane Wears dentures Wears glasses Depression Anxiety Former smoker Back pain Shortness of breath on exertion Port-A-Cath in place UTI (urinary tract infection) Fecal impaction Vitamin D deficiency GERD (gastroesophageal reflux disease) Polyneuropathy Closed head injury Cellulitis of right leg Malignant pleural effusion Recurrent left pleural effusion Cataract Ovarian cancer Wound of right lower extremity Cat scratch of right lower leg Segmental and somatic dysfunction of lumbar region Segmental and somatic dysfunction of pelvic region DDD (degenerative disc disease), lumbar TIA (transient ischemic attack) Hypertension Osteoarthritis Home Medications ?Medication ?Instructions ?Recorded ?Last Taken ?Type cholecalciferol (vitamin D3) 25 1,000 unit PO DAILY 03/13/15 Unknown History mcg (1,000 unit) tablet (Vitamin D3) nitroglycerin 0.4 mg sublingual 0.4 mg sublingual Q5M PRN Chest 03/13/15 Unknown History tablet Pain acetaminophen 325 mg tablet 650 mg (2 x 325 mg) PO Q4H PRN PRN 04/08/15 Unknown Rx (Tylenol) Mild Pain (0-3/10)/Headache #0 TABLETS aspirin 81 mg tablet 81 mg PO DAILY 03/21/22 05/10/24 History gabapentin 100 mg capsule 100 mg PO 4X/DAY 03/21/22 Unknown History losartan 50 mg tablet 50 mg PO DAILY bp 03/21/22 Unknown History ascorbic acid (vitamin C) 500 mg 1,000 mg PO BID 05/03/24 Unknown History capsule ondansetron HCl 4 mg tablet 4 mg PO Q4H PRN nausea 05/03/24 Unknown History bisacodyl 5 mg tablet,delayed 5 mg PO ONCE #4 tabs 05/08/24 Unknown Rx release (Dulcolax (bisacodyl)) polyethylene glycol 3350 17 238 g PO ONCE #238 grams 05/08/24 Unknown Rx gram/dose oral powder omeprazole 40 mg capsule,delayed 40 mg PO DAILY 05/10/24 Unknown History release oxycodone 5 mg tablet 5 - 10 mg PO Q6H PRN PRN moderate 05/10/24 Unknown History pain valsartan 320 mg tablet 320 mg PO DAILY 05/10/24 Unknown History venlafaxine 150 mg 150 mg PO DAILY 05/10/24 Unknown History capsule,extended release 24 hr Allergy/AdvReac Type Severity Reaction Status Date / Time Penicillins AdvReac Upset Verified 05/10/24 12:08 Stomach Family History Mother Hypertension Myocardial infarction Father Suicide Surgical History Previous back surgery History of tonsillectomy History of hysterectomy S/P total hip arthroplasty Social History Smoking Status: Former smoker alcohol intake: never substance use type: does not use what type of physical activity do you participate in: none Audit: Pertinent Findings Pertinent Findings EKG Perinent findings: November 12, 2017. Sinus bradycardia at 57 bpm. Echo (EF%) pertinent findings: November 14, 2017. Ejection fraction 65%. Right ventricular systolic pressure is 27 mmHg. Pulmonary function results/spirometer pertinent findings: March 11, 2017. Pulmonary function tests are within normal limits Recommendation Anesthesia Recommendation Anesthesia recommendation: OPTIMIZED for anesthesia
--- NOTE | 2024-05-14 11:07 | PCM.PRE.AN2 ---
ASA Classification* ASA Classification ASA Classification: 3 Assessment & Plan Anesthesia* Anesthesia Assessment Anesthesia Assessment: Discussed sedation and/or anesthesia options, risks, benefits, and alternatives with patient/parents/legal guardian/POA. Questions invited. The patient/parents/legal guardian/POA seems to understand and agrees to proceed with anesthesia plan. Reviewed the physical assessment, medical history, allergy history and patient home medications list prior to surgery/procedure/anesthetic and documented any changes. Performed airway and anesthesia risk assessments. Anesthesia Type Anesthesia Type: MAC Anesthesia Focused Assessment* Airway Assessment Mouth opens: >3 cm Mallampati Score: II Focused Labs Anesthesia Preop lab: CBC WBC 3.4 K/mm3 (4.4-11.0) L 04/16/24 14:20 RBC 2.86 M/mm3 (4.2-5.4) L 04/16/24 14:20 Hgb 9.3 g/dL (12.0-15.0) L 04/16/24 14:20 Hct 29.7 % (37-47) L 04/16/24 14:20 Plt Count 85 K/mm3 (150-450) L 04/16/24 14:20 CHEMISTRY Potassium 4.1 mmol/L (3.5-5.1) 04/16/24 14:20 Sodium 140 mmol/L (136-145) 04/16/24 14:20 BUN 14 mg/dL (7-18) 04/16/24 14:20 Creatinine 1.02 mg/dL (0.55-1.02) 04/16/24 14:20 Glucose 109 mg/dL (74-106) H 04/16/24 14:20 POC Glucose 109 mg/dL (70-110) 11/13/17 00:18 TSH 1.320 uIU/mL (0.358-3.740) 04/16/24 14:20 COAG PT 12.5 SECONDS (11.7-14.9) 11/12/17 22:55 Pre-Assessment Diagnosis/Proposed Procedure Planned Operative Procedure(s): EGD, COLONOSCOPY Anesthesia History Anesthesia History - chemical analytical sampler: Anesthesia History - chemical analytical sampler Hx Hospitalization Yes: FLUID ON LUNGS, [place] 05/10/24 12:14 [place]. UNSURE OF DATE. Any Problems With Anesthesia No 05/10/24 12:14 Cholinesterase deficiency No 05/10/24 12:14 You/Your Family Experience No 05/10/24 12:14 fever (hyperthermia) with Relationship Recent Exposure to Contagious No 03/24/15 09:37 Disease Does patient have nerve No 05/10/24 12:14 stimulator Patient instructed to have device shut off --Does patient have Pacemaker or ICD? When Was Last Pacemaker Check QUESTION #4 FULL TEXT: You/Your Family Experience fever (hyperthermia) with Anesthesia Last Oral Intake Last Oral intake: Last Oral Intake NPO since Meds taken in AM with sips of water? Meds patient instructed to take am of surgery PONV PONV - chemical analytical sampler: PONV - chemical analytical sampler Female Yes 05/10/24 12:14 HX of Motion Sickness No 05/10/24 12:14 HX of N/V After Surgery No 05/10/24 12:14 Non-Smoker Yes 05/10/24 12:14 Duration of Surgery greater No 05/10/24 12:14 than 60 minutes Number of Risk Factors 2 05/10/24 12:14 PONV Score Moderate Risk 05/10/24 12:14 Height & Weight Height & Weight: Anesthesia: Height & Weight Height 5 ft 3 in 05/01/22 13:40 Respiratory Assessment Respiratory Assessment - chemical analytical sampler: Respiratory Tract Infection Hx - chemical analytical sampler Hx Respiratory Tract Infection No 05/10/24 12:14 STOP Sleep Apnea STOP Sleep Apnea - chemical analytical sampler: STOP Sleep Apnea - chemical analytical sampler Hx Hypertension Yes: CONTROLLED WITH MEDS 05/10/24 12:14 Hx Sleep Apnea No 05/10/24 12:14 CPAP No 11/13/17 02:54 BIPAP No 11/13/17 02:54 Do you snore loudly (louder No 05/10/24 12:14 than talking or can be heard Do you often feel tired/ No 05/10/24 12:14 fatigued/ sleepy during daytime? Has anyone observed you stop No 05/10/24 12:14 breathing during sleep? STOP Results Negative 05/10/24 12:14 QUESTION #5 FULL TEXT : Do you snore loudly (louder than talking or can be heard through closed doors)? Tobacco Use History Tobacco Use History - chemical analytical sampler: Tobacco Use History - chemical analytical sampler Tobacco Use Smoking Status Former smoker 05/10/24 12:14 Hx Tobacco Use No 05/10/24 12:14 Years Smoking Packs Smoked per Day Smoking Cessation Date was No - quit smoking greater 05/10/24 12:14 within the last 15 years than 15 years ago Hx Smoking Cessation Date Hx Smoking Cessation No 05/10/24 12:14 Counseling Hematologic Medial History Hematologic Hx - chemical analytical sampler: Hematologic Medical Hx - social media intern Hx of Blood Transfusion No 05/10/24 12:14 Hx of Transfusion in last 3 No 05/10/24 12:14 Months Date of Last Transfusion (if within last 3 months) Ever experience any problems No 05/10/24 12:14 with transfusion(s)? Specify any problems Hx of Preganancy in last 3 No 05/10/24 12:14 Months Nurse Filling Out Transfusion [email or web address] 05/10/24 12:14 & Questions: Date: 05/10/24 05/10/24 12:14 Time: 12:17 05/10/24 12:14 Patient unable to answer at this time (ie. confused, unrespo /Reproduction History /Reproductive History - chemical analytical sampler: /Reproductive Hx- chemical analytical sampler Hx Now Gestational Age (in weeks): EDC: Hx Hx Para Hx Section SAB PFSH Medical History Ambulates with cane Wears dentures Wears glasses Depression Anxiety Former smoker Back pain Shortness of breath on exertion Port-A-Cath in place UTI (urinary tract infection) Fecal impaction Vitamin D deficiency GERD (gastroesophageal reflux disease) Polyneuropathy Closed head injury Cellulitis of right leg Malignant pleural effusion Recurrent left pleural effusion Cataract Ovarian cancer Wound of right lower extremity Cat scratch of right lower leg Segmental and somatic dysfunction of lumbar region Segmental and somatic dysfunction of pelvic region DDD (degenerative disc disease), lumbar TIA (transient ischemic attack) Hypertension Osteoarthritis Home Medications ?Medication ?Instructions ?Recorded ?Last Taken ?Type cholecalciferol (vitamin D3) 25 1,000 unit PO DAILY 03/13/15 Unknown History mcg (1,000 unit) tablet (Vitamin D3) nitroglycerin 0.4 mg sublingual 0.4 mg sublingual Q5M PRN Chest 03/13/15 Unknown History tablet Pain acetaminophen 325 mg tablet 650 mg (2 x 325 mg) PO Q4H PRN PRN 04/08/15 Unknown Rx (Tylenol) Mild Pain (0-3/10)/Headache #0 TABLETS aspirin 81 mg tablet 81 mg PO DAILY 03/21/22 05/10/24 History gabapentin 100 mg capsule 100 mg PO 4X/DAY 03/21/22 Unknown History losartan 50 mg tablet 50 mg PO DAILY bp 03/21/22 Unknown History ascorbic acid (vitamin C) 500 mg 1,000 mg PO BID 05/03/24 Unknown History capsule ondansetron HCl 4 mg tablet 4 mg PO Q4H PRN nausea 05/03/24 Unknown History bisacodyl 5 mg tablet,delayed 5 mg PO ONCE #4 tabs 05/08/24 Unknown Rx release (Dulcolax (bisacodyl)) polyethylene glycol 3350 17 238 g PO ONCE #238 grams 05/08/24 Unknown Rx gram/dose oral powder omeprazole 40 mg capsule,delayed 40 mg PO DAILY 05/10/24 Unknown History release oxycodone 5 mg tablet 5 - 10 mg PO Q6H PRN PRN moderate 05/10/24 Unknown History pain valsartan 320 mg tablet 320 mg PO DAILY 05/10/24 Unknown History venlafaxine 150 mg 150 mg PO DAILY 05/10/24 Unknown History capsule,extended release 24 hr Allergy/AdvReac Type Severity Reaction Status Date / Time Penicillins AdvReac Upset Verified 05/10/24 12:08 Stomach Family History Mother Hypertension Myocardial infarction Father Suicide Surgical History Previous back surgery History of tonsillectomy History of hysterectomy S/P total hip arthroplasty Social History Smoking Status: Former smoker alcohol intake: never substance use type: does not use what type of physical activity do you participate in: none Review of Systems (Anesthesia) ROS Narrative System reviewed and no additional complaints, except as documented.
[2024-05-14 11:14] VITALS: BP 151/81; PULSE 76; RESP 18; TEMP 35.5; O2SAT 100; BMI 25.2
--- NOTE | 2024-05-14 12:00 | IMM_PTH ---
PATIENT: JOANIE RAMIREZ LOC: EN U#:[id number] AGE/SX: 79/F ROOM: RE05/14/[address]: Dr. Bennie Ramos DO : 1945 BED: DIS: 05/14/2024 SPEC #: [id number] RECD: 05/15/24 11:51 STATUS: ZAYDA REQ #: [id number] SONYA: 05/14/24 12:[address]: Bennie Ramos DEPT: IMMUNOHISTOCHEMISTRY RECD BY: Maciej Rivero ENTERED: 05/15/24 11:51 SP TYPE: IMMUNO OTHR DR: Dr. Reynold Samayoa MD Tissues: A - Gastric mucous membrane Procedures: H Pylori (initial) PHYSICIAN & INSTITUTION [place] [id number] SPECIMEN INFORMATION: Tissue Source: A- Gastric poly biopsy Clinical Info: Anemia Specimen Number: [id number] CPT code: 32647 METHODOLOGY: Deparaffinized sections of prefer/formalin-fixed tissue or PAP/DQ stained slides are incubated with monoclonal/polyclonal antibodies/oligonucleotide probes. Localization is made via biotin free immunoperoxidase method. Appropriate controls are performed and reacted as expected. Results on target cell population are indicated in the following table: RESULTS: ANTIBODY / CLONE RESULT Block A H Pylori (polyclonal) Negative for H. pylori organisms These tests were developed and their performance characteristics determined by [facility]. They may not have been cleared or approved by the U.S. Food and Drug Administration. The FDA has determined that such clearance or approval is not necessary. The above immunohistochemical/dual BRIGETTE markers are ordered and reviewed by the Pathologist. INTERPRETATION: A. Gastric polyp, biopsy: An immunohistochemical stain foe H. pylori with appropriate controls is negative. FABY, 05/17/2024
--- NOTE | 2024-05-14 12:00 | EGD_PTH ---
PATIENT: JOANIE RAMIREZ LOC: EN U#:[id number] AGE/SX: 79/F ROOM: RE05/14/[address]: Dr. Bennie Ramos DO : 1945 BED: DIS: 05/14/2024 SPEC #: [id number] RECD: 05/15/24 10:44 STATUS: ZAYDA REIgor #: [id number] SONYA: 05/14/24 12:[address]: Bennie Ramos DEPT: SURGICAL PATHOLOGY RECD BY: Ronda Tierney ENTERED: 05/15/24 10:44 SP TYPE: EGD BIOPSY JESSICA DR: Dr. Reynold Samayoa MD Tissues: A - Gastric mucous membrane B - Transverse colon Procedures: Surgery Specimen Level IV HEADER OPERATION: Colonoscopy with polypectomy and tattoo and clip applied PRE-OP DIAGNOSIS: Anemia TISSUE SUBMITTED: A- Gastric polyp biopsy, B- Transverse colon polyp MICROSCOPIC DIAGNOSIS A. Gastric Polyp, Biopsy: 1. Fundic Gland Polyp 2. Negative for H. pylori by immunohistochemical stain (See Comment) 3. Oxyntic Mucosa 4. No erosions, ulcers, gastritis, or dysplasia B. Transverse Colon Polyp, Biopsy: 1. Negative for malignancy 2. Edematous colonic mucosa with autolysis (See Comment) 3. No definitive dysplasia, colitis, or carcinoma COMMENT A. The results of immunohistochemistry for Helicobacter pylori will be reported separately ([id number]). B. Specimen interpretation is severely limited by autolytic changes. MICROSCOPIC DESCRIPTION Slides are reviewed. GROSS DESCRIPTION A. Received in fixative is one container labeled with the patient's name and designated Gastric polyp biopsy. The specimen consists of two irregular fragments of light quiorz soft tissue that in aggregate measure 0.6 x 0.4 x 0.1 cm. The specimen is totally submitted in one cassette. B. Received in fixative is one container labeled with the patient's name and designated Transverse colon polyp. The specimen consists of a quiroz-pink polyp measuring 1.0 x 1.0 x 0.5cm. Apparent base is inked black. The polyp is bisected. Also present in the container are multiple fragments of quiroz soft tissue mixed with fecal material in aggregate 1.0 x 0.5 x 0.1cm. The entire specimen is submitted in one cassette. 05/15/2024 TC: CPT:31340r2
--- NOTE | 2024-05-14 12:26 | PCM.HP.STD ---
HPI - General General Date of Admission: 05/14/24 Date of Service: 05/14/24 Chief Complaint: Iron deficiency anemia HPI Narrative JOANIE RAMIREZ, is a 79 F who presents to the office today for initial consult. *I established 05.08.[address] Samayoa for positive fecal occult. Pt reports that she is in the end stages of ovarian cancer and has been on chemo therapy for the past 4 years. Pt reports nausea due to chemotherapy, states that Zofran is effective. Pt reports that she is not eating very much and is having a bm every few days; has not seen blood in her stool. Pt reports that she can not remember when her last EGD and Colonoscopy were. She has been experiencing about a 20 pound weight loss that she thinks is secondary to not eating from chemotherapy. She does complain of, bloating, constipation. She denies any chest pain or shortness of breath. Her recent laboratory analysis does show worsening pancytopenia. She is status post total abdominal hysterectomy secondary to ovarian cancer. Patient says during that abdominal surgery 4 years ago she had positive lymph nodes. She has only been on chemotherapy and not received any radiation to her abdomen. [facility]LY [facility] Medical History Ambulates with cane Wears dentures Wears glasses Depression Anxiety Former smoker Back pain Shortness of breath on exertion Port-A-Cath in place UTI (urinary tract infection) Fecal impaction Vitamin D deficiency GERD (gastroesophageal reflux disease) Polyneuropathy Closed head injury Cellulitis of right leg Malignant pleural effusion Recurrent left pleural effusion Cataract Ovarian cancer Wound of right lower extremity Cat scratch of right lower leg Segmental and somatic dysfunction of lumbar region Segmental and somatic dysfunction of pelvic region DDD (degenerative disc disease), lumbar TIA (transient ischemic attack) Hypertension Osteoarthritis Home Medications ?Medication ?Instructions ?Recorded ?Last Taken ?Type cholecalciferol (vitamin D3) 25 1,000 unit PO DAILY 03/13/15 Unknown History mcg (1,000 unit) tablet (Vitamin D3) nitroglycerin 0.4 mg sublingual 0.4 mg sublingual Q5M PRN Chest 03/13/15 Unknown History tablet Pain acetaminophen 325 mg tablet 650 mg (2 x 325 mg) PO Q4H PRN PRN 04/08/15 Unknown Rx (Tylenol) Mild Pain (0-3/10)/Headache #0 TABLETS aspirin 81 mg tablet 81 mg PO DAILY 03/21/22 05/10/24 History gabapentin 100 mg capsule 100 mg PO 4X/DAY 03/21/22 Unknown History losartan 50 mg tablet 50 mg PO DAILY bp 03/21/22 05/14/24 History ascorbic acid (vitamin C) 500 mg 1,000 mg PO BID 05/03/24 Unknown History capsule ondansetron HCl 4 mg tablet 4 mg PO Q4H PRN nausea 05/03/24 Unknown History bisacodyl 5 mg tablet,delayed 5 mg PO ONCE #4 tabs 05/08/24 Unknown Rx release (Dulcolax (bisacodyl)) polyethylene glycol 3350 17 238 g PO ONCE #238 grams 05/08/24 Unknown Rx gram/dose oral powder omeprazole 40 mg capsule,delayed 40 mg PO DAILY 05/10/24 Unknown History release oxycodone 5 mg tablet 5 - 10 mg PO Q6H PRN PRN moderate 05/10/24 05/14/24 History pain valsartan 320 mg tablet 320 mg PO DAILY 05/10/24 05/14/24 09:00 History venlafaxine 150 mg 150 mg PO DAILY 05/10/24 Unknown History capsule,extended release 24 hr Allergy/AdvReac Type Severity Reaction Status Date / Time Penicillins AdvReac Upset Verified 05/10/24 12:08 Stomach Family History Mother Hypertension Myocardial infarction Father Suicide Surgical History Previous back surgery History of tonsillectomy History of hysterectomy S/P total hip arthroplasty Social History Smoking Status: Former smoker alcohol intake: never substance use type: does not use what type of physical activity do you participate in: none ROS Constitutional Constitutional: Denies fatigue, fever(s), poor appetite, weight gain or weight loss Gastrointestinal Gastrointestinal: Denies belching, bloating, change in bowel habits, change in stool character, chewing difficulty, coffee ground emesis, constipation, cramping, diarrhea, dyspepsia, dysphagia, early satiety, excessive flatus, fecal incontinence, heartburn, hematemesis, hematochezia, hemorrhoids, loose stools, melena, nausea, odynophagia, rectal bleeding, tenesmus, vomiting or weight changes Vital Signs Vital Signs Vital Signs: 05/14/24 11:14 05/14/24 11:14 Temperature 96 F L Temperature Source Temporal Pulse Rate 76 Respiratory Rate 18 Respiratory Pattern Normal Blood Pressure 151/81 H Blood Pressure Mean 104 Blood Pressure Source Monitor Blood Pressure Position Semi-Fowlers Blood Pressure Location Left Arm Pulse Ox 100 Oxygen Delivery Method Nasal Cannula Oxygen Flow Rate (L/min) 2 Weight Weight: 142 lb 13.753 oz Body Mass Index (BMI) 25.2 Physical Exam Const alert, oriented x3 and no apparent distress General Appearance: cooperative, comfortable and well kempt HEENT normocephalic, head/scalp atraumatic and hearing grossly normal bilaterally Eyes EOMs intact bilaterally General Eye: normal appearance of both eyes Neck General: normal visual inspection Resp normal respiratory effort and normal air movement Effort and Inspection: able to speak in complete sentences Cardio regular rate, regular rhythm, S1 normal heart sound and S2 normal heart sound GI soft to palpation and non-tender Extremity General Extremity: edema Skin Wounds: wounds noted size Size: See clinical chart, bed beefy red and crusted, margins well defined and surrounding erythema, no odor, open and surrounding erythema Neuro oriented x3, CN's II-XII intact bilaterally and moves all extremities Psych mental status grossly normal, thought process normal, cooperative and affect normal Assessment & Plan Assessment/Plan (1) Occult blood in stools: (2) Ovarian cancer: (3) Iron deficiency anemia: PLAN: Plan Assessment and Plan Assessment and Plan (1) Anemia: (2) Ovarian cancer: Status: Acute (3) Occult blood in stools: Status: Acute Plan: 79-year-old with past medical history of ovarian cancer status post total abdominal hysterectomy with bilateral fallopian tube removal. She is on salvage chemotherapy as per the patient. She has blood in her stool and pancytopenia. Differential diagnosis does include gastric antral vascular ectasia, angiodysplasia, neoplasia. She should undergo an upper and lower endoscopy to evaluate upper lower GI tract. She was explained alternatives, risk and benefits include understanding bleeding, infection, sepsis, perforation, need for urgent . She will have an ASA of 3.
[2024-05-14 13:15] VITALS: BP 146/58; BP 151/81; PULSE 71; RESP 16; TEMP 37.1; O2SAT 96
--- NOTE | 2024-05-14 13:17 | OP.EGD_ITS ---
Patient Name: Hawa Saini Procedure Date: 05/14/2024 12:29 PM Date of : 1945 Age: 79 Procedure: Upper GI endoscopy Indications: Iron deficiency anemia Providers: DO Sarika Mathur MD: Reynold Samayoa MD Medicines: Monitored Anesthesia Care Patient Profile: This is a 79 year old female. Refer to note in patient chart for documentation of history and physical. Complications: No immediate complications. Procedure: Pre-Anesthesia Assessment: - Prior to the procedure, a History and Physical was performed, and patient medications and allergies were reviewed. The patient is competent. The risks and benefits of the procedure and the sedation options and risks were discussed with the patient. All questions were answered and informed consent was obtained. Patient identification and proposed procedure were verified by the physician in the pre-procedure area. Mental Status Examination: alert and oriented. Airway Examination: normal oropharyngeal airway and neck mobility. Respiratory Examination: clear to auscultation. CV Examination: normal. Prophylactic Antibiotics: The patient does not require prophylactic antibiotics. Prior Anticoagulants: The patient has taken no anticoagulant or antiplatelet agents except for NSAID medication. ASA Grade Assessment: III - A patient with severe systemic disease. After reviewing the risks and benefits, the patient was deemed in satisfactory condition to undergo the procedure. The anesthesia plan was to use monitored anesthesia care (MAC). Immediately prior to administration of medications, the patient was re-assessed for adequacy to receive sedatives. The heart rate, respiratory rate, oxygen saturations, blood pressure, adequacy of pulmonary ventilation, and response to care were monitored throughout the procedure. The physical status of the patient was re-assessed after the procedure. After obtaining informed consent, the endoscope was passed under direct vision. Throughout the procedure, the patient's blood pressure, pulse, and oxygen saturations were monitored continuously. The Colonoscope was introduced through the mouth, and advanced to the second part of duodenum. The upper GI endoscopy was accomplished without difficulty. The patient tolerated the procedure well. Scope In: 12:42:03 PM Scope Out: 12:48:07 PM Total Procedure Duration Time 0 hours 6 minutes 4 seconds Findings: No gross lesions were noted in the entire esophagus. A single 5 mm sessile polyp with bleeding and stigmata of recent bleeding was found in the gastric fundus. The polyp was removed with a jumbo cold forceps. Resection and retrieval were complete. Verification of patient identification for the specimen was done. Estimated blood loss was minimal. No gross lesions were noted in the second portion of the duodenum. A medium-sized hiatal hernia was present. Impression: - No gross lesions in the entire esophagus. - A single gastric polyp. Resected and retrieved. - No gross lesions in the second portion of the duodenum. Recommendation: - Discharge patient to home. - Resume previous diet. - Continue present medications. - Await pathology results. Procedure Code(s): --- Professional --- 69952, Esophagogastroduodenoscopy, flexible, transoral; with biopsy, single or multiple CPT copyright 2021 [employer]. All rights reserved. The codes documented in this report are preliminary and upon creative intern review may be revised to meet current compliance requirements. Bennie Ramos DO 05/14/2024 1:16:32 PM This report has been signed electronically. Number of Addenda: 0 Note Initiated On: 05/14/2024 12:29 PM
--- NOTE | 2024-05-14 13:17 | OP.CCLET_ITS ---
05/14/2024 Reynold Samayoa MD [address] [place] [address] Re : Upper GI endoscopy procedure for Hawa Saini Dear Dr. Samayoa This procedure was performed on Tuesday, May 14, 2024. My impressions and recommendations are as follows: Impressions : - No gross lesions in the entire esophagus. - A single gastric polyp. Resected and retrieved. - No gross lesions in the second portion of the duodenum. Recommendations : - Discharge patient to home. - Resume previous diet. - Continue present medications. - Await pathology results. My findings are described in the full procedure note, which is enclosed. If I can be of further assistance, please feel free to contact me at . Sincerely, Bennie Ramos, 05/14/2024 1:16:32 PM This report has been signed electronically.
[2024-05-14 13:19] VITALS: BP 146/58; PULSE 74; RESP 16; TEMP 37.1; O2SAT 100
--- NOTE | 2024-05-14 13:19 | PCM.POST.ANE ---
Anesthesia: Postop Eval I Current Vital Signs Temperature: 98.8 F Pulse Rate: 74 Blood Pressure: 146/58 Respiratory Rate: 16 Pulse Ox: 100 Oxygen Delivery Method: Room Air Assessment Airway patent: Yes Spontaneous unlabored respirations: Yes Mental status: Awake and Calm nausea: No Vomiting: No Anesthesia Complication: No Fluid Hydration Crystalloid volume administer (ml): 60 Total IV fluid infused: 60 Progress Note Anesthesia document: Postop Eval 1 completed: Yes
[2024-05-14 13:20] VITALS: BP 151/65; BP 151/81; PULSE 68; RESP 16; O2SAT 94
--- NOTE | 2024-05-14 13:22 | OP.COLON_ITS ---
Patient Name: Hawa Saini Procedure Date: 05/14/2024 12:48 PM Date of : 1945 Age: 79 Procedure: Colonoscopy Indications: Iron deficiency anemia Providers: Bennie Ramos DO Referring MD: Reynold Samayoa MD Medicines: Monitored Anesthesia Care Patient Profile: This is a 79 year old female. Refer to note in patient chart for documentation of history and physical. Last Colonoscopy: date unknown. Unable to locate last colonoscopy report. Complications: No immediate complications. Procedure: Pre-Anesthesia Assessment: - Prior to the procedure, a History and Physical was performed, and patient medications and allergies were reviewed. The patient is competent. The risks and benefits of the procedure and the sedation options and risks were discussed with the patient. All questions were answered and informed consent was obtained. Patient identification and proposed procedure were verified by the physician in the pre-procedure area. Mental Status Examination: alert and oriented. Airway Examination: normal oropharyngeal airway and neck mobility. Respiratory Examination: clear to auscultation. CV Examination: normal. Prophylactic Antibiotics: The patient does not require prophylactic antibiotics. Prior Anticoagulants: The patient has taken no anticoagulant or antiplatelet agents except for NSAID medication. ASA Grade Assessment: III - A patient with severe systemic disease. After reviewing the risks and benefits, the patient was deemed in satisfactory condition to undergo the procedure. The anesthesia plan was to use monitored anesthesia care (MAC). Immediately prior to administration of medications, the patient was re-assessed for adequacy to receive sedatives. The heart rate, respiratory rate, oxygen saturations, blood pressure, adequacy of pulmonary ventilation, and response to care were monitored throughout the procedure. The physical status of the patient was re-assessed after the procedure. After I obtained informed consent, the scope was passed under direct vision. Throughout the procedure, the patient's blood pressure, pulse, and oxygen saturations were monitored continuously. The Colonoscope was introduced through the anus and advanced to the cecum, identified by appendiceal orifice and ileocecal valve. The colonoscopy was performed without difficulty. The patient tolerated the procedure well. The quality of the bowel preparation was adequate. The ileocecal valve, appendiceal orifice, and rectum were photographed. Scope In: 12:50:41 PM Scope Withdrawal Time 0 hours 5 minutes 34 seconds Scope Out: 1:08:43 PM Total Procedure Duration Time 0 hours 18 minutes 2 seconds Findings: The perianal and digital rectal examinations were normal. A 13 mm polyp was found in the transverse colon. The polyp was sessile. The polyp was removed with a hot snare. Resection and retrieval were complete. Area was tattooed with an injection of 1 mL of Maryellen ink. For location marking, one hemostatic clip was successfully placed. Clip pipeline dispatcher: Miyaobabei. There was no bleeding at the end of the procedure. Two small localized angiodysplastic lesions with bleeding were found in the recto-sigmoid colon and in the sigmoid colon. Coagulation for hemostasis using monopolar probe was successful. Estimated blood loss was minimal. Multiple small-mouthed diverticula were found in the recto-sigmoid colon, sigmoid colon and cecum. Impression: - One 13 mm polyp in the transverse colon, removed with a hot snare. Resected and retrieved. Tattooed. Clip was placed. Clip pipeline dispatcher: Miyaobabei. - Two bleeding colonic angiodysplastic lesions. Treated with a monopolar probe. - Diverticulosis in the recto-sigmoid colon, in the sigmoid colon and in the cecum. Recommendation: - Discharge patient to home. - Resume previous diet. - Continue present medications. - Await pathology results. - Repeat colonoscopy for surveillance. Procedure Code(s): --- Professional --- 54861, 59, Colonoscopy, flexible; with control of bleeding, any method 58559, Colonoscopy, flexible; with removal of tumor(s), polyp(s), or other lesion(s) by snare technique 39894, 59, Colonoscopy, flexible; with directed submucosal injection(s), any substance 20648, Unlisted procedure, colon CPT copyright 2021 [employer]. All rights reserved. The codes documented in this report are preliminary and upon honing machine operator semiautomatic review may be revised to meet current compliance requirements. Bennie Ramos DO 05/14/2024 1:22:02 PM This report has been signed electronically. Number of Addenda: 0 Note Initiated On: 05/14/2024 12:48 PM
--- NOTE | 2024-05-14 13:22 | OP.CCLET_ITS ---
05/14/2024 Reynold Samayoa MD [address] [place] [address] Re : Colonoscopy procedure for Hawa Saini Dear Dr. Samayoa This procedure was performed on Tuesday, May 14, 2024. My impressions and recommendations are as follows: Impressions : - One 13 mm polyp in the transverse colon, removed with a hot snare. Resected and retrieved. Tattooed. Clip was placed. Clip cloth washer operator: [employer]. - Two bleeding colonic angiodysplastic lesions. Treated with a monopolar probe. - Diverticulosis in the recto-sigmoid colon, in the sigmoid colon and in the cecum. Recommendations : - Discharge patient to home. - Resume previous diet. - Continue present medications. - Await pathology results. - Repeat colonoscopy for surveillance. My findings are described in the full procedure note, which is enclosed. If I can be of further assistance, please feel free to contact me at . Sincerely, Bennie Ramos, 05/14/2024 1:22:02 PM This report has been signed electronically.
[2024-05-14 13:26] VITALS: BP 140/67; BP 151/81; PULSE 77; RESP 16; TEMP 36.7; O2SAT 97
[2024-05-14 13:47] VITALS: BP 151/81
--- NOTE | 2024-05-14 14:10 | PCM.POSTANE2 ---
Anesthesia Postop Eval I Sum Postop Eval Completion status Anesthesia document: Postop Eval 1 completed: Yes Anesthesia Postop Eval I Summary Anesthesia Postop Eval I Summary: Anesthesia Postop Eval I: Assessment Summary Airway patent Yes 05/14/24 13:19 [email or web address] Spontaneous unlabored Yes 05/14/24 13:19 [email or web address] respirations Mental status Awake,Calm 05/14/24 13:19 [email or web address] nausea No 05/14/24 13:19 [email or web address] Vomiting No 05/14/24 13:19 [email or web address] Anesthesia Postop Eval I: Fluid Summary Crystalloid volume administer 60 05/14/24 13:19 [email or web address] (ml) Colloids volume administered ( ml) Blood Product volume administered (ml) Total IV fluid infused 60 05/14/24 13:19 [email or web address] Anesthesia Postop Eval I: Summary Notes Anesthesia Complication No 05/14/24 13:19 [email or web address] Anesthesia Complication Comment: Post-operative progress note Anesthesia: Postop Eval II Evaluation Mental status: Awake and Calm Pain Level: 0 nausea: No Vomiting: No Complications Anesthesia Complication: No
== END 2024-05-14 14:12 | disposition home or self-care (01) ==
LOC: EN 10:30 → AC 10:54
PROVIDERS: PCP Family Medicine Geriatric Medicine; Referring Provider Family Medicine Geriatric Medicine; Visit Provider Internal Medicine Gastroenterology
PROC: 0DJD8ZZ Inspection of Lower Intestinal Tract, Via Natural or Artificial Opening Endoscopic (ICD-10-PCS; CPT 45378; principal; 2024-05-14 11:55)
DX: D50.9 Iron deficiency anemia, unspecified (principal); K21.9 Gastro-esophageal reflux disease without esophagitis; I10 Essential (primary) hypertension; K31.7 Polyp of stomach and duodenum; K63.5 Polyp of colon; K57.30 Diverticulosis of large intestine without perforation or abscess without bleeding; K44.9 Diaphragmatic hernia without obstruction or gangrene; Z79.82 Long term (current) use of aspirin; Z87.891 Personal history of nicotine dependence; Z79.899 Other long term (current) drug therapy; Z86.73 Personal history of transient ischemic attack (TIA), and cerebral infarction without residual deficits
CPT/HCPCS: 45381; 45385 ×2; 45382; 43239; 88305; 88342; A4216; A4648; J2405

== ENCOUNTER → 2024-07-17 | Outpatient (CLI) | payer MEDICARE, MEDICAID, SELFPAY ==
--- NOTE | 2024-07-17 12:03 | RAD_ITS ---
EXAM: XR Chest, 2 Views CLINICAL INDICATION: SOB TECHNIQUE: Frontal and lateral views of the chest. COMPARISON: No relevant prior studies available. FINDINGS: LUNGS AND PLEURAL SPACES: Bibasilar atelectasis or pneumonia. Pulmonary venous congestion. HEART: Unremarkable. No cardiomegaly. MEDIASTINUM: Unremarkable. Normal mediastinal contour. BONES/JOINTS: Unremarkable. No acute fracture. TUBES, LINES AND DEVICES: Left-sided Mediport with the distal tip in the SVC. No pneumothorax. RAD/Chest PA and Lateral IMPRESSION: 1. Bibasilar atelectasis or pneumonia. 2. Pulmonary venous congestion. Reading Location: [facility]
--- NOTE | 2024-07-17 12:03 | RAD_ITS ---
PROCEDURE: ABD INC DECUB AND/OR ERECT REASON FOR EXAM: DIARRHEA Shortness of breath. TECHNIQUE: Supine and upright views of the abdomen were obtained. COMPARISON: None FINDINGS: Moderate constipation identified with fecal material distributed throughout the colon. No evidence of bowel obstruction. No suspicious calcifications. Prior vertebroplasty of the T11 and T12 vertebrae as well as the L1 vertebrae. Prior right total hip replacement. Left pleural effusion with left basilar infiltration and/or atelectasis. Small right pleural effusion. RAD/Abd Inc Decub and/or Erect IMPRESSION: Moderate amount of fecal material is seen throughout the colon. Bilateral pleural effusions left greater than right with the bibasilar atelecta sis worse on the left side. Reading Location: [facility]
== END | disposition home or self-care (01) ==
LOC: RAD 12:01
PROVIDERS: PCP Family Medicine Geriatric Medicine; Referring Provider Family Medicine Geriatric Medicine; Visit Provider Family Medicine Geriatric Medicine
DX: R06.02 Shortness of breath (principal); R19.7 Diarrhea, unspecified
CPT/HCPCS: 71046; 74019

== ENCOUNTER → 2024-07-19 | Outpatient (CLI) | payer MEDICARE, MEDICAID, SELFPAY ==
--- NOTE | 2024-07-19 09:16 | US_ITS ---
EXAM: US urinary bladder CLINICAL INDICATION: URINARY RETENTION/HESITANCY TECHNIQUE: Real-time limited ultrasound of the urinary bladder with image documentation. COMPARISON: No relevant prior studies available. FINDINGS: BLADDER: Urinary bladder wall measures up to 2 0.7 mm thick. Right and left ureteral jets visualized. Urinary bladder distended. Prevoid volume 44.1 cc. Postvoid volume 3.1 cc. US/Post Void Residual Bladder IMPRESSION: Unremarkable exam. Reading Location[facility]
--- NOTE | 2024-07-19 09:26 | CT_ITS ---
PROCEDURE: CHEST WITHOUT CONTRAST REASON FOR EXAM: SOB/MALIGNANT History of bladder cancer. TECHNIQUE: Chest CT without contrast. COMPARISON: Comparison is made with prior study dated February 24, 2022. FINDINGS: Hardware: A left-sided port a catheter is seen. Lymph nodes: No mediastinal hilar or axillary lymphadenopathy. Heart and Vasculature: Normal heart size. No pericardial effusion. Atherosclerotic calcifications of the thoracic aorta. Thoracic aorta and pulmonary arteries have normal contours; noncontrast technique limits evaluation. Coronary Artery Calcifications: Absent Lungs and Airways: There are large bilateral pleural effusions with bibasilar compressive atelectasis left worse than right. Upper Abdomen: Marked right renal atrophy. Bones: Degenerative changes of the thoracic spine. CT/Chest without Contrast IMPRESSION: There are new large bilateral pleural effusions with bibasilar compressive atel ectasis. This is worse on the left side. One or more dose reduction techniques were used (e.g., Automated exposure contr ol, adjustment of the mA and/or kV according to patient size, use of iterative reconstruction technique). Reading Location: [id number]
== END | disposition home or self-care (01) ==
LOC: US 09:15
PROVIDERS: PCP Family Medicine Geriatric Medicine; Referring Provider Family Medicine Geriatric Medicine; Visit Provider Family Medicine Geriatric Medicine
DX: R06.02 Shortness of breath (principal); J91.0 Malignant pleural effusion; R33.9 Retention of urine, unspecified; R39.11 Hesitancy of micturition
CPT/HCPCS: 51798; 71250

== ENCOUNTER → 2024-07-20 | Outpatient (CLI) | payer MEDICARE, MEDICAID, SELFPAY ==
--- NOTE | 2024-07-20 09:15 | US_ITS ---
PROCEDURE: THORACENTESIS W US REASON FOR EXAM: MALIGNANT PE Left pleural effusion. TECHNIQUE: There is evidence of a moderate-sized left pleural effusion. The procedure as well as the benefits and possible complications were explained to the patient including infection, bleeding and pneumothorax. Informed consent was obtained. The patient was in the sitting position. The overlying skin was prepped and draped in usual sterile fashion. Following local anesthetic application, a 5 [place] catheter was placed into the left pleural cavity. 1020 blood-tinged fluid was aspirated. The patient tolerated the procedure well. COMPARISON: None. FINDINGS: Aspiration of 1020 mL of blood-tinged fluid from the left pleural cavity. The patient tolerated the procedure well. US/Thoracentesis W US IMPRESSION: Successful left thoracentesis. No immediate complication is noted. Inspiration expiration views of the chest were ordered. Reading Location: [place] [id number]
[2024-07-20 09:40] VITALS: BP 144/77; PULSE 94; RESP 18; TEMP 36.4; O2SAT 100
[2024-07-20] MEDS: Lidocaine 2% (20 ml mdv) 20 ML Vial INFILT (09:48)
[2024-07-20 09:50] VITALS: BP 142/71; PULSE 91; RESP 18; O2SAT 100
[2024-07-20 09:54] VITALS: BP 127/53; PULSE 94; RESP 18; O2SAT 99
--- NOTE | 2024-07-20 09:55 | RAD_ITS ---
EXAM: XR Chest, 1 View CLINICAL INDICATION: POST THORACENTESIS TECHNIQUE: Frontal view of the chest. COMPARISON: XR Chest dated 07/17/2024 FINDINGS: LUNGS AND PLEURAL SPACES: Pulmonary venous congestion. Decreasing left pleural effusion. No pneumothorax. Persistent right pleural effusion. HEART: Unremarkable. No cardiomegaly. MEDIASTINUM: Unremarkable. Normal mediastinal contour. BONES/JOINTS: Unremarkable. No acute fracture. TUBES, LINES AND DEVICES: Left-sided Mediport with the distal tip in the SVC. No pneumothorax. RAD/Chest Insp/Exp 2 View IMPRESSION: 1. Pulmonary venous congestion. 2. Decreasing left pleural effusion. No pneumothorax. Reading Location: [facility]
[2024-07-20 10:10] VITALS: PULSE 98; RESP 18; O2SAT 98
== END | disposition home or self-care (01) ==
LOC: US 09:11
PROVIDERS: PCP Family Medicine Geriatric Medicine; Referring Provider Family Medicine Geriatric Medicine; Visit Provider Family Medicine Geriatric Medicine
DX: J90 Pleural effusion, not elsewhere classified (principal)
CPT/HCPCS: 32555; 71046

== ENCOUNTER → 2024-07-23 | Outpatient (CLI) | payer MEDICARE, MEDICAID, SELFPAY ==
--- NOTE | 2024-07-23 08:02 | RAD_ITS ---
PROCEDURE: CHEST INSP/EXP 2 VIEW ([id number]), 07/23/2024 REASON FOR EXAM: POST THORA TECHNIQUE: Portable AP view of the chest was obtained in inspiration and expiration. COMPARISON: 07/20/2024 FINDINGS: Heart: Partially obscured, grossly similar. Mediastinum: Mild atherosclerosis. Lungs/pleura: Slightly improved aeration of the lung bases with persistent airspace disease. Decreased now small bilateral pleural effusions. No visible pneumothorax. Biapical pleural/parenchymal scarring. Bones: Demineralization. Thoracolumbar dextroscoliosis. Multilevel spondylosis and changes of kyphoplasty/vertebroplasty. Lines and support devices: Similar left chest wall port/catheter. RAD/Chest Insp/Exp 2 View IMPRESSION: 1. No visible pneumothorax following thoracentesis. Suspect persistent small p leural effusions. 2. Mild adjacent bibasilar airspace disease, compressive atelectasis versus pne umonia. Follow-up to radiographic resolution recommended. Reading Location: [id number]
[2024-07-23 12:18] VITALS: BP 98/61; PULSE 104; RESP 18; TEMP 36.3; O2SAT 93
--- NOTE | 2024-07-23 12:18 | US_ITS ---
PROCEDURE: THORACENTESIS W US REASON FOR EXAM: PLEURAL EFFUSION TECHNIQUE: Ultrasound imaging of right pleural space demonstrates pleural effusion.. The procedure as well as the benefits and possible complications were explained to the patient. Informed consent was obtained. The patient was in the sitting position. The overlying skin was prepped and draped in the usual sterile fashion. Puncture of the right pleural cavity was performed with a 5 Romanian catheter. 810 mL of blood-tinged fluid was aspirated. The patient tolerated the procedure well. A chest radiograph will be obtained. COMPARISON: None. FINDINGS: Successful drainage of 810 mL of blood-tinged right pleural fluid. The patient tolerated the procedure well. US/Thoracentesis W US IMPRESSION: Successful right thoracentesis. No immediate postprocedural complications. Reading Location: [place] [id number]
[2024-07-23] MEDS: Lidocaine 2% (20 ml mdv) 20 ML Vial INFILT (12:28)
[2024-07-23 12:30] VITALS: BP 117/62; PULSE 118; RESP 18; O2SAT 97
[2024-07-23 12:33] VITALS: BP 101/60; PULSE 120; RESP 18; O2SAT 99
[2024-07-23 12:36] VITALS: BP 119/64; PULSE 120; RESP 18; O2SAT 99
== END | disposition home or self-care (01) ==
LOC: US 12:17
PROVIDERS: PCP Family Medicine Geriatric Medicine; Referring Provider Family Medicine Geriatric Medicine; Visit Provider Family Medicine Geriatric Medicine
DX: J90 Pleural effusion, not elsewhere classified (principal)
CPT/HCPCS: 32555; 71046